=== PATIENT | male | born 1955 | race Caucasian/White ===

== ENCOUNTER 2021-07-25 12:55 | Emergency (ER) | payer MEDICARE, OTHER ==
[2021-07-25 13:16] VITALS: TEMP 97.8
[2021-07-25] MEDS ORDERED: ONDANSETRON 4 MG/2 ML VIAL IVP STA (14:11)
[2021-07-25] MEDS ORDERED: MORPHINE SULFATE 4 MG/ML SYRINGE IV STA (14:11)
[2021-07-25] MEDS ORDERED: SODIUM CHLORIDE 0.9% 1,000 ML IV STA (14:11)
--- NOTE | 2021-07-25 14:15 | ED ---
General Adult HPI - General Source: patient, RN notes reviewed Mode of arrival: ambulatory Limitations: no limitations <Kailash Strickland - Last Filed: 07/25/21 15:21> <Jose Luis Corona - Last Filed: 07/25/21 17:03> - General Chief complaint: Abdominal Pain Stated complaint: Abdominal pain Time Seen by Provider: 07/25/21 14:04 - History of Present Illness Initial comments: Patient's a 65-year-old male presented to the emergency room today with a chief complaint of epigastric discomfort. Patient does admit that he's been having symptoms for months. States been increasing. He does admit that it's worse when he wakes up in the morning. He does take [place] for chronic back pain which does seem to help with some of the pain. He does not that he's had some dry heaves. He states he's had some diarrhea. He states he tried to follow with his GI specialist was directed here to the emergency room today for a CAT scan. Patient denies any recent fever, chills, shortness of breath, chest pain, headaches or visual changes, or any other complaints. (Kailash Strickland) Patient does relate that he has had symptoms for approximately 7 weeks with their worse currently. He has the abdominal pain in the midepigastric and left upper abdomen. He does drink regularly. He's been taking his [place] for pain but has been on this for approximately 7 years. He takes 10 mg 3 times a day. He is also taking Ativan. The computed tomography scan of the abdomen and pelvis did show a degree of enteritis but otherwise no acute process. Laboratory is unremarkable. He has an appointment for a colonoscopy and EGD in 3 days. He is on Prilosec 40 mg daily currently. Overall, he may have a degree of enteritis. He also may have a degree of gastritis or peptic ulcer disease due to his alcohol abuse. He is counseled in this regard in detail. He is feeling improved on recheck. In addition he is counseled in regard to alcohol abuse, narcotic use, and benzodiazepine use and it is felt as though she should develop a plan with primary care to get off of these substances/medications and potentially even obtain rehabilitation. is very concerned and understands. Patient is discharge. (Jose Luis Corona) - Related Data Home Medications Medication Instructions Recorded Confirmed Hydrocodone/Acetaminophen [Vicodin 1 each PO Q6HR PRN 09/08/14 09/08/14 5-300 mg Tablet] Previous Rx's Medication Instructions Recorded Dicyclomine [Bentyl] 20 mg PO QID PRN #20 tablet 07/25/21 Ondansetron Odt [Zofran ODT] 8 mg PO Q8HR PRN #10 tab 07/25/21 Allergies Allergy/AdvReac Type Severity Reaction Status Date / Time ceftriaxone Allergy Unknown Verified 07/25/21 13:16 Review of Systems ROS Other: All systems not noted in ROS Statement are negative. <Kailash Strickland - Last Filed: 07/25/21 15:21> ROS Other: All systems not noted in ROS Statement are negative. <Jose Luis Corona - Last Filed: 07/25/21 17:03> ROS Statement: Those systems with pertinent positive or pertinent negative responses have been documented in the HPI. Past Medical History Past Medical History: No Reported History Additional Past Medical History / Comment(s): Carpal tunnel syndrome, chronic neck pain related to a work-related injury, History of Any Multi-Drug Resistant Organisms: None Reported Additional Past Surgical History / Comment(s): carpal tunnel BL hands Past Anesthesia/Blood Transfusion Reactions: No Reported Reaction Past Psychological History: No Psychological Hx Reported Smoking Status: Never smoker Past Alcohol Use History: Daily Past Drug Use History: Marijuana - Past Family History Father Family Medical History: Unable to Obtain Mother Family Medical History: Unable to Obtain <Kailash Strickland - Last Filed: 07/25/21 15:21> General Exam Limitations: no limitations <Kailash Strickland - Last Filed: 07/25/21 15:21> - General Exam Comments Initial Comments: General: The patient is awake and alert, in no distress, and does not appear acutely ill. Eye: extra-ocular movements are intact. There is normal conjunctiva bilaterally. No signs of icterus. Ears, nose, mouth and throat: There are moist mucous membranes and no oral lesions. Neck: The neck is supple Cardiovascular: There is a regular rate and rhythm.rub or gallop is appreciated. Respiratory: Lungs are clear to auscultation, respirations are non-labored, breath sounds are equal. No wheezes, stridor, rales, or rhonchi. Gastrointestinal: Patient does have tenderness epigastric and left upper quadrants. No rebound, guarding. Musculoskeletal: Normal ROM, no tenderness. Strength 5/5. Sensation intact. Neurological: A&O x 3. CN II-XII intact, There are no obvious motor or sensory deficits. Coordination appears grossly intact. Speech is normal. Skin: Skin is warm and dry and no rashes or lesions are noted. Psychiatric: Cooperative, appropriate mood & affect, normal judgment. (Kailash Strickland) Course Vital Signs 07/25/21 07/25/21 13:12 16:03 Temperature 97.8 F Pulse Rate 75 76 Respiratory 20 18 Rate Blood Pressure 110/69 165/91 O2 Sat by Pulse 95 96 Oximetry EKG Findings - EKG Comments: EKG Findings:: EKG performed: 1423. Normal sinus rhythm at 76 bpm. GA interval 152. QRS 74. QT/QTc 344/387. No acute ST changes. <Kailash Strickland - Last Filed: 07/25/21 15:21> Medical Decision Making - Lab Data Result diagrams: 07/25/21 14:19 07/25/21 14:19 <Kailash Strickland - Last Filed: 07/25/21 15:21> - Lab Data Result diagrams: 07/25/21 14:19 07/25/21 14:19 <Jose Luis Corona - Last Filed: 07/25/21 17:03> - Medical Decision Making 1520: Case discussed in detail with attending physician Dr. Corona and signed out at this time. (Kailash Strickland) - Lab Data Lab Results 07/25/21 07/25/21 07/25/21 Range/Units 14:19 14:19 14:19 WBC 7.1 (3.8-10.6) k/uL RBC 4.54 (4.30-5.90) m/uL Hgb 14.1 (13.0-17.5) gm/dL Hct 43.9 (39.0-53.0) % MCV 96.6 (80.0-100.0) fL MCH 31.0 (25.0-35.0) pg MCHC 32.0 (31.0-37.0) g/dL RDW 14.2 (11.5-15.5) % Plt Count 274 (150-450) k/uL MPV 7.6 Neutrophils % 65 % Lymphocytes % 22 % Monocytes % 8 % Eosinophils % 2 % Basophils % 0 % Neutrophils # 4.6 (1.3-7.7) k/uL Lymphocytes # 1.6 (1.0-4.8) k/uL Monocytes # 0.6 (0-1.0) k/uL Eosinophils # 0.1 (0-0.7) k/uL Basophils # 0.0 (0-0.2) k/uL Sodium 131 L (137-145) mmol/L Potassium 5.2 H (3.5-5.1) mmol/L Chloride 99 (98-107) mmol/L Carbon Dioxide 25 (22-30) mmol/L Anion Gap 7 mmol/L BUN 22 H (9-20) mg/dL Creatinine 1.10 (0.66-1.25) mg/dL Est GFR (CKD-EPI)AfAm 81 (>60 ml/min/1.73 sqM) Est GFR (CKD-EPI)NonAf 70 (>60 ml/min/1.73 sqM) Glucose 125 H (74-99) mg/dL Calcium 9.9 (8.4-10.2) mg/dL Total Bilirubin 0.9 (0.2-1.3) mg/dL AST 42 (17-59) U/L ALT 32 (4-49) U/L Alkaline Phosphatase 118 (38-126) U/L Troponin I (0.000-0.034) ng/mL Total Protein 6.9 (6.3-8.2) g/dL Albumin 4.1 (3.5-5.0) g/dL Amylase 65 (30-110) U/L Lipase 184 (23-300) U/L Urine Color Yellow Urine Appearance Clear (Clear) Urine pH 6.0 (5.0-8.0) Ur Specific Clare 1.022 (1.001-1.035) Urine Protein Trace H (Negative) Urine Glucose (UA) Negative (Negative) Urine Ketones Negative (Negative) Urine Blood Negative (Negative) Urine Nitrite Negative (Negative) Urine Bilirubin Negative (Negative) Urine Urobilinogen 2.0 (<2.0) mg/dL Ur Leukocyte Esterase Negative (Negative) 07/25/21 Range/Units 14:19 WBC (3.8-10.6) k/uL RBC (4.30-5.90) m/uL Hgb (13.0-17.5) gm/dL Hct (39.0-53.0) % MCV (80.0-100.0) fL MCH (25.0-35.0) pg MCHC (31.0-37.0) g/dL RDW (11.5-15.5) % Plt Count (150-450) k/uL MPV Neutrophils % % Lymphocytes % % Monocytes % % Eosinophils % % Basophils % % Neutrophils # (1.3-7.7) k/uL Lymphocytes # (1.0-4.8) k/uL Monocytes # (0-1.0) k/uL Eosinophils # (0-0.7) k/uL Basophils # (0-0.2) k/uL Sodium (137-145) mmol/L Potassium (3.5-5.1) mmol/L Chloride (98-107) mmol/L Carbon Dioxide (22-30) mmol/L Anion Gap mmol/L BUN (9-20) mg/dL Creatinine (0.66-1.25) mg/dL Est GFR (CKD-EPI)AfAm (>60 ml/min/1.73 sqM) Est GFR (CKD-EPI)NonAf (>60 ml/min/1.73 sqM) Glucose (74-99) mg/dL Calcium (8.4-10.2) mg/dL Total Bilirubin (0.2-1.3) mg/dL AST (17-59) U/L ALT (4-49) U/L Alkaline Phosphatase (38-126) U/L Troponin I <0.012 (0.000-0.034) ng/mL Total Protein (6.3-8.2) g/dL Albumin (3.5-5.0) g/dL Amylase (30-110) U/L Lipase (23-300) U/L Urine Color Urine Appearance (Clear) Urine pH (5.0-8.0) Ur Specific Clare (1.001-1.035) Urine Protein (Negative) Urine Glucose (UA) (Negative) Urine Ketones (Negative) Urine Blood (Negative) Urine Nitrite (Negative) Urine Bilirubin (Negative) Urine Urobilinogen (<2.0) mg/dL Ur Leukocyte Esterase (Negative) Disposition <Kailash Strickland - Last Filed: 10/12/21 15:21> Is patient prescribed a controlled substance at d/c from ED?: No Time of Disposition: 17:03 <Jose Luis Corona - Last Filed: 07/25/21 17:03> Clinical Impression: Abdominal pain, Nausea and vomiting, Diarrhea, Enteritis, Hypertension, Alcohol abuse, Gastritis Disposition: HOME SELF-CARE Condition: Good Instructions (If sedation given, give patient instructions): Abdominal Pain (ED), Gastroenteritis (ED), Abuse of Alcohol (ED) Prescriptions: Dicyclomine [Bentyl] 20 mg PO QID PRN #20 tablet PRN Reason: Pain Ondansetron Odt [Zofran ODT] 8 mg PO Q8HR PRN #10 tab PRN Reason: Nausea And Vomiting Referrals: Abby Barroso MD [Primary Care Provider] - 1-2 days
[2021-07-25 14:28] LABS: Basophils % (A) 0 %; Eosinophils # (A) 0.1 k/uL (0-0.7); Eosinophils % (A) 2 %; HCT 43.9 % (39.0-53.0); HGB 14.1 gm/dL (13.0-17.5); Lymphocytes # (A) 1.6 k/uL (1.0-4.8); Lymphocytes % (A) 22 %; MCV 96.6 fL (80.0-100.0); Mean Platelet Volume 7.6; Monocytes # (A) 0.6 k/uL (0-1.0); Monocytes % (A) 8 %; Neutrophils # (A) 4.6 k/uL (1.3-7.7); Neutrophils % (A) 65 %; Platelet Count 274 k/uL (150-450); RBC 4.54 m/uL (4.30-5.90); RDW 14.2 % (11.5-15.5); WBC 7.1 k/uL (3.8-10.6)
[2021-07-25 14:51] LABS: Appearance,Urine Clear (Clear); Bilirubin,Urine Negative (Negative); Blood,Urine Negative (Negative); Color,Urine Yellow; Glucose,Urine (UA) Negative (Negative); Ketones,Urine Negative (Negative); Leukocyte Esterase,Urine Negative (Negative); Nitrite,Urine Negative (Negative); Protein,Urine Trace (Negative); Specific Gravity,Urine 1.022 (1.001-1.035)
[2021-07-25 15:11] LABS: Albumin 4.1 g/dL (3.5-5.0); Calcium 9.9 mg/dL (8.4-10.2); Potassium 5.2 mmol/L (3.5-5.1); Total Bilirubin 0.9 mg/dL (0.2-1.3); Total Protein 6.9 g/dL (6.3-8.2)
--- NOTE | 2021-07-25 15:58 | CT ---
EXAMINATION TYPE: CT abdomen pelvis w con DATE OF EXAM: 07/25/2021 COMPARISON: CT 09/08/2014 HISTORY: Upper Abdominal pain. CT DLP: 671 mGycm Automated exposure control for dose reduction was used. TECHNIQUE: Helical acquisition of images from the lung bases through the pelvis have been completed. CONTRAST: Performed without Oral Contrast and with IV Contrast, patient injected with 100 mL of Isovue 300. FINDINGS: There is right inguinal hernia containing fat LUNG BASES: Calcified pleural surface present at the left lung base, some local scarring which is imp roved somewhat in the interval, no acute pleural or pericardial effusion. AORTA: No significant abnormality is appreciated. LIVER/GB: The liver shows low attenuation, there are subcentimeter probable cystic foci inferiorly ax ial image #28, and the liver shows low attenuation possibly due to hepatic steatosis, gallbladder is unremarkable PANCREAS: No significant abnormality is seen. SPLEEN: No significant interval change is seen, spleen is small. ADRENALS: No significant abnormality is seen. KIDNEYS: No significant abnormality is seen. REPRODUCTIVE ORGANS: Enlarged with associated calcification BOWEL: Fluid attenuation present within the cecum as well as some bowel loops, there is some questio nable small bowel wall folds with a thickened appearance, there is no obstruction, the appendix is no t seen. FREE AIR: No Free Air visible. ASCITES: None visible. PELVIC ADENOPATHY: None visualized. RETROPERITONEAL ADENOPATHY: No Retroperitoneal Adenopathy visible. URINARY BLADDER: No significant abnormality is seen. OSSEOUS STRUCTURES: Bilateral spondylolysis present at L5, anterolisthesis grade 1 L5-S1. Is multile marquita spondylosis, spinal curvature, facet arthropathy change. IMPRESSION: CORRELATE FOR POSSIBLE ENTERITIS. THERE IS A RIGHT INGUINAL HERNIA CONTAINING FAT WHICH IS DEVELOPED IN THE INTERVAL. ADDITIONAL FINDINGS ABOVE.
[2021-07-25 17:12] VITALS: BP 170/86; PULSE 73; RESP 16
== END 2021-07-25 17:10 | disposition home or self-care (01) ==
LOC: EC 12:55
DX: K29.70 Gastritis, unspecified, without bleeding (principal); K52.9 Noninfective gastroenteritis and colitis, unspecified; F10.10 Alcohol abuse, uncomplicated; I10 Essential (primary) hypertension; R19.7 Diarrhea, unspecified; R11.2 Nausea with vomiting, unspecified; F12.90 Cannabis use, unspecified, uncomplicated
CPT/HCPCS: 36415; 93005; 80053; 82150; 83690; 84484; 85025; 81003; 74177; 99284; 96374; 96375; 96361; J2270; J2405; Q9967

== ENCOUNTER 2021-07-28 07:51 | Day surgery (SDC) | payer MEDICARE, OTHER ==
[2021-07-26 10:49] VITALS: BMI 22.6
[~2021-07-28 07:51] MED LIST: LACTATED RINGERS 1,000 ML IV SCH
[2021-07-28 08:08] VITALS: TEMP 97.8
[2021-07-28] MEDS ORDERED: LACTATED RINGERS 1,000 ML IV ONE (08:08)
[2021-07-28] MEDS ORDERED: PROPOFOL 10 MG/ML 20 ML VIAL IV ONE (09:08)
[2021-07-28] MEDS ORDERED: LIDOCAINE 1% INJ 10MG/ML (20 ML MDV) ONE (09:08)
--- NOTE | 2021-07-28 09:36 | P.PCN ---
Date of Procedure: 07/28/21 Procedure(s) Performed: Brief history: Patient is a pleasant 65-year-old white male scheduled for an elective upper endoscopy as well as colonoscopy as a part of evaluation of epigastric pain for the last few weeks duration and screening for colon cancer Procedure performed: Esophagogastroduodenoscopy with biopsy. Colonoscopy Preoperative diagnosis: Chronic epigastric pain Screening for colon cancer Anesthesia: MAC Procedure: After informed consent was obtained from the patient was brought into the endoscopy unit and IV sedation was administered by anesthesia under continuous monitoring. Initially upper endoscopy was done. The Olympus GF 160 video endoscope was inserted inserted into the mouth and esophagus intubated without any difficulty and was gradually advanced into the stomach and duodenum and carefully examined. The bulb and second part of the duodenum appeared normal. The scope was then withdrawn into the stomach adequately insufflated with air and upon careful examination the antrum had mild gastritis and biopsies were done from this area. The body, cardia and fundus appeared normal. The scope was then withdrawn into the esophagus. The GE junction was located at 40 cm to the incisors. small sliding type hiatal hernia noted It appeared regular with no erythema erosions or ulcerations. Rest of the esophagus appeared normal. biopsies were done from the distal esophagus. Patient tolerated the procedure well. At this time the patient continued to remain sedation. Initial digital rectal examination was normal. Olympus CF 160 video colonoscope was then inserted into the rectum and gradually advanced to the cecum without any difficulty. Careful examination was performed as the scope was gradually being withdrawn. The prep was excellent. The cecum, ascending colon, transverse colon, descending colon, sigmoid colon and rectum appeared normal. Retroflexion was performed in the rectum and small internal hemorrhoidse noted. Patient tolerated the procedure well. Impression: 1. Upper endoscopy revealed mild antral gastritis and small hiatal hernia 2. Colonoscopy revealed small internal hemorrhoids but no evidence of colorectal neoplasia Recommendations: Findings of this examination were discussed with the patient as well as his family. He was advised to follow with the biopsy results. he will continue his current medications and he was advised to have a repeat screening colonoscopy in 10 years I
[2021-07-28 09:43] VITALS: PULSE 52; RESP 16
[2021-07-28 09:57] VITALS: BP 141/79
== END 2021-07-28 10:33 | disposition home or self-care (01) ==
LOC: ORWHC2ENDO 07:51
PROVIDERS: ATTEND Internal Medicine Gastroenterology
DX: Z12.11 Encounter for screening for malignant neoplasm of colon (principal); G89.29 Other chronic pain; K29.50 Unspecified chronic gastritis without bleeding; K44.9 Diaphragmatic hernia without obstruction or gangrene; K64.8 Other hemorrhoids
CPT/HCPCS: 43239; 88305; J2001; J2704; G0121

== ENCOUNTER 2022-07-05 09:50 | Day surgery (SDC) | payer MEDICARE, OTHER ==
[~2022-07-05 09:50] MED LIST changes: +HEPARIN SODIUM,PORCINE/PF 5,000 UNIT/0.5 ML SYRINGE SQ PRN; -LACTATED RINGERS 1,000 ML IV SCH
[2022-07-05] MEDS ORDERED: GABAPENTIN 300 MG CAP PO PRN (09:55)
[2022-07-05] MEDS ORDERED: ACETAMINOPHEN TAB 500 MG TAB PO PRN (09:55)
[2022-07-05] MEDS ORDERED: TAMSULOSIN 0.4 MG CAP.ER.24H PO PRN (09:55)
[2022-07-05] MEDS ORDERED: MELOXICAM 7.5 MG TAB PO PRN (09:55)
--- NOTE | 2022-07-05 10:00 | P.GSHP ---
History of Present Illness H&P Date: 07/05/22 CHIEF COMPLAINT: Inguinal hernia, right. HISTORY OF PRESENT ILLNESS: The patient is a 66-year-old male who presents with a history of swelling and pain along the right groin. He has noted increased swelling including pain of the area. Now he presents for repair of his inguinal hernia. Additionally, he has history of hyponatremia. PAST MEDICAL HISTORY: Please see list. PAST SURGICAL HISTORY: Please see list. MEDICATIONS: Please see list. ALLERGIES: Please see list. SOCIAL HISTORY: No illicit drug use FAMILY HISTORY: No reports of Crohn disease or ulcerative colitis. REVIEW OF ORGAN SYSTEMS: CONSTITUTIONAL: No reports of fevers or chills. No reports of weight loss despite prior attempts. GI: Denies any blood in stools or constipation. PHYSICAL EXAM: VITAL SIGNS: Stable GENERAL: Well-developed pleasant in no acute distress. HEENT: No scleral icterus. Extraocular movements grossly intact. Moist buccal mucosa. NECK: Supple without lymphadenopathy. CHEST: Unlabored respirations. Equal bilateral excursions. CARDIOVASCULAR: Regular rate and rhythm. Distal 2+ pulses. ABDOMEN: Soft, nondistended. No peritoneal signs. Moderate tenderness right lower quadrant MUSCULOSKELETAL: No clubbing, cyanosis, or edema. ASSESSMENT: 1. Inguinal hernia, right initial and symptomatic. 2. History of hyponatremia with COPD PLAN: 1. Recommend proceeding robotic inguinal repair with mesh with possible bilateral approach. 2. Benefits and risks of surgical intervention was discussed including possibility of open technique. 3. DVT prophylaxis. 4. Antibiotic prophylaxis. 5. Cardiac risk assessment recently obtained a month ago. 6. Patient elevated risk due to hyponatremia, COPD 7. Repeat CBC and CMP Past Medical History Past Medical History: No Reported History Additional Past Medical History / Comment(s): Carpal tunnel syndrome, chronic neck pain related to a work-related injury, History of Any Multi-Drug Resistant Organisms: None Reported Additional Past Surgical History / Comment(s): carpal tunnel BL hands Past Anesthesia/Blood Transfusion Reactions: No Reported Reaction Smoking Status: Current every day smoker - Past Family History Father Family Medical History: No Reported History Mother Family Medical History: No Reported History Brother(s) Family Medical History: Cancer Medications and Allergies Home Medications Medication Instructions Recorded Confirmed Type lisinopriL [Zestril] 10 mg PO DAILY 07/28/21 05/28/22 History Albuterol Sulfate [Ventolin HFA] 1 puff INHALATION RT-QID PRN 05/28/22 05/28/22 History Atorvastatin [Lipitor] 40 mg PO DAILY 05/28/22 05/28/22 History Multivitamins, Thera [Multivitamin 1 tab PO DAILY 05/28/22 05/28/22 History (formulary)] [place]-3/Dha/Epa/Fish Oil [Fish Oil 1 cap PO DAILY 05/28/22 05/28/22 History 1,000 mg Softgel] Omeprazole 40 mg PO DAILY 05/28/22 05/28/22 History Albuterol Inhaler [Ventolin Hfa 1 - 2 puff INHALATION RT-Q6H PRN 05/31/22 Rx Inhaler] 30 Days #1 dispenser Fluticasone Propion/Salmeterol 1 inhalation PO BID 30 Days #1 each 05/31/22 Rx [Wixela 500-50 Inhub] Ipratropium-Albuterol Nebulize 3 ml INHALATION QID 30 Days #400 ml 05/31/22 Rx [Duoneb 0.5 mg-3 mg/3 ml Soln] Folic Acid 1 mg PO DAILY #30 tab 06/01/22 Rx HYDROcodone/APAP 10-325MG [Inglis 1 tab PO TID #21 tab 06/01/22 Rx 10-325] LORazepam [Ativan] 1 mg PO TID #45 tab 06/01/22 Rx Thiamine [Vitamin B-1] 100 mg PO BID-W/MEALS #30 tab 06/01/22 Rx methylPREDNISolone Dose Pack 4 mg PO DIRECTED #21 tab 06/01/22 Rx [Medrol Dose Pack] Allergies Allergy/AdvReac Type Severity Reaction Status Date / Time ceftriaxone Allergy STATES Verified 05/28/22 21:52 "MADE ME VERY SICK"
[2022-07-05] MEDS ORDERED: DEXAMETHASONE SOD PHOSPHATE 4 MG/ML 1 ML VIAL IV ONE (10:12)
[2022-07-05] MEDS ORDERED: ONDANSETRON 4 MG/2 ML VIAL IVP ONE (10:12)
[2022-07-05] MEDS ORDERED: LACTATED RINGERS 1,000 ML IV SCH (10:12)
[2022-07-05] MEDS ORDERED: HYDROmorphone 0.5 MG/0.5 ML SYRINGE IVP PRN (10:12)
[2022-07-05] MEDS ORDERED: LIDOCAINE 1% (10MG/ML) FOR IV START INTRADERMA ONE (10:51)
[2022-07-05 10:58] LABS: Basophils # (A) 0.1 k/uL (0-0.2); Basophils % (A) 1 %; Eosinophils # (A) 0.2 k/uL (0-0.7); Eosinophils % (A) 3 %; HGB 13.2 gm/dL (13.0-17.5); Lymphocytes # (A) 1.8 k/uL (1.0-4.8); Lymphocytes % (A) 33 %; MCH 31.3 pg (25.0-35.0); MCHC 32.2 g/dL (31.0-37.0); MCV 97.1 fL (80.0-100.0); Mean Platelet Volume 7.3; Monocytes # (A) 0.5 k/uL (0-1.0); Monocytes % (A) 9 %; Neutrophils # (A) 2.7 k/uL (1.3-7.7); Neutrophils % (A) 51 %; Platelet Count 347 k/uL (150-450); RBC 4.22 m/uL (4.30-5.90); RDW 13.9 % (11.5-15.5); WBC 5.3 k/uL (3.8-10.6)
[2022-07-05] MEDS ORDERED: MIDAZOLAM 2 MG/2 ML VIAL IV ONE (11:08)
[2022-07-05] MEDS ORDERED: fentaNYL (PF) 50 MCG/ML 2 ML AMP IV ONE (11:08)
[2022-07-05 11:14] LABS: Calcium 9.2 mg/dL (8.4-10.2); Potassium 4.6 mmol/L (3.5-5.1); Total Bilirubin 0.7 mg/dL (0.2-1.3); Total Protein 6.1 g/dL (6.3-8.2)
[2022-07-05] MEDS ORDERED: GLYCOPYRROLATE 0.2 MG/ML 2 ML VIAL ONE (11:50)
[2022-07-05] MEDS ORDERED: PROPOFOL 10 MG/ML 20 ML VIAL IV ONE (11:50)
[2022-07-05] MEDS ORDERED: MIDAZOLAM 2 MG/2 ML VIAL ONE (11:50)
[2022-07-05] MEDS ORDERED: SODIUM CHLORIDE 0.9% (PF) 10 ML VIAL ONE (11:50)
[2022-07-05] MEDS ORDERED: ROCURONIUM 10 MG/ML (5 ML VIAL) IV ONE (11:50)
[2022-07-05] MEDS ORDERED: fentaNYL (PF) 50 MCG/ML 2 ML AMP ONE (11:50)
[2022-07-05] MEDS ORDERED: LIDOCAINE 2% INJ 20 MG/ML (2 ML VIAL) ONE (11:50)
[2022-07-05] MEDS ORDERED: SUCCINYLCHOLINE CHLORIDE 200 MG/10 ML VIAL IV ONE (11:50)
[2022-07-05] MEDS ORDERED: ROPIVACAINE 5 MG/ML 30 ML VIAL ONE (11:50)
[2022-07-05] MEDS ORDERED: ePHEDrine 50 MG/ML 1 ML VIAL ONE (11:50)
[2022-07-05] MEDS ORDERED: NEOSTIGMINE 1 MG/ML 10 ML VIAL ONE (11:50)
[2022-07-05] MEDS ORDERED: BUPIVACAIN-EPI 0.25%-1:200,000 30 ML VIAL SQ ONE ×2 (12:00→12:25)
--- NOTE | 2022-07-05 12:32 | P.ANPRN ---
Procedure Note - Anesthesia - Nerve Block Performed Bilateral Transversus Abdominis Single Time Out Performed: Yes (1108) Date of Procedure: 07/05/22 Procedure Start Time: : Procedure Stop Time: :18 Location of Patient: PreOp Indication: Acute Post-Operative Pain, Requested by Surgeon Specifically requested for management of pain by : Alissa Cano Sedation Type: Sedate with meaningful contact maintained Preparation: Sterile Prep Position: Supine Catheter: None Needle Types: Pajunk Needle Gauge: 21 Ultrasound used to visualize needle placement: Yes Ultrasound used to observe medication spread: Yes Injectate: 0.5% Ropivacaine (see comment for volume) (15cc + 10cc nacl pf each side) Blood Aspirated: No Pain Paresthesia on Injection Noted: No Resistance on Injection: Normal Image Stored and Saved: Yes Events: Uneventful and Well Tolerated
[2022-07-05] MEDS ORDERED: KETOROLAC 15 MG/ML 1 ML VIAL IVP ONE (13:36)
[2022-07-05 13:40] VITALS: TEMP 97.3
[2022-07-05] MEDS ORDERED: LACTATED RINGERS 1,000 ML IV ONE (14:42)
[2022-07-05] MEDS ORDERED: HYDROcodone/APAP 10-325MG 1 EACH TAB ONE (15:00)
[2022-07-05] MEDS ORDERED: HYDROcodone/APAP 10-325MG 1 EACH TAB PO ONE (15:04)
[2022-07-05] MEDS ORDERED: TAMSULOSIN 0.4 MG CAP.ER.24H PO STA (15:20)
--- NOTE | 2022-07-05 16:08 | P.OP ---
Date of Procedure: 07/05/22 Description of Procedure: SURGEON: ALISSA CANO MD PREOPERATIVE DIAGNOSES: 1. Initial right inguinal hernia. 2. Chronic obstructive pulmonary disease 3. History of hyponatremia 4. Hypertensive heart disease 5. Gastroesophageal reflux disease 6. Hyperlipidemia 7. Tobacco abuse disorder 8. Tobacco cessation and counseling POSTOPERATIVE DIAGNOSES: 1. Initial right inguinal hernia, direct 2. Chronic obstructive pulmonary disease 3. History of hyponatremia 4. Hypertensive heart disease 5. Gastroesophageal reflux disease 6. Hyperlipidemia 7. Tobacco abuse disorder 8. Tobacco cessation and counseling OPERATION: 1. Robotic-assisted da Eladio Xi laparoscopic right inguinal hernia repair with mesh, 11.[address] 2. Excision of subfascial right inguinal lipoma, 2 cm ANESTHESIA: General with local anesthetic ESTIMATED BLOOD LOSS: 5 mL. SPECIMENS REMOVED: Right inguinal hernia lipoma COMPLICATIONS: None. FINDINGS: 1. Nyhus type II direct inguinal hernia, reducible, initial, 3 cm 2. Non-absorbable 2-0 VLOC used 3. Subfascial right inguinal lipoma, 2 cm INDICATIONS: The patient is a 66-year-old gentleman who presents with history of right groin pain. Tobacco cessation counseling was performed due to tobacco abuse disorder. Now presents for definitive surgical intervention. Laparoscopic versus open and robotic approaches were discussed. Benefits and risks including bleeding, infection, injury to the vas deferens as well as sterility and chronic groin pain were reviewed. Placement of mesh was also described. Informed consent was obtained. DESCRIPTION: In the preoperative area, the patient was marked with indelible marker along the inguinal hernia. The patient was brought to the operating room and initially laid in supine position. The abdomen had been prepped and draped in standard sterile fashion. Ioban draping was also placed. Prior to incision, a timeout protocol was confirmed with surgical team regarding patient's name including procedures to be performed and location along the right groin. Initial positioning for the robotic assisted ports were selected whereby 20 cm superior to the target anatomy, 0 degree 5 mm laparoscopic trocar entry was performed at the left upper quadrant. The abdomen was insufflated to 15 mmHg which he had tolerated well. Diagnostic laparoscopy demonstrated a indirect inguinal hernia along the right groin. Next, along the epigastrium, 8 mm robot trocar was placed. An 8-mm robotic trocar was placed under direct visualization at the right upper quadrant. An 8 mm port was placed at the left upper quadrant. All trocars were positioned between 8 to 10-cm apart from each other. An accessory trocar was placed on the right lateral abdominal wall 12 mm. The Fanzter XI robot was primed, draped, prepared for docking along the right side of the patient. The patient was placed in Trendelenberg position 14-degrees. I then went to the Fanzter Xi console. The product safety technical assistant was at bedside for exchange of the robot arms and equipment. No hernia was identified along the left groin. The right inguinal hernia sac was evaginated whereby the peritoneum was scored using Endo scissors with cautery. Once completely reduced into the abdominal cavity, the peritoneal sac of the hernia was stripped along an direct inguinal hernia and a subfascial inguinal lipoma, 2-cm and sac was resected and then passed off for further pathological analysis. The size of the hernia defect was 3 cm with intraoperative films obtained. Using a 2-0 VLOC, the peritoneal defect of the right inguinal hernia site was closed using a pursestring suture. The defect was found to be completely closed with complete reduction of the right direct inguinal hernia was confirmed. As an onlay, an 11.[address] mesh by [employer] was initially cut in half and entered into the abdominal cavity via the 8 mm trocar. The mesh was tacked to the pelvis using 2-0 VLOC 9-inch length sutures. The robot was undocked from the patient's bedside. I then rescrubbed into the case. A 12 trocar in the right lateral abdominal wall was oversewn using 0 Vicryl and Mauricio Davidson. Insufflation was released from the abdominal cavity and all instruments were removed from the abdominal cavity. The rest of incisions were reapproximated using 4-0 Monocryl in a running subcuticular fashion. Incisions were cleansed using dilute hydrogen peroxide. Liquid glue was applied to the skin. At the end of the procedure, the needle, sponge and instrument counts had been verified correct by the surgical services manager. The patient had tolerated the procedure well and was taken to the postanesthesia care unit in stable condition. Plan - Discharge Summary New Discharge Prescriptions: New Cyclobenzaprine [Flexeril] 10 mg PO TID #30 tab Simethicone [Gas-X] 125 mg PO AC-TID PRN #20 capsule PRN Reason: Pain Acetaminophen Tab [Tylenol Tab] 1,000 mg PO Q6HR PRN #30 tablet PRN Reason: Pain Continue Omeprazole 40 mg PO DAILY Albuterol Sulfate [Ventolin HFA] 1 puff INHALATION RT-QID PRN PRN Reason: Shortness Of Breath Atorvastatin [Lipitor] 40 mg PO DAILY Albuterol Inhaler [Ventolin Hfa Inhaler] 1 - 2 puff INHALATION RT-Q6H PRN 30 Days #1 dispenser PRN Reason: Dyspnea Folic Acid 1 mg PO DAILY #30 tab Thiamine [Vitamin B-1] 100 mg PO BID-W/MEALS #30 tab LORazepam [Ativan] 1 mg PO TID #45 tab lisinopriL [Zestril] 10 mg PO DAILY Multivitamins, Thera [Multivitamin (formulary)] 1 tab PO DAILY Granite-3/Dha/Epa/Fish Oil [Fish Oil 1,000 mg Softgel] 1 cap PO DAILY Ipratropium-Albuterol Nebulize [Duoneb 0.5 mg-3 mg/3 ml Soln] 3 ml INHALATION QID 30 Days #400 ml Fluticasone Propion/Salmeterol [Wixela 500-50 Inhub] 1 inhalation PO BID 30 Days #1 each HYDROcodone/APAP 10-325MG [[place] 10-325] 1 tab PO TID #21 tab Discharge Medication List lisinopriL [Zestril] 10 mg PO DAILY 07/28/21 [History] Albuterol Sulfate [Ventolin HFA] 1 puff INHALATION RT-QID PRN 05/28/22 [History] Atorvastatin [Lipitor] 40 mg PO DAILY 05/28/22 [History] Multivitamins, Thera [Multivitamin (formulary)] 1 tab PO DAILY 05/28/22 [History] Granite-3/Dha/Epa/Fish Oil [Fish Oil 1,000 mg Softgel] 1 cap PO DAILY 05/28/22 [History] Omeprazole 40 mg PO DAILY 05/28/22 [History] Albuterol Inhaler [Ventolin Hfa Inhaler] 1 - 2 puff INHALATION RT-Q6H PRN 30 Days #1 dispenser 05/31/22 [Rx] Fluticasone Propion/Salmeterol [Wixela 500-50 Inhub] 1 inhalation PO BID 30 Days #1 each 05/31/22 [Rx] Ipratropium-Albuterol Nebulize [Duoneb 0.5 mg-3 mg/3 ml Soln] 3 ml INHALATION QI D 30 Days #400 ml 05/31/22 [Rx] Folic Acid 1 mg PO DAILY #30 tab 06/01/22 [Rx] HYDROcodone/APAP 10-325MG [[place] 10-325] 1 tab PO TID #21 tab 06/01/22 [Rx] LORazepam [Ativan] 1 mg PO TID #45 tab 06/01/22 [Rx] Thiamine [Vitamin B-1] 100 mg PO BID-W/MEALS #30 tab 06/01/22 [Rx] Acetaminophen Tab [Tylenol Tab] 1,000 mg PO Q6HR PRN #30 tablet 07/05/22 [Rx] Cyclobenzaprine [Flexeril] 10 mg PO TID #30 tab 07/05/22 [Rx] Simethicone [Gas-X] 125 mg PO AC-TID PRN #20 capsule 07/05/22 [Rx] Follow up Appointment(s)/Referral(s): Alissa Cano MD [STAFF PHYSICIAN] - 07/10/22 (TELEHEALTH) Patient Instructions/Handouts: *[facility] - Anesthesia Discharge Instructions, Inguinal Hernia Repair (DC), *[facility] - Managing Your Pain After Surgery Without Opioids Activity/Diet/Wound Care/Special Instructions: Using antibacterial soap. No lifting over 10 pounds 2 weeks, Jul 19February shower. No bathtub soaks for 2 weeks, Jul 19 Use ice along incisions for today to prevent swelling. Take tylenol, flexeril simethicone scheduled for 3 days for best pain relief Discharge Disposition: HOME SELF-CARE
[2022-07-05 18:22] VITALS: BP 132/73; PULSE 72; RESP 16
== END 2022-07-05 18:26 | disposition home or self-care (01) ==
LOC: OR 09:50
PROVIDERS: ATTEND Surgery Plastic and Reconstructive Surgery
DX: K40.90 Unilateral inguinal hernia, without obstruction or gangrene, not specified as recurrent (principal); G89.18 Other acute postprocedural pain; J44.9 Chronic obstructive pulmonary disease, unspecified; I11.0 Hypertensive heart disease with heart failure; I50.9 Heart failure, unspecified; K21.9 Gastro-esophageal reflux disease without esophagitis; E78.5 Hyperlipidemia, unspecified; F17.200 Nicotine dependence, unspecified, uncomplicated; G56.00 Carpal tunnel syndrome, unspecified upper limb; M54.2 Cervicalgia; G89.29 Other chronic pain; Z80.9 Family history of malignant neoplasm, unspecified; Z79.51 Long term (current) use of inhaled steroids; Z79.899 Other long term (current) drug therapy; Z88.1 Allergy status to other antibiotic agents; Z71.6 Tobacco abuse counseling
CPT/HCPCS: 49650; 11402; 64488; 80053; 85025; 88302; C1781; J2250; J0330; J1100; J2710; J0690; J2405; J3010; J2795; J1885; J2704; J1170; J1644; J2001

== ENCOUNTER 2024-06-24 12:05 | Inpatient (IN) | payer MEDICARE, OTHER ==
[2024-06-24] MEDS: methylPREDNISolone SOD SUCCI 125 MG/2 ML VIAL IV STA (12:39)
--- NOTE | 2024-06-24 12:47 | ED ---
General Adult HPI - General Chief complaint: Shortness of Breath Stated complaint: SOB Time Seen by Provider: 06/24/24 12:10 Source: patient, EMS, RN notes reviewed, old records reviewed Mode of arrival: EMS Limitations: no limitations - History of Present Illness Initial comments: This is a 68-year-old male who presents to the emergency department complaining of difficulty breathing. Patient states he has a history of COPD. Patient states he quit smoking 3 years ago. Patient states he has been coughing a lot more recently and coughing up sputum. Patient denies any fever. Patient denies being around anyone was sick. Patient denies any chest pain or palpitations. Patient has abdominal pain patient has nausea vomiting or diarrhea. - Related Data Home Medications Medication Instructions Recorded Confirmed lisinopriL [Zestril] 10 mg PO BID 07/28/21 06/24/24 Albuterol Inhaler [Ventolin Hfa 2 puff INHALATION RT-Q4H PRN 06/24/24 06/24/24 Inhaler] Cyclobenzaprine [Flexeril] 5 mg PO BID@0900,1400 06/24/24 06/24/24 Cyclobenzaprine [Flexeril] 10 mg PO HS 06/24/24 06/24/24 LORazepam [Ativan] 0.5 mg PO DAILY@1400 06/24/24 06/24/24 LORazepam [Ativan] 1 mg PO BID 06/24/24 06/24/24 Omeprazole 20 mg PO AC-BRKFST 06/24/24 06/24/24 Venlafaxine HCl [Effexor XR] 37.5 mg PO DAILY 06/24/24 06/24/24 traZODone HCL [Desyrel] 100 mg PO PC-SUPPER 06/24/24 06/24/24 Allergies Allergy/AdvReac Type Severity Reaction Status Date / Time ceftriaxone Allergy STATES Verified 06/24/24 14:11 "MADE ME VERY SICK" Review of Systems ROS Statement: Those systems with pertinent positive or pertinent negative responses have been documented in the HPI. ROS Other: All systems not noted in ROS Statement are negative. Past Medical History Past Medical History: No Reported History Additional Past Medical History / Comment(s): Carpal tunnel syndrome, chronic neck pain related to a work-related injury, History of Any Multi-Drug Resistant Organisms: None Reported Additional Past Surgical History / Comment(s): carpal tunnel BL hands Past Anesthesia/Blood Transfusion Reactions: No Reported Reaction Smoking Status: Current every day smoker - Past Family History Father Family Medical History: No Reported History Mother Family Medical History: No Reported History Brother(s) Family Medical History: Cancer General Exam - General Exam Comments Initial Comments: GENERAL: Patient is well-developed and well-nourished. Patient is nontoxic and well- hydrated and is in mild distress. ENT: Neck is soft and supple. No significant lymphadenopathy is noted. Oropharynx is clear. Moist mucous membranes. Neck has full range of motion without elic iting any pain. EYES: The sclera were anicteric and conjunctiva were pink and moist. Extraocular m ovements were intact and pupils were equal round and reactive to light. Eyelids were unremarkable. PULMONARY: Patient has expiratory wheezing CARDIOVASCULAR: There is a regular rate and rhythm without any murmurs gallops or rubs. ABDOMEN: Soft and nontender with normal bowel sounds. No palpable organomegaly was noted. There is no palpable pulsatile mass. SKIN: Skin is clear with no lesions or rashes and otherwise unremarkable. NEUROLOGIC: Patient is alert and oriented x3. Cranial nerves II through XII are grossly intact. Motor and sensory are also intact. Normal speech, volume and content. Symmetrical smile. MUSCULOSKELETAL: Normal extremities with adequate strength and full range of motion. No lower extremity swelling or edema. No calf tenderness. LYMPHATICS: No significant lymphadenopathy is noted PSYCHIATRIC: Normal psychiatric evaluation. Limitations: no limitations Course Vital Signs 06/24/24 06/24/24 06/24/24 12:07 12:21 12:30 Temperature 98.1 F 98.2 F Pulse Rate 100 107 H Respiratory 26 H 24 30 H Rate Blood Pressure 132/57 O2 Sat by Pulse 94 L 94 L Oximetry 06/24/24 06/24/24 06/24/24 13:00 13:17 13:38 Temperature Pulse Rate 103 H 103 H 104 H Respiratory 26 H Rate Blood Pressure 116/62 O2 Sat by Pulse 95 Oximetry Medical Decision Making - Medical Decision Making EKG is interpreted by myself. EKG shows a sinus tachycardia at 109 bpm ID was [id number] QRS of 73 QT interval is 290 QTc is 354. Patient has some ST segment elevation in V3 but is not a full box but it is not indicative of itself of an AR Was pt. sent in by a medical professional or institution ([facility], [facility], urgent care, hospital, or skilled nursing...) When possible be specific @ -No Did you speak to anyone other than the patient for history (EMS, parent, family, police, friend...)? What history was obtained from this source @ -No Did you review nursing and triage notes (agree or disagree)? Why? @ -I reviewed and agree with nursing and triage notes Were old charts reviewed (outside hosp., previous admission, EMS record, old EKG, old radiological studies, urgent care reports/EKG's, skilled nursing records)? Report findings @ -No old charts were reviewed Differential Diagnosis? @ -Differential Dyspnea: Coronary syndrome, arrhythmia, tamponade, asthma, COPD, pulmonary embolism, pneumonia, pneumothorax, pulmonary effusion, anaphylaxis, diabetic ketoacidosis, flailed chest, pulmonary contusion, diaphragmatic rupture, anemia, neuromuscular, this is not meant to be an all-inclusive list. EKG interpreted by me (3pts min.). @ -As above X-rays interpreted by me (1pt min.). @ -X-ray shows a opacification of left lower lung CT interpreted by me (1pt min.). @ -None done U/S interpreted by me (1pt. min.). @ -None done What testing was considered but not performed or refused? (CT, X-rays, U/S, labs)? Why? @ -None What meds were considered but not given or refused? Why? @ -None Did you discuss the management of the patient with other professionals (professionals i.e. [facility], [facility], lab, RT, psych nurse, social service coordinator, principal systems engineer, teacher, property portfolio officer, behavioral health case manager)? Give summary @ -I spoke with Dr. Peters he agreed to admit the patient admit the patient recommending orders Was smoking cessation discussed for >3mins.? @ -No Was critical care preformed (if so, how long)? @ -35 minutes Were there social determinants of health that impacted care today? How? (Homelessness, low income, unemployed, alcoholism, drug addiction, transportation, low edu. Level, literacy, decrease access to med. care, custodial, rehab)? @ -No Was there de-escalation of care discussed even if they declined (Discuss DNR or withdrawal of care, Hospice)? DNR status @ -No What co-morbidities impacted this encounter? (DM, HTN, Smoking, COPD, CAD, Cancer, CVA, ARF, Chemo, Hep., AIDS, mental health diagnosis, sleep apnea, morbid obesity)? @ -None Was patient admitted / discharged? Hospital course, mention meds given and route, prescriptions, significant lab abnormalities, going to OR and other pertinent info. @ -Patient received 2 breathing treatments and steroids in the emergency department. Patient also received antibiotics in the emergency department. Patient's x-ray showed a possible pneumonia. I spoke with Dr. Peters he agreed to admit the patient admit the patient wrote admitting orders Undiagnosed new problem with uncertain prognosis? @ -No Drug Therapy requiring intensive monitoring for toxicity (Heparin, Nitro, Insulin, Cardizem)? @ -No Were any procedures done? @ -No Diagnosis/symptom? @ -COPD exacerbation Acute, or Chronic, or Acute on Chronic? @ -Acute Uncomplicated (without systemic symptoms) or Complicated (systemic symptoms)? @ -Complicated Side effects of treatment? @ -No Exacerbation, Progression, or Severe Exacerbation? @ -No Poses a threat to life or bodily function? How? (Chest pain, USA, AR, pneumonia, PE, COPD, DKA, ARF, appy, cholecystitis, CVA, Diverticulitis, Homicidal, Suicidal, threat to staff... and all critical care pts) @ -Yes this could lead to hypoxia and endorgan dysfunction Diagnosis/symptom? @ -Pneumonia Acute, or Chronic, or Acute on Chronic? @ -Acute Uncomplicated (without systemic symptoms) or Complicated (systemic symptoms)? @ -Complicated Side effects of treatment? @ -None Exacerbation, Progression, or Severe Exacerbation] @ -No Poses a threat to life or bodily function? @ -Yes this could lead to sepsis and endorgan dysfunction - Lab Data Result diagrams: 06/24/24 12:34 06/24/24 15:32 Lab Results 06/24/24 06/24/24 06/24/24 Range/Units 12:34 12:34 12:34 WBC 12.4 H (3.8-10.6) k/uL RBC 4.53 (4.30-5.90) m/uL Hgb 14.2 (13.0-17.5) gm/dL Hct 43.4 (39.0-53.0) % MCV 95.8 (80.0-100.0) fL MCH 31.4 (25.0-35.0) pg MCHC 32.8 (31.0-37.0) g/dL RDW 14.5 (11.5-15.5) % Plt Count 429 (150-450) k/uL MPV 7.6 Neutrophils % 80 % Lymphocytes % 6 % Monocytes % 12 % Eosinophils % 0 % Basophils % 0 % Neutrophils # 10.0 H (1.3-7.7) k/uL Lymphocytes # 0.7 L (1.0-4.8) k/uL Monocytes # 1.5 H (0-1.0) k/uL Eosinophils # 0.1 (0-0.7) k/uL Basophils # 0.0 (0-0.2) k/uL Manual Slide Review Performed PT 11.5 (10.0-12.5) sec INR 1.1 (<1.2) APTT 25.2 (22.0-30.0) sec Sodium 130 L (137-145) mmol/L Potassium 6.1 H* (3.5-5.1) mmol/L Chloride 95 L (98-107) mmol/L Carbon Dioxide 23 (22-30) mmol/L Anion Gap 12 mmol/L BUN 34 H (9-20) mg/dL Creatinine 0.84 (0.66-1.25) mg/dL Est GFR (CKD-EPI)AfAm >90 (>60 ml/min/1.73 sqM) Est GFR (CKD-EPI)NonAf >90 (>60 ml/min/1.73 sqM) Glucose 126 H (74-99) mg/dL Plasma Lactic Acid Darren (0.7-2.0) mmol/L Calcium 9.3 (8.4-10.2) mg/dL Magnesium 1.9 (1.6-2.3) mg/dL Total Bilirubin 0.7 (0.2-1.3) mg/dL AST 39 (17-59) U/L ALT 18 (4-49) U/L Alkaline Phosphatase 104 (38-126) U/L Troponin I (0.000-0.034) ng/mL Total Protein 6.5 (6.3-8.2) g/dL Albumin 3.6 (3.5-5.0) g/dL Influenza Type A (PCR) (Not Detectd) Influenza Type B (PCR) (Not Detectd) RSV (PCR) (Not Detectd) SARS-CoV-2 (PCR) (Not Detectd) 06/24/24 06/24/24 06/24/24 Range/Units 12:34 12:34 12:34 WBC (3.8-10.6) k/uL RBC (4.30-5.90) m/uL Hgb (13.0-17.5) gm/dL Hct (39.0-53.0) % MCV (80.0-100.0) fL MCH (25.0-35.0) pg MCHC (31.0-37.0) g/dL RDW (11.5-15.5) % Plt Count (150-450) k/uL MPV Neutrophils % % Lymphocytes % % Monocytes % % Eosinophils % % Basophils % % Neutrophils # (1.3-7.7) k/uL Lymphocytes # (1.0-4.8) k/uL Monocytes # (0-1.0) k/uL Eosinophils # (0-0.7) k/uL Basophils # (0-0.2) k/uL Manual Slide Review PT (10.0-12.5) sec INR (<1.2) APTT (22.0-30.0) sec Sodium (137-145) mmol/L Potassium (3.5-5.1) mmol/L Chloride (98-107) mmol/L Carbon Dioxide (22-30) mmol/L Anion Gap mmol/L BUN (9-20) mg/dL Creatinine (0.66-1.25) mg/dL Est GFR (CKD-EPI)AfAm (>60 ml/min/1.73 sqM) Est GFR (CKD-EPI)NonAf (>60 ml/min/1.73 sqM) Glucose (74-99) mg/dL Plasma Lactic Acid Darren 1.7 (0.7-2.0) mmol/L Calcium (8.4-10.2) mg/dL Magnesium (1.6-2.3) mg/dL Total Bilirubin (0.2-1.3) mg/dL AST (17-59) U/L ALT (4-49) U/L Alkaline Phosphatase (38-126) U/L Troponin I 0.070 H* (0.000-0.034) ng/mL Total Protein (6.3-8.2) g/dL Albumin (3.5-5.0) g/dL Influenza Type A (PCR) Not Detected (Not Detectd) Influenza Type B (PCR) Not Detected (Not Detectd) RSV (PCR) Not Detected (Not Detectd) SARS-CoV-2 (PCR) Not Detected (Not Detectd) 06/24/24 Range/Units 15:32 WBC (3.8-10.6) k/uL RBC (4.30-5.90) m/uL Hgb (13.0-17.5) gm/dL Hct (39.0-53.0) % MCV (80.0-100.0) fL MCH (25.0-35.0) pg MCHC (31.0-37.0) g/dL RDW (11.5-15.5) % Plt Count (150-450) k/uL MPV Neutrophils % % Lymphocytes % % Monocytes % % Eosinophils % % Basophils % % Neutrophils # (1.3-7.7) k/uL Lymphocytes # (1.0-4.8) k/uL Monocytes # (0-1.0) k/uL Eosinophils # (0-0.7) k/uL Basophils # (0-0.2) k/uL Manual Slide Review PT (10.0-12.5) sec INR (<1.2) APTT (22.0-30.0) sec Sodium (137-145) mmol/L Potassium 5.5 H (3.5-5.1) mmol/L Chloride (98-107) mmol/L Carbon Dioxide (22-30) mmol/L Anion Gap mmol/L BUN (9-20) mg/dL Creatinine (0.66-1.25) mg/dL Est GFR (CKD-EPI)AfAm (>60 ml/min/1.73 sqM) Est GFR (CKD-EPI)NonAf (>60 ml/min/1.73 sqM) Glucose (74-99) mg/dL Plasma Lactic Acid Darren (0.7-2.0) mmol/L Calcium (8.4-10.2) mg/dL Magnesium (1.6-2.3) mg/dL Total Bilirubin (0.2-1.3) mg/dL AST (17-59) U/L ALT (4-49) U/L Alkaline Phosphatase (38-126) U/L Troponin I (0.000-0.034) ng/mL Total Protein (6.3-8.2) g/dL Albumin (3.5-5.0) g/dL Influenza Type A (PCR) (Not Detectd) Influenza Type B (PCR) (Not Detectd) RSV (PCR) (Not Detectd) SARS-CoV-2 (PCR) (Not Detectd) Disposition Clinical Impression: Acute exacerbation of chronic obstructive pulmonary disease, Pneumonia Disposition: ADMITTED IP TO THIS HOSP Referrals: Trish Palacios MD [Primary Care Provider] - 1-2 days Time of Disposition: 16:21
[2024-06-24 12:56] LABS: ALT 18 U/L (4-49); African American GFR (CKD) >90 (>60 ml/min/1.73 sqM); Anion Gap 12 mmol/L; Blood Urea Nitrogen 34 mg/dL (9-20); Calcium 9.3 mg/dL (8.4-10.2); Carbon Dioxide 23 mmol/L (22-30); Chloride 95 mmol/L (98-107); Glucose 126 mg/dL (74-99); Non-African American GFR(CKD) >90 (>60 ml/min/1.73 sqM); Sodium 130 mmol/L (137-145); Total Bilirubin 0.7 mg/dL (0.2-1.3)
[2024-06-24 13:00] LABS: Basophils % (A) 0 %; Eosinophils # (A) 0.1 k/uL (0-0.7); Eosinophils % (A) 0 %; HCT 43.4 % (39.0-53.0); HGB 14.2 gm/dL (13.0-17.5); Lymphocytes # (A) 0.7 k/uL (1.0-4.8); Lymphocytes % (A) 6 %; MCH 31.4 pg (25.0-35.0); MCHC 32.8 g/dL (31.0-37.0); MCV 95.8 fL (80.0-100.0); Mean Platelet Volume 7.6; Monocytes # (A) 1.5 k/uL (0-1.0); Monocytes % (A) 12 %; Neutrophils % (A) 80 %; Platelet Count 429 k/uL (150-450); RBC 4.53 m/uL (4.30-5.90); RDW 14.5 % (11.5-15.5); WBC 12.4 k/uL (3.8-10.6)
[2024-06-24] MEDS: AMPICILLIN-SULBACTAM 3 GM in SODIUM CHLORIDE 0.9% 100 ML IVPB STA (13:03)
[2024-06-24] MEDS: ALBUTEROL NEBULIZED 2.5 MG/3 ML INHALATION STA (13:17)
[2024-06-24] MEDS: IPRATROPIUM 0.5 MG/2.5 ML NEBU INHALATION STA (13:17)
[2024-06-24 13:19] LABS: INR 1.1 (<1.2); Partial Thromboplastin Time 25.2 sec (22.0-30.0); Prothrombin Time 11.5 sec (10.0-12.5)
[2024-06-24 13:24] LABS: Albumin 3.6 g/dL (3.5-5.0); Potassium 6.1 mmol/L (3.5-5.1); Total Protein 6.5 g/dL (6.3-8.2)
[2024-06-24 13:25] LABS: AST 39 U/L (17-59); Alkaline Phosphatase 104 U/L (38-126); Magnesium 1.9 mg/dL (1.6-2.3)
[2024-06-24] MEDS: SODIUM CHLORIDE 0.9% 1,000 ML IV ONE (13:58)
--- NOTE | 2024-06-24 14:00 | XR ---
EXAMINATION TYPE: XR chest 2V DATE OF EXAM: 06/24/2024 COMPARISON: 05/28/2022 HISTORY: 68 year-old male shortness of breath, difficulty breathing TECHNIQUE: Frontal and lateral views FINDINGS: Heart normal size. Patchy left mid and lower lung opacities on the frontal view increased from prior. No sizable pleural effusion. Hyperinflation. Suggestion of some pleural-based calcifications posteri elroy on the lateral view, unchanged. Possibly sequela of prior hemothorax or empyema. IMPRESSION: Chronic pleural parenchymal changes left mid to lower lung with chronic pleural calcification. Howeve r, patchy opacity at the left base has increased in the interval. Correlate to exclude a superimposed infiltrate.
[2024-06-24] MEDS ORDERED: PNEUMONIA PROTOCOL UTILIZED 1 EACH MISC PO PRN (16:21)
[2024-06-24] MEDS: AZITHROMYCIN 500 MG in SODIUM CHLORIDE 0.9% 250 ML IVPB STA (17:03)
[2024-06-24] MEDS ORDERED: ALBUTEROL NEBULIZED 2.5 MG/3 ML INHALATION PRN (18:39)
[2024-06-24] MEDS: IPRATROPIUM-ALBUTEROL 3 ML NEB INHALATION SCH (20:03)
[2024-06-24] MEDS: lisinopriL 10 MG TAB PO SCH (21:12)
[2024-06-24] MEDS: LORazepam 1 MG TAB PO SCH (21:12)
[2024-06-24] MEDS: CYCLOBENZAPRINE 10 MG TAB PO SCH (21:12)
[2024-06-24 22:46] LABS: Glucose,Whole Blood 143 mg/dL (70-110)
[2024-06-25] MEDS: PIPERACILLIN-TAZOBACTAM 3.375 GM in SODIUM CHLORIDE 0.9% 100 ML IVPB SCH (01:19)
[2024-06-25 02:02] LABS: Appearance,Urine Clear (Clear); Bilirubin,Urine Negative (Negative); Blood,Urine Negative (Negative); Color,Urine Yellow; Glucose,Urine (UA) Negative (Negative); Hyaline Casts,Urine 1 /lpf (0-2); Ketones,Urine Negative (Negative); Leukocyte Esterase,Urine Negative (Negative); Mucus,Urine Rare /hpf; Nitrite,Urine Negative (Negative); Protein,Urine 1+ (Negative); RBC,Urine 1 /hpf (0-5); Specific Gravity,Urine 1.022 (1.001-1.035); Urobilinogen,Urine <2.0 mg/dL (<2.0); WBC,Urine 1 /hpf (0-5)
--- NOTE | 2024-06-25 04:16 | P.CNPUL ---
History of Present Illness Consult date: 06/25/24 Requesting physician: Nicho Peters Reason for consult: COPD Chief complaint: Shortness of breath, productive cough History of present illness: Patient is a 68-year-old white male with past medical history significant for COPD, previous heavy tobacco use, previous pneumonia, chronic left lower lobe scarring, alcoholism, GERD, hypertension, hyperlipidemia. Patient was last seen inpatient back in 2021, he needed pulmonary clearance for an inguinal hernia repair. I do not believe he followed up in the pulmonary office postoperatively. He has severe COPD with an FEV1 35% of predicted. Unfamiliar with his home maintenance inhalers. He has home O2 available, but does not routinely use it. He quit smoking cigarettes approximately 6 to 8 months ago, but carries a heavy smoking history. 1 pack/day smoker since he was a teenager. Also drinks alcohol, consumes 3 to 4, 12 ounce beers per day. Denies history of alcohol withdrawal. Denies seizures. Denies esophageal varices. Patient pr esents to the emergency department yesterday afternoon with a chief complaint of difficulty in breathing. He has had an associated productive cough with green to yellow phlegm. Denies any fevers or chills. Denies any sick contacts. Denies chest pain, hemoptysis. Denies abdominal pain, nausea or vomiting, or diarrhea. Appetite has been poor. Denies weight loss. His primary care provider is Dr. Palacios, no recent treatment with antibiotics. Chest x-ray taken on arrival demonstrates chronic left basilar pleural and parenchymal changes with chronic pleural calcification, however, there is a patchy left basilar opacity that appears increased in density. Patient was covered on empiric antib iotics in the emergency department. Viral screen negative for influenza, RSV, COVID. CBC: WBC count 12.4, hemoglobin 14.2, hematocrit 43.4, platelets 429. CMP: Sodium 130, potassium 6.1, chloride 95, serum bicarb 23, BUN 34, creatinine 0.84, glucose 126. LFTs unremarkable. Lactic 1.7. Troponin is mildly elevated at 0.07, 0.067, and 0.6 respectively. EKG shows normal sinus rhythm without any obvious acute ischemic changes. No hyperacute T waves or QRS widening. Patient's lab draw was slightly hemolyzed, and repeat potassium is down to 5.5. States he has had some trouble voiding recently and suprapubic fullness. No documented history BPH. Denies any dysuria, hematuria, suprapubic pain, flank pain. Postvoid residual greater than 500. Patient is going to be straight cath per protocol. Patient is currently being evaluated in the emergency department, room 22. He is in no acute distress. Non-toxic appearance. He is on 4 l/min nasal cannula. SpO2 is 93%. He is mildly tachypneic breathing in the mid 20s. He is afebrile. Hemodynamics are stable. Review of Systems Constitutional: Reports fatigue, Reports poor appetite, Denies chills, Denies fever, Denies weight gain, Denies weight loss Ears, nose, mouth and throat: Denies headache, Denies nasal congestion, Denies nasal discharge, Denies sinus pain, Denies sinus pressure, Denies sore throat Cardiovascular: Denies chest pain, Denies leg edema, Denies orthopnea, Denies palpitations, Denies paroxysmal nocturnal dyspnea, Denies syncope Respiratory: Reports congestion, Reports cough with sputum, Reports dyspnea, Reports home oxygen, Denies hemoptysis, Denies pain on inspiration, Denies wheezing Gastrointestinal: Reports loss of appetite, Denies abdominal pain, Denies constipation, Denies diarrhea, Denies nausea, Denies vomiting Genitourinary: Reports urinary retention, Denies dysuria, Denies flank pain, Denies hematuria, Denies urinary frequency Musculoskeletal: Denies arm numbness/tingling, Denies leg numbness/tingling, Denies limitation of motion, Denies myalgias Integumentary: Denies rash Neurological: Denies headaches, Denies seizures, Denies syncope, Denies visual changes Psychiatric: Denies anxiety, Denies depression Past Medical History Past Medical History: No Reported History Additional Past Medical History / Comment(s): Carpal tunnel syndrome, chronic neck pain related to a work-related injury, History of Any Multi-Drug Resistant Organisms: None Reported Additional Past Surgical History / Comment(s): carpal tunnel BL hands Past Anesthesia/Blood Transfusion Reactions: No Reported Reaction Smoking Status: Current every day smoker - Past Family History Father Family Medical History: No Reported History Mother Family Medical History: No Reported History Brother(s) Family Medical History: Cancer Medications and Allergies Home Medications Medication Instructions Recorded Confirmed Type lisinopriL [Zestril] 10 mg PO BID 07/28/21 06/24/24 History Albuterol Inhaler [Ventolin Hfa 2 puff INHALATION RT-Q4H PRN 06/24/24 06/24/24 History Inhaler] Cyclobenzaprine [Flexeril] 5 mg PO BID@0900,1400 06/24/24 06/24/24 History Cyclobenzaprine [Flexeril] 10 mg PO HS 06/24/24 06/24/24 History LORazepam [Ativan] 0.5 mg PO DAILY@1400 06/24/24 06/24/24 History LORazepam [Ativan] 1 mg PO BID 06/24/24 06/24/24 History Omeprazole 20 mg PO AC-BRKFST 06/24/24 06/24/24 History Venlafaxine HCl [Effexor XR] 37.5 mg PO DAILY 06/24/24 06/24/24 History traZODone HCL [Desyrel] 100 mg PO PC-SUPPER 06/24/24 06/24/24 History Allergies Allergy/AdvReac Type Severity Reaction Status Date / Time ceftriaxone Allergy STATES Verified 06/24/24 14:11 "MADE ME VERY SICK" Physical Exam Vitals: Vital Signs Temp Pulse Resp BP Pulse Ox 06/24/24 21:00 88 20 130/85 98 06/24/24 19:31 102 H 24 134/85 93 L 06/24/24 17:09 94 20 133/76 96 06/24/24 16:32 98 26 H 130/74 96 06/24/24 13:38 104 H 06/24/24 13:17 103 H 06/24/24 13:00 103 H 26 H 116/62 95 06/24/24 12:30 98.2 F 107 H 30 H 132/57 94 L 06/24/24 12:21 24 06/24/24 12:07 98.1 F 100 26 H 94 L Intake and Output 06/24/24 06/24/24 06/25/24 14:59 22:59 06:59 Other: Weight 59.874 kg GENERAL EXAM: Alert, 68-year-old male, comfortable in no apparent distress. HEAD: Normocephalic and atraumatic EYES: Normal reaction of pupils, equal size. NOSE: Clear with pink turbinates. THROAT: No erythema or exudates. NECK: No masses, no JVD. CHEST: No chest wall deformity. LUNGS: Equal air entry with bibasilar inspiratory crackles/rales. No wheeze, rhonchi or dullness. On 4 L/min nasal cannula. No conversational dyspnea or accessory muscle use.. CVS: S1 and S2 normal with no audible murmur, regular rhythm. No extra heart sounds ABDOMEN: No hepatosplenomegaly, active bowel sounds, no guarding or rigidity. Suprapubic distention SPINE: No scoliosis or deformity SKIN: No rashes CENTRAL NERVOUS SYSTEM: No focal deficits, tone is normal in all 4 extremities. EXTREMITIES: There is no peripheral edema, clubbing, or cyanosis. Peripheral pulses are intact. Results - Laboratory Findings CBC and BMP: 06/24/24 12:34 06/24/24 15:32 PT/INR, D-dimer PT 11.5 sec (10.0-12.5) 06/24/24 12:34 INR 1.1 (<1.2) 06/24/24 12:34 Abnormal lab findings: Abnormal Labs 06/24/24 06/24/24 06/24/24 12:34 12:34 12:34 WBC 12.4 H Neutrophils # 10.0 H Lymphocytes # 0.7 L Monocytes # 1.5 H Sodium 130 L Potassium 6.1 H* Chloride 95 L BUN 34 H Glucose 126 H POC Glucose (mg/dL) Troponin I 0.070 H* 06/24/24 06/24/24 06/24/24 15:32 17:29 20:01 WBC Neutrophils # Lymphocytes # Monocytes # Sodium Potassium 5.5 H Chloride BUN Glucose POC Glucose (mg/dL) Troponin I 0.067 H* 0.060 H* 06/24/24 22:43 WBC Neutrophils # Lymphocytes # Monocytes # Sodium Potassium Chloride BUN Glucose POC Glucose (mg/dL) 143 H Troponin I - Diagnostic Findings Chest x-ray: image reviewed Assessment and Plan Assessment: Acute COPD exacerbation, chest x-ray taken on arrival demonstrates chronic left basilar pleural and parenchymal changes with chronic pleural calcification; however, there is a patchy left basilar opacity that appears increased in density. Possibility of left lower lobe community-acquired pneumonia Acute on chronic hypoxemic respiratory failure, currently maintained on 4 L/min nasal cannula, secondary to above Elevated troponins, trending down, not consistent with ACS Hyperkalemia, lab draw was slightly hemolyzed, and repeat potassium is down to 5.5. Urinary retention, postvoid residual greater than 500. Hyponatremia, likely secondary to beer potomania Severe chronic obstructive pulmonary disease Chronic hypoxemic respiratory failure, utilizes 2 L as needed basis Former tobacco dependence History of GERD without esophagitis Alcoholism, currently drinks 3-4, 12 ounce beers per day History of hypertension History of hyperlipidemia Plan: Patient's medications, labs, chest x-ray were reviewed Patient admitted with a diagnosis of acute COPD exacerbation and possible left lower lobe community-acquired pneumonia. Continue supplemental oxygen to maintain oxygen saturation of 92% or greater Start combination of DuoNebs [id number], Symbicort inhaler, and IV Solu- Medrol 40 mg 3 times daily. Continue empiric antibiotics Obtain sputum culture if possible. Blood cultures pending. Check procalcitonin level. Viral screen negative for influenza, RSV, COVID. Repeat electrolytes in the AM. Assess for signs of alcohol withdrawal Patient will be straight cathed per protocol. Check UA. Consult urology. GI prophylaxis: Protonix DVT prophylaxis: Lovenox Will continue to follow I have personally seen and examined the patient, performed the documentation and the assessment and plan as written. Number of minutes spent on the visit:20 Time with Patient: Greater than 30
--- NOTE | 2024-06-25 06:06 | P.HPIM ---
History of Present Illness H&P Date: 06/24/24 HISTORY OF PRESENT ILLNESS: 68-year-old [address] Palacios's patient with active medical history of advanced COPD chronic history of tobacco use, hypertension, hyperlipidemia, chronic lower back pain, severe GERD, chronic depression, chronic insomnia who was hospitalized last in 2021 for inguinal hernia repair require clearance at the time was in the hospital for few days was supposed to follow-up with pulmonary never did. He presented to the emergency department on 06/24/2024 with complaining of severe dyspnea and shortness of breath with cough excessive wheezing and quite hypoxia was seen and evaluated after couple rounds of updraft treatment with albuterol/ipratropium continue to have significant tight and wheezy with worsening hypoxia with pulse ox running in the 80s. His oxygen level was increased to 3 L at the time patient started on steroid, updraft treatment along with steroid nebulizer chest x-ray showed left lower lobe infiltrate which patient had scar tissue monitor the side but still looks with infection. Lactic acid was 1.7, the emergency room end up putting him on azithromycin and Zosyn besides Solu-Medrol updraft treatment and Admit patient to the hospital. His troponin was slightly elevated influenza AMB came back negative. 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 Furthermore an echocardiogram and cardiology consultation be done patient probably will have repeat CK troponin x 3. REVIEW OF SYSTEMS: CONSTITUTIONAL: Well-developed mild respiratory distress still having slightly tightness and wheezing. EYES: No icterus sclerae, no conjunctivitis. EARS, NOSE, MOUTH, THROAT, and FACE: No sore throat, lymphadenopathy, carotid bruits or deformity. RESPIRATORY: Positive shortness of breath cough or wheezes. CARDIOVASCULAR: Positive PND orthopnea palpitation or angina. GASTROINTESTINAL: No Abd pain, Nausea or vomiting, no Diarrhea or constipation, No GI Bleed, no distention or masses. GENITOURINARY: Negative for Hematuria or UTI, no kidney stones. INTEGUMENT/BREAST: Negative for any muscular injury with mild osteoarthritis.. HEMATOLOGIC/LYMPHATIC: Negative for bleed or purpura. MUSCULOSKELTAL: Generalized muscle and joint pain. NEURLOGICAL: No LOC, Sz or syncope, blurred vision dizziness or abnormality.. BEHAVIORAL/PSYCH: Negative. ENDOCRINE: Negative. PHYSICAL EXAMINATION: General Appearance: Alert, cooperative, still have mild respiratory distress. Neck HEENT: Supple, no lymphadenopathy, no thyroid enlargement, no carotid bruits. Lungs: Decreased breath sound bilaterally with fine rhonchi positive mild expiratory expiratory wheezes. Chest Wall: Decreased expansion with deep inspiration no tenderness and no deformity was found on exam, no costochondral pain or discomfort. Heart: Regular rate and rhythm, S1, S2 has mild tachycardia positive S3 systolic murmur. Back: Symmetric, no curvature, ROM normal, no CVA tenderness. Abdomen: Soft, non-tender, bowel sounds active all four quadrants, no masses, no organomegaly. Extremities: Extremities normal, atraumatic, no cyanosis or edema. Pulses: 2+ and symmetric. Skin: Skin color, texture, tugor normal, no rashes or lesions. Neurologic: Alert oriented x3 cranial nerves II through XII intact, no motor deficit, no abnormal balance or gait. ASSESSMENT AND PLAN: _Acute respiratory distress and failure: Most likely secondary to COPD exacerbation along with pneumonia continue and titrate O2 try to keep his pulse ox above 90 percentile, pulmonary consultation be done, continue steroid use for now if worsening symptoms can use BiPAP. _COPD exacerbation: And history of chronic COPD patient will be on albuterol/ipratropium nebulizer 4 times a day and every 4 hours as needed also is on Symbicort we will continue medication. Was started on Solu-Medrol 125 mg initially and continue at 60 mg every 6 hours. Pulmonary consultation was requested. _Left-sided pneumonia chest x-ray is impressive despite the scarring tissue, patient was started on Zosyn 3.375 g every 8 hours along with azithromycin will continue medication try to obtain sputum culture if possible. _Chronic history of tobacco dependency which patient had to quit close to 6 mo nths ago does not need any nicotine patch at this point. _Elevated troponin with no sign of chest pain or angina but there is a an old scar tissue patient does not remember having any previous history of heart attack or heart disease, echocardiogram will be requested will have cardiology seen patient in consultation troponin x 3 will be done. _Chronic history of alcohol dependency: Patient drink 4-6 beers on more regular basis watch for any withdrawal symptoms patient is on lorazepam 1 mg twice a day can titrate dose higher and try to use lorazepam on as-needed basis for any alcohol withdrawal watch for any delirium or tremor. [facility] protocol will be done. _Hypertension: Has been on lisinopril 10 mg twice a day continue medication. _Hyperglycemia with no history of type 2 diabetes with the steroid patient blood sugar will be higher. Continue Accu-Chek with sliding scales coverage. _Chronic depression: Has been on Effexor XR 37.5 mg along with trazodone 100 mg daily still on lorazepam as well. _Severe GERD/GI prophylaxis: Will continue on omeprazole 20 mg daily. _DVT prophylaxis: Patient will be on Lovenox 40 mg daily. CODE STATUS: Full code. Admit patient to the inpatient service for more than 2 night stay. Past Medical History Past Medical History: No Reported History Additional Past Medical History / Comment(s): Carpal tunnel syndrome, chronic neck pain related to a work-related injury, History of Any Multi-Drug Resistant Organisms: None Reported Additional Past Surgical History / Comment(s): carpal tunnel BL hands Past Anesthesia/Blood Transfusion Reactions: No Reported Reaction Smoking Status: Current every day smoker - Past Family History Father Family Medical History: No Reported History Mother Family Medical History: No Reported History Brother(s) Family Medical History: Cancer Medications and Allergies Home Medications Medication Instructions Recorded Confirmed Type lisinopriL [Zestril] 10 mg PO BID 07/28/21 06/24/24 History Albuterol Inhaler [Ventolin Hfa 2 puff INHALATION RT-Q4H PRN 06/24/24 06/24/24 History Inhaler] Cyclobenzaprine [Flexeril] 5 mg PO BID@0900,1400 06/24/24 06/24/24 History Cyclobenzaprine [Flexeril] 10 mg PO HS 06/24/24 06/24/24 History LORazepam [Ativan] 0.5 mg PO DAILY@1400 06/24/24 06/24/24 History LORazepam [Ativan] 1 mg PO BID 06/24/24 06/24/24 History Omeprazole 20 mg PO AC-BRKFST 06/24/24 06/24/24 History Venlafaxine HCl [Effexor XR] 37.5 mg PO DAILY 06/24/24 06/24/24 History traZODone HCL [Desyrel] 100 mg PO PC-SUPPER 06/24/24 06/24/24 History Allergies Allergy/AdvReac Type Severity Reaction Status Date / Time ceftriaxone Allergy STATES Verified 06/24/24 14:11 "MADE ME VERY SICK" Physical Exam Vitals: Vital Signs Temp Pulse Pulse Resp BP BP Pulse Ox 06/25/24 04:00 97.5 F L 90 24 124/77 94 L 06/25/24 00:00 36.7 F L 90 24 150/60 06/24/24 21:00 88 20 130/85 98 06/24/24 19:31 102 H 24 134/85 93 L 06/24/24 17:09 94 20 133/76 96 06/24/24 16:32 98 26 H 130/74 96 06/24/24 13:38 104 H 06/24/24 13:17 103 H 06/24/24 13:00 103 H 26 H 116/62 95 06/24/24 12:30 98.2 F 107 H 30 H 132/57 94 L 06/24/24 12:21 24 06/24/24 12:07 98.1 F 100 26 H 94 L Intake and Output 06/24/24 06/24/24 06/25/24 14:59 22:59 06:59 Output Total 600 Balance -600 Output: Urine 600 Other: Voiding Method Urinal Weight 59.874 kg Results CBC & Chem 7: 06/24/24 12:34 06/24/24 15:32 Labs: Abnormal Lab Results - Last 24 Hours (Table) 06/24/24 06/24/24 06/24/24 Range/Units 12:34 12:34 12:34 WBC 12.4 H (3.8-10.6) k/uL Neutrophils # 10.0 H (1.3-7.7) k/uL Lymphocytes # 0.7 L (1.0-4.8) k/uL Monocytes # 1.5 H (0-1.0) k/uL Sodium 130 L (137-145) mmol/L Potassium 6.1 H* (3.5-5.1) mmol/L Chloride 95 L (98-107) mmol/L BUN 34 H (9-20) mg/dL Glucose 126 H (74-99) mg/dL POC Glucose (mg/dL) (70-110) mg/dL Troponin I 0.070 H* (0.000-0.034) ng/mL Urine Protein (Negative) Urine Mucus (None) /hpf 06/24/24 06/24/24 06/24/24 Range/Units 15:32 17:29 20:01 WBC (3.8-10.6) k/uL Neutrophils # (1.3-7.7) k/uL Lymphocytes # (1.0-4.8) k/uL Monocytes # (0-1.0) k/uL Sodium (137-145) mmol/L Potassium 5.5 H (3.5-5.1) mmol/L Chloride (98-107) mmol/L BUN (9-20) mg/dL Glucose (74-99) mg/dL POC Glucose (mg/dL) (70-110) mg/dL Troponin I 0.067 H* 0.060 H* (0.000-0.034) ng/mL Urine Protein (Negative) Urine Mucus (None) /hpf 06/24/24 06/25/24 Range/Units 22:43 01:20 WBC (3.8-10.6) k/uL Neutrophils # (1.3-7.7) k/uL Lymphocytes # (1.0-4.8) k/uL Monocytes # (0-1.0) k/uL Sodium (137-145) mmol/L Potassium (3.5-5.1) mmol/L Chloride (98-107) mmol/L BUN (9-20) mg/dL Glucose (74-99) mg/dL POC Glucose (mg/dL) 143 H (70-110) mg/dL Troponin I (0.000-0.034) ng/mL Urine Protein 1+ H (Negative) Urine Mucus Rare H (None) /hpf
[2024-06-25] MEDS: PANTOPRAZOLE 40 MG TABLET PO SCH (06:39)
[2024-06-25 06:40] LABS: Glucose,Whole Blood 130 mg/dL (70-110)
[2024-06-25] MEDS: CYCLOBENZAPRINE 5 MG TAB PO SCH (07:46)
[2024-06-25] MEDS: methylPREDNISolone SOD SUCCI 40 MG/ML 1 ML VIAL IV SCH (07:46)
[2024-06-25] MEDS: ENOXAPARIN 40 MG/0.4 ML SYRINGE SQ SCH (07:46)
[2024-06-25] MEDS: VENLAFAXINE HCL ER 37.5 MG CAP PO SCH (08:07)
[2024-06-25] MEDS ORDERED: RX INFO: IV CONTRAST WAS GIVEN 1 EACH MISC MISCELLANE PRN (08:44)
[2024-06-25] MEDS: SYMBICORT 160-4.5 MCG INHALER INHALATION SCH (09:51)
[2024-06-25 09:55] LABS: Basophils % (A) 0 %; Eosinophils % (A) 0 %; HCT 39.8 % (39.0-53.0); HGB 12.6 gm/dL (13.0-17.5); Lymphocytes # (A) 0.8 k/uL (1.0-4.8); Lymphocytes % (A) 8 %; MCH 31.2 pg (25.0-35.0); MCHC 31.6 g/dL (31.0-37.0); MCV 98.8 fL (80.0-100.0); Mean Platelet Volume 7.4; Monocytes # (A) 0.6 k/uL (0-1.0); Monocytes % (A) 6 %; Neutrophils # (A) 8.2 k/uL (1.3-7.7); Neutrophils % (A) 84 %; Platelet Count 455 k/uL (150-450); RBC 4.03 m/uL (4.30-5.90); RDW 14.5 % (11.5-15.5); WBC 9.8 k/uL (3.8-10.6)
[2024-06-25 09:56] LABS: Partial Thromboplastin Time 29.5 sec (22.0-30.0); Prothrombin Time 11.4 sec (10.0-12.5)
[2024-06-25] MEDS: HEPARIN SODIUM 1,000 UN/ML (10ML VL) IV ONE (10:18)
[2024-06-25] MEDS: ASPIRIN 81 MG PO SCH (10:19)
[2024-06-25] MEDS: HEPARIN SOD,PORK IN 0.45% NACL 25,000 UNIT in 0.45% NACL 1 250ML.BAG IV SCH (10:19)
--- NOTE | 2024-06-25 11:41 | CT ---
EXAMINATION TYPE: CT chest w con DATE OF EXAM: 06/25/2024 COMPARISON: Chest x-ray 06/25/2024, CT scan 05/29/2022 HISTORY: chest pain CT DLP: 235.7 mGycm Automated exposure control for dose reduction was used. TECHNIQUE: CT scan of the chest is performed with IV Contrast, patient injected with 100 mL of Isovue 300. MIP Images are created on CT scanner and reviewed. 3D reconstructed images are created on an independent workstation and reviewed. FINDINGS: LUNGS: There is moderate centrilobular and paraseptal emphysematous changes with scattered areas of s carring or atelectasis. 2 mm peripheral nodule right lower lobe image 25 series 205. 1 mm left lower lobe micronodule image 25 series 205. 6 mm nodule left lower lobe image 29. Additional peribronchial nodules seen in the right lower lobe questionable tree-in-bud pattern. There is volume loss on the right with pleural-based calcification. There is a less than 5% residual pneumothorax improved relative exam 2021. Findings could represent fibrothorax. Inhalational\is best is related disease in the differential. There is peribronchial wall thickening involving the lower lobes likely in the basis of reactive airw ay disease, chronic bronchitis or bronchiolitis. MEDIASTINUM: There are no greater than 1 cm hilar or mediastinal lymph nodes. No pericardial effusi on is seen. Mild coronary artery calcification. Heart size normal. Trace of pericardial fluid. Thora cic ascending aorta measures 3.9 cm compatible with borderline aneurysm. OTHER: Multilevel hypertrophic and degenerative changes spine. Mild findings of hepatic steatosis. M otion artifact limits assessment of the upper abdomen. Thickening of the adrenal glands can be associ ated with benign hyperplasia or adenoma. IMPRESSION: 1. Pleural-based calcification. Differential diagnosis includes fibrothorax versus inhalational\asbes tos related disease. 2. Less than 5% loculated tiny left pneumothorax is improved from exam of 2021. 3. COPD with persistent area of consolidation involving the left lower lobe which is peripheral based adjacent to the area of suspected fibrothorax. Favor this represents chronic atelectasis over pneumo christian, correlate clinically. 4. Peribronchial wall thickening often associated with reactive airway disease, bronchitis or chronic bronchiolitis. 5. Scattered pulmonary nodules with the largest measuring 6 mm in the right lower lobe. Recommend 6 m onth follow-up CT scan according to Fleischner Society guidelines. Follow-up recommendations for incidental pulmonary nodules are per [employer]ion or [employer].
--- NOTE | 2024-06-25 12:18 | XR ---
EXAMINATION TYPE: XR chest 1V portable DATE OF EXAM: 06/25/2024 Comparison: 06/24/2024 Clinical History: 68-year-old male pneumonia Findings: Heart normal size. Mild emphysematous change. Mild interstitial densities are unchanged. Some patchy retrocardiac opacity and some pleural-based calcification periphery of the left base remain unchanged . However, the more patchy opacity at the left mid to lower lung has improved. Impression: COPD with mild emphysema and chronic interstitial densities. Chronic peripheral related disease at th e left lower lung. The previous patchy left midlung opacity has improved.
[2024-06-25] MEDS: AZITHROMYCIN 500 MG in SODIUM CHLORIDE 0.9% 250 ML IVPB SCH (17:00)
--- NOTE | 2024-06-25 17:33 | CA ---
Transthoracic Echo Report Name: Laurent Yepez Age: 68 Gender: M : 1955 Exam Date: 06/25/2024 13:57 Exam Location: [facility] Ht (in): 64 Wt (lb): 132 Ordering Physician: Nicho Peters MD Attending/Referring Phys: Geology Associate Scarlett Sharma RDCS Procedure CPT: Indications: lvfunction Cardiac Hx: COPD Technical Quality: Fair Contrast 1: Total Dose (mL): Contrast 2: Total Dose (mL): MEASUREMENTS (Male / Female) Normal Values 2D ECHO LV Diastolic Diameter PLAX 4.9 cm 4.2 - 5.9 / 3.9 - 5.3 cm IVS Diastolic Thickness 0.9 cm 0.6 - 1.0 / 0.6 - 0.9 cm LVPW Diastolic Thickness 0.9 cm 0.6 - 1.0 / 0.6 - 0.9 cm LV Relative Wall Thickness 0.4 RV Internal Dim ED PLAX 2.7 cm LV Diastolic Volume MOD BP 72.7 cm??? 67 - 155 / 56 - 104 cm??? LV Systolic Volume MOD BP 46.4 cm??? 22 - 58 / 19 - 49 cm??? LV Ejection Fraction MOD BP 36.2 % >= 55 % LV Cardiac Index MOD BP 1673.5 cm???/min???m??? LV Diastolic Volume MOD 4C 76.3 cm??? LV Systolic Volume MOD 4C 56.8 cm??? LV Ejection Fraction MOD 4C 25.6 % LV Cardiac Index MOD 4C 1242.5 cm???/min???m??? LV Diastolic Length 4C 7.1 cm LV Systolic Length 4C 5.9 cm LV Diastolic Volume MOD 2C 61.0 cm??? LV Systolic Volume MOD 2C 32.9 cm??? LV Ejection Fraction MOD 2C 46.1 % LV Cardiac Index MOD 2C 1791.9 cm???/min???m??? LV Diastolic Length 2C 8.1 cm LV Systolic Length 2C 6.3 cm LA Volume 57.0 cm??? 18 - 58 / 22 - 52 cm??? LA Volume Index 34.6 cm???/m??? 16 - 28 cm???/m??? M-MODE Aortic Root Diameter MM 3.2 cm LA Systolic Diameter MM 4.2 cm LA Ao Ratio MM 1.3 AV Cusp Separation MM 2.0 cm DOPPLER MV Area PHT 3.0 cm??? Mitral E Point Velocity 63.7 cm/s Mitral A Point Velocity 90.7 cm/s Mitral E to A Ratio 0.7 MV Deceleration Time 253.0 ms TR Peak Velocity 282.3 cm/s TR Peak Gradient 31.9 mmHg Right Atrial Pressure 8.0 mmHg Pulmonary Artery Systolic Pressu 39.9 mmHg Right Ventricular Systolic Press 39.9 mmHg FINDINGS Left Ventricle Left ventricular ejection fraction is estimated at 45-50 %. Left ventricular cavity size normal. Left ventricular wall thickness normal. Mildly reduced global left ventricular systolic function. Right Ventricle Moderate right ventricular dilatation. Generalized right ventricular hypokinesis. Mild pulmonary hypertension. Right Atrium Moderate right atrial dilatation. Left Atrium Moderately increased left atrial volume. Mitral Valve Structurally normal mitral valve. Trace mitral regurgitation. No mitral stenosis. Aortic Valve Trileaflet aortic valve. No aortic stenosis. No aortic regurgitation. Tricuspid Valve Structurally normal tricuspid valve. Trace to mild tricuspid regurgitation. No tricuspid stenosis. Pulmonic Valve Structurally normal pulmonic valve. No pulmonic stenosis. Trace pulmonic regurgitation. Pericardium No pericardial or pleural effusion. Aorta Normal size aortic root and proximal ascending aorta. CONCLUSIONS 45-50% EF, Moderate RV enlargement, Mild P. HTN Previewed by: Dr. Jason Barroso MD (Electronically Signed) Final Date: 25 June 2024 17:33
[2024-06-25] MEDS: HEPARIN SODIUM 1,000 UN/ML (10ML VL) IV PRN (18:03)
--- NOTE | 2024-06-25 18:31 | P.CRDCN ---
History of Present Illness Consult date: 06/25/24 Reason for Consult (text): Elevated troponins History of present illness: This is a 68-year-old male patient with past medical history of hypertension, gastroesophageal reflux disease. We have been asked to evaluate the patient for elevated troponins. Patient is seen today in the emergency center. Patient presented to the hospital with complaints of shortness of breath for the past 2 weeks along with cough and congestion. He is normally on home O2 at 2 L. He denies having any chest pain. No fever or chills. He denies any previous cardiac history and does not follow with a wet wash assembler. Blood pressure 116/79, heart rate 87, pulse ox 96% on 4 L nasal cannula. EKG: Sinus rhythm with T wave inversions which are more pronounced from previous Chest x-ray: Chronic parenchymal changes left mid to lower lung with chronic pleural calcification. Patchy opacity at the left base has increased. CT of the chest revealed pleural-based calcification. 5% loculated tiny left pneumothorax. 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 Reactive airway disease. Scattered pulmonary nodules with largest 6 mm in the right upper lobe. Laboratory studies: WBC 9.8, hemoglobin 12.6. Troponin 0.07, 0.067, 0.06, 0.063. Sodium 130, potassium 5.5, creatinine 0.84. proBNP 6990. Influenza A, influenza B, RSV, COVID-19 not detected. Legionella negative. Home cardiac medications: Lisinopril 10 mg twice daily Review Of Systems: At the time of my exam: CONSTITUTIONAL: Denies fever or chills. HEENT: Denies blurred vision, vision changes, or eye pain. Denies hemoptysis CARDIOVASCULAR: Denies chest pain. Denies orthopnea. Denies PND. Denies palpitations RESPIRATORY: Reports shortness of breath. Reports cough and congestion GASTROINTESTINAL: Denies abdominal pain. Denies nausea or vomiting. HEMATOLOGIC: Denies bleeding disorders. GENITOURINARY: Denies any blood in urine. SKIN: Denies puritis. Denies rash. Physical examination: Gen: This is a 68-year-old male appears to be in no acute respiratory distress VS: reviewed HEENT: Head is atraumatic, normocephalic. Pupils equal, round. Sclerae is anicteric. NECK: Supple. No JVD. LUNGS: Bilateral crackles. No intercostal retractions. HEART: Regular rate and rhythm. No murmur. ABDOMEN: Soft No tenderness. EXTREMITIES: No pedal edema. No calf tenderness. NEUROLOGICAL: Patient is awake, alert and oriented x3. Assessment: Elevated troponin, flat COPD exacerbation Acute on chronic hypoxic respiratory failure Hypertension Remote history of tobacco use and dependence Plan: Resume patient's home cardiac medications Start patient on heparin drip Start patient on aspirin 81 mg daily, Lipitor 40 mg daily Hold on beta-bret due to COPD Obtain 2-D echocardiogram and Doppler study to assess cardiac structure and function Further recommendations to follow based upon clinical course Thank you kindly for this consultation. Nurse practitioner note has been reviewed, I agree with documented findings and plan of care. Patient was seen and examined. Past Medical History Past Medical History: No Reported History Additional Past Medical History / Comment(s): Carpal tunnel syndrome, chronic neck pain related to a work-related injury, History of Any Multi-Drug Resistant Organisms: None Reported Additional Past Surgical History / Comment(s): carpal tunnel BL hands Past Anesthesia/Blood Transfusion Reactions: No Reported Reaction Smoking Status: Current every day smoker - Past Family History Father Family Medical History: No Reported History Mother Family Medical History: No Reported History Brother(s) Family Medical History: Cancer Medications and Allergies Home Medications Medication Instructions Recorded Confirmed Type lisinopriL [Zestril] 10 mg PO BID 07/28/21 06/24/24 History Albuterol Inhaler [Ventolin Hfa 2 puff INHALATION RT-Q4H PRN 06/24/24 06/24/24 History Inhaler] Cyclobenzaprine [Flexeril] 5 mg PO BID@0900,1400 06/24/24 06/24/24 History Cyclobenzaprine [Flexeril] 10 mg PO HS 06/24/24 06/24/24 History LORazepam [Ativan] 0.5 mg PO DAILY@1400 06/24/24 06/24/24 History LORazepam [Ativan] 1 mg PO BID 06/24/24 06/24/24 History Omeprazole 20 mg PO AC-BRKFST 06/24/24 06/24/24 History Venlafaxine HCl [Effexor XR] 37.5 mg PO DAILY 06/24/24 06/24/24 History traZODone HCL [Desyrel] 100 mg PO PC-SUPPER 06/24/24 06/24/24 History Allergies Allergy/AdvReac Type Severity Reaction Status Date / Time ceftriaxone Allergy STATES Verified 06/24/24 14:11 "MADE ME VERY SICK" Physical Exam Vitals: Vital Signs Temp Pulse Pulse Resp BP BP Pulse Ox 06/25/24 07:00 87 18 116/79 96 06/25/24 04:00 97.5 F L 90 24 124/77 94 L 06/25/24 00:00 36.7 F L 90 24 150/60 06/24/24 21:00 88 20 130/85 98 06/24/24 19:31 102 H 24 134/85 93 L 06/24/24 17:09 94 20 133/76 96 06/24/24 16:32 98 26 H 130/74 96 06/24/24 13:38 104 H 06/24/24 13:17 103 H 06/24/24 13:00 103 H 26 H 116/62 95 06/24/24 12:30 98.2 F 107 H 30 H 132/57 94 L 06/24/24 12:21 24 06/24/24 12:07 98.1 F 100 26 H 94 L Intake and Output 06/24/24 06/25/24 06/25/24 22:59 06:59 14:59 Output Total 600 Balance -600 Output: Urine 600 Other: Voiding Method Urinal Results 06/25/24 09:21 06/24/24 15:32 Cardiac Enzymes 06/24/24 06/24/24 06/24/24 Range/Units 12:34 12:34 17:29 AST 39 (17-59) U/L Troponin I 0.070 H* 0.067 H* (0.000-0.034) ng/mL 06/24/24 Range/Units 20:01 AST (17-59) U/L Troponin I 0.060 H* (0.000-0.034) ng/mL Coagulation 06/24/24 Range/Units 12:34 PT 11.5 (10.0-12.5) sec APTT 25.2 (22.0-30.0) sec CBC 06/24/24 Range/Units 12:34 WBC 12.4 H (3.8-10.6) k/uL RBC 4.53 (4.30-5.90) m/uL Hgb 14.2 (13.0-17.5) gm/dL Hct 43.4 (39.0-53.0) % Plt Count 429 (150-450) k/uL Comprehensive Metabolic Panel 06/24/24 06/24/24 Range/Units 12:34 15:32 Sodium 130 L (137-145) mmol/L Potassium 6.1 H* 5.5 H (3.5-5.1) mmol/L Chloride 95 L (98-107) mmol/L Carbon Dioxide 23 (22-30) mmol/L BUN 34 H (9-20) mg/dL Creatinine 0.84 (0.66-1.25) mg/dL Glucose 126 H (74-99) mg/dL Calcium 9.3 (8.4-10.2) mg/dL AST 39 (17-59) U/L ALT 18 (4-49) U/L Alkaline Phosphatase 104 (38-126) U/L Total Protein 6.5 (6.3-8.2) g/dL Albumin 3.6 (3.5-5.0) g/dL Current Medications Generic Name Dose Route Start Last Admin Trade Name Freq PRN Reason Stop Dose Admin Albuterol Sulfate 2.5 mg 06/24/24 18:39 Albuterol Nebulized 2.5 Mg/3 Ml INHALATION RT-Q4H PRN Shortness Of Breath Albuterol/Ipratropium 3 ml 06/24/24 20:00 06/24/24 20:03 Ipratropium-Albuterol 3 Ml Neb INHALATION Not Given RT-QID VINNIE Budesonide/Formoterol Fumarate 2 puff 06/25/24 08:00 Symbicort 160-4.5 Mcg Inhaler INHALATION RT-BID VINNIE Cyclobenzaprine HCl 5 mg 06/25/24 09:00 06/25/24 07:46 Cyclobenzaprine 5 Mg Tab PO 5 mg BID@0900,1400 VINNIE Administration Cyclobenzaprine HCl 10 mg 06/24/24 21:00 06/24/24 21:12 Cyclobenzaprine 10 Mg Tab PO 10 mg HS VINNIE Administration Enoxaparin Sodium 40 mg 06/25/24 09:00 06/25/24 07:46 Enoxaparin 40 Mg/0.4 Ml Syringe SQ 40 mg DAILY VINNIE Administration Piperacillin Sod/Tazobactam 100 mls @ 25 mls/hr 06/25/24 00:00 06/25/24 07:46 Sod 3.375 gm/ Sodium Chloride IVPB 06/30/24 00:00 25 mls/hr Q8HR VINNIE Administration Protocol Azithromycin 500 mg/ Sodium 250 mls @ 250 mls/hr 06/25/24 18:00 Chloride IVPB 06/26/24 18:59 Q24H VINNIE Protocol Lisinopril 10 mg 06/24/24 21:00 06/25/24 07:46 Lisinopril 10 Mg Tab PO 10 mg BID VINNIE Administration Lorazepam 1 mg 06/24/24 21:00 06/25/24 07:46 Lorazepam 1 Mg Tab PO 1 mg BID VINNIE Administration Methylprednisolone Sodium Succinate 40 mg 06/25/24 08:00 06/25/24 07:46 Methylprednisolone Sod Succi 40 Mg/Ml 1 Ml Vial IV 40 mg Q8HR VINNIE Administration Miscellaneous Information 1 each 06/24/24 16:21 Pneumonia Protocol Utilized 1 Each Misc PO ONCE PRN Per Protocol Pantoprazole Sodium 40 mg 06/25/24 07:30 06/25/24 06:39 Pantoprazole 40 Mg Tablet PO 40 mg AC-BRKFST VINNIE Administration Trazodone HCl 100 mg 06/25/24 18:30 Trazodone Hcl 100 Mg Tab PO PC-SUPPER VINNIE Venlafaxine HCl 37.5 mg 06/25/24 09:00 06/25/24 08:07 Venlafaxine Hcl Er 37.5 Mg Cap PO 37.5 mg DAILY VINNIE Administration Intake and Output 06/24/24 06/25/24 06/25/24 22:59 06:59 14:59 Output Total 600 Balance -600 Output: Urine 600 Other: Voiding Method Urinal 06/24/24 12:34 06/24/24 15:32
[2024-06-25] MEDS: ATORVASTATIN 40 MG TAB PO SCH (21:04)
[2024-06-25] MEDS: traZODone HCL 100 MG TAB PO SCH (21:05)
[2024-06-26 06:15] LABS: Basophils % (A) 0 %; Eosinophils % (A) 0 %; HCT 34.7 % (39.0-53.0); HGB 10.9 gm/dL (13.0-17.5); Hypochromasia Moderate; Lymphocytes # (A) 0.9 k/uL (1.0-4.8); Lymphocytes % (A) 10 %; MCHC 31.3 g/dL (31.0-37.0); MCV 99.1 fL (80.0-100.0); Mean Platelet Volume 6.9; Monocytes # (A) 0.4 k/uL (0-1.0); Monocytes % (A) 4 %; Neutrophils # (A) 7.5 k/uL (1.3-7.7); Neutrophils % (A) 83 %; Platelet Count 461 k/uL (150-450); RDW 14.4 % (11.5-15.5); WBC 9.1 k/uL (3.8-10.6)
[2024-06-26 06:26] LABS: ALT 18 U/L (4-49); AST 23 U/L (17-59); African American GFR (CKD) >90 (>60 ml/min/1.73 sqM); Albumin 2.5 g/dL (3.5-5.0); Alkaline Phosphatase 71 U/L (38-126); Anion Gap 2 mmol/L; Blood Urea Nitrogen 27 mg/dL (9-20); Calcium 8.9 mg/dL (8.4-10.2); Carbon Dioxide 31 mmol/L (22-30); Chloride 102 mmol/L (98-107); Glucose 145 mg/dL (74-99); Non-African American GFR(CKD) >90 (>60 ml/min/1.73 sqM); Potassium 5.1 mmol/L (3.5-5.1); Sodium 135 mmol/L (137-145); Total Bilirubin 0.2 mg/dL (0.2-1.3); Total Protein 4.9 g/dL (6.3-8.2)
[2024-06-26 06:29] LABS: INR 1.1 (<1.2); Prothrombin Time 11.7 sec (10.0-12.5)
[2024-06-26 08:36] LABS: Glucose,Whole Blood 151 mg/dL (70-110)
--- NOTE | 2024-06-26 10:15 | P.PN ---
Subjective Progress Note Date: 06/26/24 Reason for Consult (text): Elevated troponins History of present illness: This is a 68-year-old male patient with past medical history of hypertension, gastroesophageal reflux disease. We have been asked to evaluate the patient for elevated troponins. Patient is seen today in the emergency center. Patient presented to the hospital with complaints of shortness of breath for the past 2 weeks along with cough and congestion. He is normally on home O2 at 2 L. He denies having any chest pain. No fever or chills. He denies any previous cardiac history and does not follow with a sociocultural anthropology professor. Blood pressure 116/79, heart rate 87, pulse ox 96% on 4 L nasal cannula. EKG: Sinus rhythm with T wave inversions which are more pronounced from previous Chest x-ray: Chronic parenchymal changes left mid to lower lung with chronic pleural calcification. Patchy opacity at the left base has increased. CT of the chest revealed pleural-based calcification. 5% loculated tiny left pneumothorax. 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 Reactive airway disease. Scattered pulmonary nodules with largest 6 mm in the right upper lobe. Laboratory studies: WBC 9.8, hemoglobin 12.6. Troponin 0.07, 0.067, 0.06, 0.063. Sodium 130, potassium 5.5, creatinine 0.84. proBNP 6990. Influenza A, influenza B, RSV, COVID-19 not detected. Legionella negative. Home cardiac medications: Lisinopril 10 mg twice daily 06/26 Patient is seen today in follow-up. He remains in the ER waiting for bed on the cardiac stepdown unit. Yesterday, patient was started on heparin drip, aspirin and Lipitor. Beta-bret was held due to his COPD exacerbation. Echocardiogram revealed EF of 45 to 50%, moderate RV enlargement, mild pulmonary hypertension. Patient states that his breathing is better today from yesterday. He continues to have some wheezing. Blood pressure 135/80, heart rate 95, pulse ox 94% on 4 L nasal cannula. Patient states that his breathing is easier today from yesterday. He continues to have some wheezing but improved. Physical examination: Gen: This is a 68-year-old male appears to be in no acute respiratory distress VS: reviewed HEENT: Head is atraumatic, normocephalic. Pupils equal, round. Sclerae is anicteric. NECK: Supple. No JVD. LUNGS: Bilateral wheezing. No intercostal retractions. HEART: Regular rate and rhythm. No murmur. ABDOMEN: Soft No tenderness. EXTREMITIES: No pedal edema. No calf tenderness. NEUROLOGICAL: Patient is awake, alert and oriented x3. Assessment: Elevated troponin, flat COPD exacerbation Acute on chronic hypoxic respiratory failure Mild cardiomyopathy with EF of 45 to 50% Hypertension Remote history of tobacco use and dependence Plan: Continue patient's home cardiac medications Continue patient on heparin drip for 48 hours Continue patient on aspirin 81 mg daily, Lipitor 40 mg daily Hold on beta-bret due to COPD No aggressive cardiac workup during this hospitalization. Plan will be for ou tpatient stress testing after he follows up in the office. Further recommendations to follow based upon clinical course Nurse practitioner note has been reviewed, I agree with documented findings and plan of care. Patient was seen and examined. Objective - Vital Signs Vital signs: Vital Signs Temp 98.2 F 06/26/24 06:24 Pulse 95 06/26/24 06:24 Resp 16 06/26/24 06:24 BP 135/80 06/26/24 06:24 Pulse Ox 94 L 06/26/24 06:24 FiO2 Intake & Output 06/25/24 06/26/24 06/26/24 18:59 06:59 18:59 Intake Total 55.684 113.131 Balance 55.684 113.131 Intake: Intake, IV Titration 55.684 113.131 Amount Heparin Sod,Pork in 0.45% 55.684 113.131 NaCl 25,000 unit In 0.45 % NaCl 1 250ml.bag @ 12 UNITS/KG/HR 7.185 mls/hr IV .Q24H [facility] Rx#: [id number] Other: Voiding Method Toilet - Labs CBC & Chem 7: 06/26/24 05:48 06/26/24 05:48 Labs: Abnormal Lab Results - Last 24 Hours (Table) 06/25/24 06/25/24 06/25/24 Range/Units 00:28 07:44 09:21 RBC 4.03 L (4.30-5.90) m/uL Hgb 12.6 L (13.0-17.5) gm/dL Hct (39.0-53.0) % Plt Count 455 H (150-450) k/uL Neutrophils # 8.2 H (1.3-7.7) k/uL Lymphocytes # 0.8 L (1.0-4.8) k/uL APTT (22.0-30.0) sec Sodium (137-145) mmol/L Carbon Dioxide (22-30) mmol/L BUN (9-20) mg/dL Glucose (74-99) mg/dL Troponin I 0.063 H* (0.000-0.034) ng/mL Total Protein (6.3-8.2) g/dL Albumin (3.5-5.0) g/dL Procalcitonin 0.66 H (0.02-0.50) ng/mL 06/25/24 06/26/24 06/26/24 Range/Units 17:09 05:48 05:48 RBC 3.50 L (4.30-5.90) m/uL Hgb 10.9 L (13.0-17.5) gm/dL Hct 34.7 L (39.0-53.0) % Plt Count 461 H (150-450) k/uL Neutrophils # (1.3-7.7) k/uL Lymphocytes # 0.9 L (1.0-4.8) k/uL APTT 34.5 H (22.0-30.0) sec Sodium 135 L (137-145) mmol/L Carbon Dioxide 31 H (22-30) mmol/L BUN 27 H (9-20) mg/dL Glucose 145 H (74-99) mg/dL Troponin I (0.000-0.034) ng/mL Total Protein 4.9 L (6.3-8.2) g/dL Albumin 2.5 L (3.5-5.0) g/dL Procalcitonin (0.02-0.50) ng/mL 06/26/24 Range/Units 05:48 RBC (4.30-5.90) m/uL Hgb (13.0-17.5) gm/dL Hct (39.0-53.0) % Plt Count (150-450) k/uL Neutrophils # (1.3-7.7) k/uL Lymphocytes # (1.0-4.8) k/uL APTT 74.0 H (22.0-30.0) sec Sodium (137-145) mmol/L Carbon Dioxide (22-30) mmol/L BUN (9-20) mg/dL Glucose (74-99) mg/dL Troponin I (0.000-0.034) ng/mL Total Protein (6.3-8.2) g/dL Albumin (3.5-5.0) g/dL Procalcitonin (0.02-0.50) ng/mL Microbiology - Last 24 Hours (Table) 06/24/24 13:00 Blood Culture - Preliminary Blood
--- NOTE | 2024-06-26 12:00 | P.PN ---
Subjective Progress Note Date: 06/26/24 Patient is a 68-year-old white male with past medical history significant for COPD, previous heavy tobacco use, previous pneumonia, chronic left lower lobe scarring, alcoholism, GERD, hypertension, hyperlipidemia. Patient was last seen inpatient back in 2021, he needed pulmonary clearance for an inguinal hernia repair. I do not believe he followed up in the pulmonary office postoperatively. He has severe COPD with an FEV1 35% of predicted. Unfamiliar with his home maintenance inhalers. He has home O2 available, but does not routinely use it. He quit smoking cigarettes approximately 6 to 8 months ago, but carries a heavy smoking history. 1 pack/day smoker since he was a teenager. Also drinks alcohol, consumes 3 to 4, 12 ounce beers per day. Denies history of alcohol withdrawal. Denies seizures. Denies esophageal varices. Patient presents to the emergency department yesterday afternoon with a chief complaint of difficulty in breathing. He has had an associated productive cough with green to yellow phlegm. Denies any fevers or chills. Denies any sick contacts. Denies chest pain, hemoptysis. Denies abdominal pain, nausea or vomiting, or diarrhea. Appetite has been poor. Denies weight loss. His primary care provider is Dr. Palacios, no recent treatment with antibiotics. Chest x-ray taken on arrival demonstrates chronic left basilar pleural and parenchymal changes with chronic pleural calcification, however, there is a patchy left basilar opacity that appears increased in density. Patient was covered on empiric antibiotics in the emergency department. Viral screen negative for influenza, RSV, COVID. CBC: WBC count 12.4, hemoglobin 14.2, hematocrit 43.4, platelets 429. CMP: Sodium 130, potassium 6.1, chloride 95, serum bicarb 23, BUN 34, creatinine 0.84, glucose 126. LFTs unremarkable. Lactic 1.7. Troponin is mildly elevated at 0.07, 0.067, and 0.6 respectively. EKG shows normal sinus rhythm without any obvious acute ischemic changes. No hyperacute T waves or QRS widening. Patient's lab draw was slightly hemolyzed, and repeat potassium is down to 5.5. States he has had some trouble voiding recently and suprapubic fullness. No documented history BPH. Denies any dysuria, hematuria, suprapubic pain, flank pain. Postvoid residual greater than 500. Patient is going to be straight cath per protocol. Patient is currently being evaluated in the [facility] department, room 22. He is in no acute distress. Non-toxic appearance. He is on 4 l/min nasal cannula. SpO2 is 93%. He is mildly tachypneic breathing in the mid 20s. He is afebrile. Hemodynamics are stable. The patient is seen today June 26, 2024 in follow-up in the emergency department. He is currently resting comfortably on the stretcher. Awake and alert in no acute distress. Feeling a bit better today compared to yesterday. He is maintaining O2 saturations in the 90s on 4 L/min per nasal cannula. Blood cultures revealing no growth thus far. Sputum culture pending. White count 9.1. Hemoglobin 10.9. Platelets 461. Sodium 135. Potassium 5.1. Bicarb 31. BUN 27. Creatinine 0.82. Glucose 145. Calcitonin 0.66. He is continued on Symbicort, DuoNeb and elations, IV Solu-Medrol. Antibiotics in the form of Zosyn and azithromycin. He remains on a heparin drip. Echocardiogram reveals impaired left ventricular systolic function with ejection fraction 45 to 50%. Moderate RV enlargement. Mild pulmonary hypertension. CT scan of the chest revealed pleural-based calcification. Differential diagnosis includes fibrothorax versus inhalation asbestos related disease. Less than 5% loculated tiny left pneumothorax, improved since 2021. COPD with persistent area of consolidation involving the left lower lobe which is peripheral based adjacent to the area of suspected fibrothorax. Findings favor chronic atelectasis over pneumonia. Chronic bronchiolitis. Scattered pulmonary nodules with largest measuring 6 mm in the right lower lobe. Objective - Vital Signs Vital signs: Vital Signs Temp 98.2 F 06/26/24 06:24 Pulse 97 06/26/24 11:45 Resp 20 06/26/24 11:08 BP 129/88 06/26/24 11:08 Pulse Ox 94 L 06/26/24 11:08 FiO2 Intake & Output 06/25/24 06/26/24 06/26/24 18:59 06:59 18:59 Intake Total 55.684 113.131 Balance 55.684 113.131 Intake: Intake, IV Titration 55.684 113.131 Amount Heparin Sod,Pork in 0.45% 55.684 113.131 NaCl 25,000 unit In 0.45 % NaCl 1 250ml.bag @ 12 UNITS/KG/HR 7.185 mls/hr IV .Q24H PENDING SALE TO [facility] Rx#: [id number] Other: Voiding Method Toilet - Exam GENERAL EXAM: Alert, 68-year-old male, on 4 L nasal cannula, comfortable in no apparent distress. HEAD: Normocephalic and atraumatic EYES: Normal reaction of pupils, equal size. NOSE: Clear with pink turbinates. THROAT: No erythema or exudates. NECK: No masses, no JVD. CHEST: No chest wall deformity. LUNGS: Equal air entry with bibasilar inspiratory crackles/rales. No wheeze, rhonchi or dullness. CVS: S1 and S2 normal with no audible murmur, regular rhythm. No extra heart sounds ABDOMEN: No hepatosplenomegaly, active bowel sounds, no guarding or rigidity. Suprapubic distention SPINE: No scoliosis or deformity SKIN: No rashes CENTRAL NERVOUS SYSTEM: No focal deficits, tone is normal in all 4 extremities. EXTREMITIES: There is no peripheral edema, clubbing, or cyanosis. Peripheral pulses are intact. - Labs CBC & Chem 7: 06/26/24 05:48 06/26/24 05:48 Labs: Abnormal Lab Results - Last 24 Hours (Table) 06/25/24 06/25/24 06/26/24 Range/Units 09:21 17:09 05:48 RBC 3.50 L (4.30-5.90) m/uL Hgb 10.9 L (13.0-17.5) gm/dL Hct 34.7 L (39.0-53.0) % Plt Count 461 H (150-450) k/uL Neutrophils # 8.2 H (1.3-7.7) k/uL Lymphocytes # 0.8 L 0.9 L (1.0-4.8) k/uL APTT 34.5 H (22.0-30.0) sec Sodium (137-145) mmol/L Carbon Dioxide (22-30) mmol/L BUN (9-20) mg/dL Glucose (74-99) mg/dL POC Glucose (mg/dL) (70-110) mg/dL Total Protein (6.3-8.2) g/dL Albumin (3.5-5.0) g/dL 06/26/24 06/26/24 06/26/24 Range/Units 05:48 05:48 08:24 RBC (4.30-5.90) m/uL Hgb (13.0-17.5) gm/dL Hct (39.0-53.0) % Plt Count (150-450) k/uL Neutrophils # (1.3-7.7) k/uL Lymphocytes # (1.0-4.8) k/uL APTT 74.0 H (22.0-30.0) sec Sodium 135 L (137-145) mmol/L Carbon Dioxide 31 H (22-30) mmol/L BUN 27 H (9-20) mg/dL Glucose 145 H (74-99) mg/dL POC Glucose (mg/dL) 151 H (70-110) mg/dL Total Protein 4.9 L (6.3-8.2) g/dL Albumin 2.5 L (3.5-5.0) g/dL Microbiology - Last 24 Hours (Table) 06/24/24 18:26 Gram Stain - Preliminary Sputum 06/24/24 13:00 Blood Culture - Preliminary Blood Assessment and Plan Assessment: Acute COPD exacerbation, chest x-ray taken on arrival demonstrates chronic left basilar pleural and parenchymal changes with chronic pleural calcification; however, there is a patchy left basilar opacity that appears increased in density. Possibility of left lower lobe community-acquired pneumonia. Procalcitonin 0.66. CT scan of the chest revealed pleural-based calcification. Differential diagnosis includes fibrothorax versus inhalation asbestos related disease. Less than 5% loculated tiny left pneumothorax, improved since 2021. COPD with persistent area of consolidation involving the left lower lobe which is peripheral based adjacent to the area of suspected fibrothorax. Findings favor chronic atelectasis over pneumonia. Chronic bronchiolitis. Scattered pulmonary nodules with largest measuring 6 mm in the right lower lobe. Acute on chronic hypoxemic respiratory failure, currently maintained on 4 L/min nasal cannula, secondary to above Elevated troponins, trending down, not consistent with ACS Hyperkalemia, lab draw was slightly hemolyzed, and repeat potassium is down to 5.1 Urinary retention, postvoid residual greater than 500 Hyponatremia, likely secondary to beer potomania Severe chronic obstructive pulmonary disease Chronic hypoxemic respiratory failure, utilizes 2 L as needed basis Former tobacco dependence History of GERD without esophagitis Alcoholism, currently drinks 3-4, 12 ounce beers per day History of hypertension History of hyperlipidemia Plan: The patient was seen and evaluated CT scan of the chest, echocardiogram, labs and medications reviewed Continue the current treatment plan including antibiotics, bronchodilators, steroids Remains on a heparin drip per cardiology Plan is for outpatient stress testing once recovered from this hospitalization We will continue to follow I have personally seen and examined the patient, performed the documentation and the assessment and plan as written. Number of minutes spent on the visit: 10.
[2024-06-26 12:11] LABS: Glucose,Whole Blood 154 mg/dL (70-110)
--- NOTE | 2024-06-26 13:21 | P.PN ---
Subjective Progress Note Date: 06/25/24 HISTORY OF PRESENT ILLNESS: 68-year-old [address] Palacios's patient with active medical history of advanced COPD chronic history of tobacco use, hypertension, hyperlipidemia, chronic lower back pain, severe GERD, chronic depression, chronic insomnia who was hospitalized last in 2021 for inguinal hernia repair require clearance at the time was in the hospital for few days was supposed to follow-up with pulmonary never did. He presented to the emergency department on 06/24/2024 with complaining of severe dyspnea and shortness of breath with cough excessive wheezing and quite hypoxia was seen and evaluated after couple rounds of updraft treatment with albuterol/ipratropium continue to have significant tight and wheezy with worsening hypoxia with pulse ox running in the 80s. His oxygen level was increased to 3 L at the time patient started on steroid, updraft treatment along with steroid nebulizer chest x-ray showed left lower lobe infiltrate which patient had scar tissue monitor the side but still looks with infection. Lactic acid was 1.7, the emergency room end up putting him on azithromycin and Zosyn besides Solu-Medrol updraft treatment and Admit patient to the hospital. His troponin was slightly elevated influenza AMB came back negative. 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 Furthermore an echocardiogram and cardiology consultation be done patient probably will have repeat CK troponin x 3. 06/25/2024: He was seen and evaluated by cardiology and pulmonary agree with aggressive management for left-sided pneumonia along with COPD exacerbation with steroids, O2, nebulizer management. Patient is doing slightly better with the current treatment will continue advanced management for now. CT of the chest s hould be ordered to see element of the scar tissue versus infiltrate or infection versus malignancy was performed which showed pleural-based calcification with different diagnosis differential diagnosis included fibrothorax versus inhalation of asbestos related disease. Also there is consolidation left lower lobe which is peripheral based adjacent to an area of suspected fibrothorax favor this representing chronic atelectasis over pneumonia correlate clinically. Marbin bronchial wall thickening often associated with reactive airway bronchitis or chronic bronchiolitis. Also finding of scattered pulmonary nodular the largest is 6 mm should be follow-up with CAT scan in 6 months. Cardiology had recommended running an echocardiogram sadly came with ejection fraction of 45-50 percentile with left ventricular wall thickening mildly reduced global left ventricular systolic function with right moderate ventricular dilatation generalized right ventricular hypokinesia with mild pulmonary hypertension. With elevated troponin and the current finding with a slight low ejection fraction cardiology recommended to resume home cardiac medication and start patient on heparin drip titrate statin up to 40 mg atorvastatin with aspirin hold beta-bret due to COPD and might recommend further management including heart cath when patient is more stable. REVIEW OF SYSTEMS: CONSTITUTIONAL: Well-developed mild respiratory distress still having slightly tightness and wheezing. EYES: No icterus sclerae, no conjunctivitis. EARS, NOSE, MOUTH, THROAT, and FACE: No sore throat, lymphadenopathy, carotid bruits or deformity. RESPIRATORY: Positive shortness of breath cough or wheezes. CARDIOVASCULAR: Positive PND orthopnea palpitation or angina. GASTROINTESTINAL: No Abd pain, Nausea or vomiting, no Diarrhea or constipation, No GI Bleed, no distention or masses. GENITOURINARY: Negative for Hematuria or UTI, no kidney stones. INTEGUMENT/BREAST: Negative for any muscular injury with mild osteoarthritis.. HEMATOLOGIC/LYMPHATIC: Negative for bleed or purpura. MUSCULOSKELTAL: Generalized muscle and joint pain. NEURLOGICAL: No LOC, Sz or syncope, blurred vision dizziness or abnormality.. BEHAVIORAL/PSYCH: Negative. ENDOCRINE: Negative. PHYSICAL EXAMINATION: General Appearance: Alert, cooperative, still have mild respiratory distress. Neck HEENT: Supple, no lymphadenopathy, no thyroid enlargement, no carotid bruits. Lungs: Decreased breath sound bilaterally with fine rhonchi positive mild expiratory expiratory wheezes. Chest Wall: Decreased expansion with deep inspiration no tenderness and no deformity was found on exam, no costochondral pain or discomfort. Heart: Regular rate and rhythm, S1, S2 has mild tachycardia positive S3 systolic murmur. Back: Symmetric, no curvature, ROM normal, no CVA tenderness. Abdomen: Soft, non-tender, bowel sounds active all four quadrants, no masses, no organomegaly. Extremities: Extremities normal, atraumatic, no cyanosis or edema. Pulses: 2+ and symmetric. Skin: Skin color, texture, tugor normal, no rashes or lesions. Neurologic: Alert oriented x3 cranial nerves II through XII intact, no motor deficit, no abnormal balance or gait. ASSESSMENT AND PLAN: _Acute respiratory distress and failure: Most likely secondary to COPD exacerbation along with pneumonia continue and titrate O2 try to keep his pulse ox above 90 percentile, pulmonary consultation be done, continue steroid use for now if worsening symptoms can use BiPAP. _COPD exacerbation: And history of chronic COPD patient will be on albuterol/ipratropium nebulizer 4 times a day and every 4 hours as needed also is on Symbicort we will continue medication. Was started on Solu-Medrol 125 mg initially and continue at 60 mg every 6 hours. Pulmonary consultation was requested. _Left-sided pneumonia chest x-ray is impressive despite the scarring tissue, patient was started on Zosyn 3.375 g every 8 hours along with azithromycin will continue medication try to obtain sputum culture if possible. _Pulmonary nodular: Multiple require another CAT scan in 6 months. 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 _Chronic history of tobacco dependency which patient had to quit close to 6 months ago does not need any nicotine patch at this point. _Elevated troponin: Seen cardiology with positive result on echocardiogram with significant decrease in ejection fraction along with pulmonary hypertension and hypokinesia of the ventricle wall. Patient was started on heparin drip along with aspirin and higher dose of Lipitor to require further workup including heart catheter as an outpatient. _Cardiomyopathy with significant reduction in ejection fraction, continue current management with medication including BETZY or ARB, diuretics and holding off on beta-bret for now. _Pulmonary hypertension: Most likely due to his COPD mostly and that secondary pulmonary hypertension continue current management with more aggressive management for COPDMedication including diuretics such as furosemide and spironolactone can be an option along with beta-bret or calcium channel bret. _Chronic history of alcohol dependency: Patient drink 4-6 beers on more regular basis watch for any withdrawal symptoms patient is on lorazepam 1 mg twice a day can titrate dose higher and try to use lorazepam on as-needed basis for any alcohol withdrawal watch for any delirium or tremor. [facility] protocol will be done. _Hypertension: Has been on lisinopril 10 mg twice a day continue medication. _Hyperglycemia with no history of type 2 diabetes with the steroid patient blood sugar will be higher. Continue Accu-Chek with sliding scales coverage. _Chronic depression: Has been on Effexor XR 37.5 mg along with trazodone 100 mg daily still on lorazepam as well. _Severe GERD/GI prophylaxis: Will continue on omeprazole 20 mg daily. 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 Objective - Vital Signs Vital signs: Vital Signs Temp 97.5 F L 06/25/24 04:00 Pulse 90 06/25/24 04:00 Resp 24 06/25/24 04:00 BP 124/77 06/25/24 04:00 Pulse Ox 94 L 06/25/24 04:00 FiO2 Intake & Output 06/24/24 06/24/24 06/25/24 06:59 18:59 06:59 Output Total 600 Balance -600 Weight 59.874 kg Output: Urine 600 Other: Voiding Method Urinal - Labs CBC & Chem 7: 06/26/24 05:48 06/26/24 05:48 Labs: Abnormal Lab Results - Last 24 Hours (Table) 06/24/24 06/24/24 06/24/24 Range/Units 12:34 12:34 12:34 WBC 12.4 H (3.8-10.6) k/uL Neutrophils # 10.0 H (1.3-7.7) k/uL Lymphocytes # 0.7 L (1.0-4.8) k/uL Monocytes # 1.5 H (0-1.0) k/uL Sodium 130 L (137-145) mmol/L Potassium 6.1 H* (3.5-5.1) mmol/L Chloride 95 L (98-107) mmol/L BUN 34 H (9-20) mg/dL Glucose 126 H (74-99) mg/dL POC Glucose (mg/dL) (70-110) mg/dL Troponin I 0.070 H* (0.000-0.034) ng/mL Urine Protein (Negative) Urine Mucus (None) /hpf 06/24/24 06/24/24 06/24/24 Range/Units 15:32 17:29 20:01 WBC (3.8-10.6) k/uL Neutrophils # (1.3-7.7) k/uL Lymphocytes # (1.0-4.8) k/uL Monocytes # (0-1.0) k/uL Sodium (137-145) mmol/L Potassium 5.5 H (3.5-5.1) mmol/L Chloride (98-107) mmol/L BUN (9-20) mg/dL Glucose (74-99) mg/dL POC Glucose (mg/dL) (70-110) mg/dL Troponin I 0.067 H* 0.060 H* (0.000-0.034) ng/mL Urine Protein (Negative) Urine Mucus (None) /hpf 06/24/24 06/25/24 Range/Units 22:43 01:20 WBC (3.8-10.6) k/uL Neutrophils # (1.3-7.7) k/uL Lymphocytes # (1.0-4.8) k/uL Monocytes # (0-1.0) k/uL Sodium (137-145) mmol/L Potassium (3.5-5.1) mmol/L Chloride (98-107) mmol/L BUN (9-20) mg/dL Glucose (74-99) mg/dL POC Glucose (mg/dL) 143 H (70-110) mg/dL Troponin I (0.000-0.034) ng/mL Urine Protein 1+ H (Negative) Urine Mucus Rare H (None) /hpf
--- NOTE | 2024-06-26 13:23 | P.PN ---
Subjective Progress Note Date: 06/26/24 HISTORY OF PRESENT ILLNESS: 68-year-old [address] Palacios's patient with active medical history of advanced COPD chronic history of tobacco use, hypertension, hyperlipidemia, chronic lower back pain, severe GERD, chronic depression, chronic insomnia who was hospitalized last in 2021 for inguinal hernia repair require clearance at the time was in the hospital for few days was supposed to follow-up with pulmonary never did. He presented to the emergency department on 06/24/2024 with complaining of severe dyspnea and shortness of breath with cough excessive wheezing and quite hypoxia was seen and evaluated after couple rounds of updraft treatment with albuterol/ipratropium continue to have significant tight and wheezy with worsening hypoxia with pulse ox running in the 80s. His oxygen level was increased to 3 L at the time patient started on steroid, updraft treatment along with steroid nebulizer chest x-ray showed left lower lobe infiltrate which patient had scar tissue monitor the side but still looks with infection. Lactic acid was 1.7, the emergency room end up putting him on azithromycin and Zosyn besides Solu-Medrol updraft treatment and Admit patient to the hospital. His troponin was slightly elevated influenza AMB came back negative. 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 Furthermore an echocardiogram and cardiology consultation be done patient probably will have repeat CK troponin x 3. 06/25/2024: He was seen and evaluated by cardiology and pulmonary agree with aggressive management for left-sided pneumonia along with COPD exacerbation with steroids, O2, nebulizer management. Patient is doing slightly better with the current treatment will continue advanced management for now. CT of the chest s hould be ordered to see element of the scar tissue versus infiltrate or infection versus malignancy was performed which showed pleural-based calcification with different diagnosis differential diagnosis included fibrothorax versus inhalation of asbestos related disease. Also there is consolidation left lower lobe which is peripheral based adjacent to an area of suspected fibrothorax favor this representing chronic atelectasis over pneumonia correlate clinically. Marbin bronchial wall thickening often associated with reactive airway bronchitis or chronic bronchiolitis. Also finding of scattered pulmonary nodular the largest is 6 mm should be follow-up with CAT scan in 6 months. Cardiology had recommended running an echocardiogram sadly came with ejection fraction of 45-50 percentile with left ventricular wall thickening mildly reduced global left ventricular systolic function with right moderate ventricular dilatation generalized right ventricular hypokinesia with mild pulmonary hypertension. With elevated troponin and the current finding with a slight low ejection fraction cardiology recommended to resume home cardiac medication and start patient on heparin drip titrate statin up to 40 mg atorvastatin with aspirin hold beta-bret due to COPD and might recommend further management including heart cath when patient is more stable. 06/26/2024: Patient is not stable medically for any invasive cardiac testing, Troponin has plateau no further increase, was on heparin drip for the last 24 hours which will be probably stopped today. Patient require further workup cardiology diaz as an outpatient when his pulmonary status is more stable to include not limited to heart catheter. Also continue aggressive management pulmonary diaz for his COPD exacerbation and for bronchitis/pneumonia which patient seems to respond slightly better to it continue to be on acute on chronic respiratory failure but slight improvement compared to before. REVIEW OF SYSTEMS: CONSTITUTIONAL: Well-developed mild respiratory distress still having slightly tightness and wheezing. EYES: No icterus sclerae, no conjunctivitis. EARS, NOSE, MOUTH, THROAT, and FACE: No sore throat, lymphadenopathy, carotid bruits or deformity. RESPIRATORY: Positive shortness of breath cough or wheezes. CARDIOVASCULAR: Positive PND orthopnea palpitation or angina. GASTROINTESTINAL: No Abd pain, Nausea or vomiting, no Diarrhea or constipation, No GI Bleed, no distention or masses. GENITOURINARY: Negative for Hematuria or UTI, no kidney stones. INTEGUMENT/BREAST: Negative for any muscular injury with mild osteoarthritis.. HEMATOLOGIC/LYMPHATIC: Negative for bleed or purpura. MUSCULOSKELTAL: Generalized muscle and joint pain. NEURLOGICAL: No LOC, Sz or syncope, blurred vision dizziness or abnormality.. BEHAVIORAL/PSYCH: Negative. ENDOCRINE: Negative. PHYSICAL EXAMINATION: General Appearance: Alert, cooperative, still have mild respiratory distress. Neck HEENT: Supple, no lymphadenopathy, no thyroid enlargement, no carotid bruits. Lungs: Decreased breath sound bilaterally with fine rhonchi positive mild expiratory expiratory wheezes. Chest Wall: Decreased expansion with deep inspiration no tenderness and no deformity was found on exam, no costochondral pain or discomfort. Heart: Regular rate and rhythm, S1, S2 has mild tachycardia positive S3 systolic murmur. Back: Symmetric, no curvature, ROM normal, no CVA tenderness. Abdomen: Soft, non-tender, bowel sounds active all four quadrants, no masses, no organomegaly. Extremities: Extremities normal, atraumatic, no cyanosis or edema. Pulses: 2+ and symmetric. Skin: Skin color, texture, tugor normal, no rashes or lesions. Neurologic: Alert oriented x3 cranial nerves II through XII intact, no motor deficit, no abnormal balance or gait. ASSESSMENT AND PLAN: _Acute respiratory failure: Most likely secondary to COPD exacerbation along with pneumonia continue and titrate O2 try to keep his pulse ox above 90 percentile, pulmonary consultation be done, continue steroid use for now if worsening symptoms can use BiPAP. _COPD exacerbation: And history of chronic COPD patient will be on albuterol/ipratropium nebulizer 4 times a day and every 4 hours as needed also is on Symbicort we will continue medication. Was started on Solu-Medrol 125 mg initially and continue at 60 mg every 6 hours. Pulmonary consultation was requested. _Left-sided pneumonia chest x-ray is impressive despite the scarring tissue, patient was started on Zosyn 3.375 g every 8 hours along with azithromycin will continue medication try to obtain sputum culture if possible. _Pulmonary nodular: Multiple require another CAT scan in 6 months. 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 _Chronic history of tobacco dependency which patient had to quit close to 6 months ago does not need any nicotine patch at this point. _Elevated troponin: Seen cardiology with positive result on echocardiogram with significant decrease in ejection fraction along with pulmonary hypertension and hypokinesia of the ventricle wall. Patient was started on heparin drip along with aspirin and higher dose of Lipitor to require further workup including heart catheter as an outpatient. _Cardiomyopathy with significant reduction in ejection fraction, continue current management with medication including BETZY or ARB, diuretics and holding off on beta-bret for now. _Pulmonary hypertension: Most likely due to his COPD mostly and that secondary pulmonary hypertension continue current management with more aggressive manag ement for COPDMedication including diuretics such as furosemide and spironolactone can be an option along with beta-bret or calcium channel bret. _Chronic history of alcohol dependency: Patient drink 4-6 beers on more regular basis watch for any withdrawal symptoms patient is on lorazepam 1 mg twice a day can titrate dose higher and try to use lorazepam on as-needed basis for any alcohol withdrawal watch for any delirium or tremor. CIWA protocol will be done. _Hypertension: Has been on lisinopril 10 mg twice a day continue medication. _Hyperglycemia with no history of type 2 diabetes with the steroid patient blood sugar will be higher. Continue Accu-Chek with sliding scales coverage. _Chronic depression: Has been on Effexor XR 37.5 mg along with trazodone 100 mg daily still on lorazepam as well. _Severe GERD/GI prophylaxis: Will continue on omeprazole 20 mg daily. Discussion: The patient is still hospitalized for COPD exacerbation and respiratory failure at this point given incidental finding of elevated troponin with significant reduction in ejection fraction and cardiac history which patient will have to handle as an outpatient in the meanwhile still on a heavy dose of steroid which through the weekend will be reduced to smaller dose and expected probably to be in the hospital over the weekend till Saturday or Saturday. Objective - Vital Signs Vital signs: Vital Signs Temp 98.2 F 06/26/24 06:24 Pulse 89 06/26/24 08:43 Resp 20 06/26/24 08:37 BP 135/80 06/26/24 08:37 Pulse Ox 94 L 06/26/24 08:37 FiO2 Intake & Output 06/25/24 06/26/24 06/26/24 18:59 06:59 18:59 Intake Total 55.684 113.131 Balance 55.684 113.131 Intake: Intake, IV Titration 55.684 113.131 Amount Heparin Sod,Pork in 0.45% 55.684 113.131 NaCl 25,000 unit In 0.45 % NaCl 1 250ml.bag @ 12 UNITS/KG/HR 7.185 mls/hr IV .Q24H [facility] Rx#: [id number] Other: Voiding Method Toilet - Labs CBC & Chem 7: 06/26/24 05:48 06/26/24 05:48 Labs: Abnormal Lab Results - Last 24 Hours (Table) 06/25/24 06/25/24 06/26/24 Range/Units 09:21 17:09 05:48 RBC 3.50 L (4.30-5.90) m/uL Hgb 10.9 L (13.0-17.5) gm/dL Hct 34.7 L (39.0-53.0) % Plt Count 461 H (150-450) k/uL Neutrophils # 8.2 H (1.3-7.7) k/uL Lymphocytes # 0.8 L 0.9 L (1.0-4.8) k/uL APTT 34.5 H (22.0-30.0) sec Sodium (137-145) mmol/L Carbon Dioxide (22-30) mmol/L BUN (9-20) mg/dL Glucose (74-99) mg/dL POC Glucose (mg/dL) (70-110) mg/dL Total Protein (6.3-8.2) g/dL Albumin (3.5-5.0) g/dL 06/26/24 06/26/24 06/26/24 Range/Units 05:48 05:48 08:24 RBC (4.30-5.90) m/uL Hgb (13.0-17.5) gm/dL Hct (39.0-53.0) % Plt Count (150-450) k/uL Neutrophils # (1.3-7.7) k/uL Lymphocytes # (1.0-4.8) k/uL APTT 74.0 H (22.0-30.0) sec Sodium 135 L (137-145) mmol/L Carbon Dioxide 31 H (22-30) mmol/L BUN 27 H (9-20) mg/dL Glucose 145 H (74-99) mg/dL POC Glucose (mg/dL) 151 H (70-110) mg/dL Total Protein 4.9 L (6.3-8.2) g/dL Albumin 2.5 L (3.5-5.0) g/dL Microbiology - Last 24 Hours (Table) 06/24/24 13:00 Blood Culture - Preliminary Blood
[2024-06-27 06:09] LABS: Glucose,Whole Blood 153 mg/dL (70-110)
--- NOTE | 2024-06-27 10:07 | P.PN ---
Subjective Progress Note Date: 06/27/24 The patient was seen and evaluated this morning with he is feeling better with the shortness of breath has improved. No symptoms of chest pain or chest discomfort. On examination the wheezing has improved significantly with stable vital signs and regular rate and rhythm and no edema was noted in the lower extremities Assessment Acute hypoxic respiratory failure COPD exacerbation Pneumonia Mild cardiomyopathy Evidence of myocardial injury with no evidence of ischemia Plan Continue the current medical regimen Restart the patient back on small dose of beta-bret since the wheezing has improved Continue aspirin and statin Consider ruling out CAD probably as an outpatient Objective - Vital Signs Vital signs: Vital Signs Temp 98.1 F 06/27/24 09:00 Pulse 81 06/27/24 09:00 Resp 19 06/27/24 09:00 BP 142/82 06/27/24 09:00 Pulse Ox 92 L 06/27/24 09:00 FiO2 Intake & Output 06/26/24 06/27/24 06/27/24 18:59 06:59 18:59 Output Total 650 Balance -650 Weight 59.874 kg 61.5 kg Output: Urine 650 Other: Voiding Method Toilet Toilet Toilet # Voids 0 - Labs CBC & Chem 7: 06/26/24 05:48 06/26/24 05:48 Labs: Abnormal Lab Results - Last 24 Hours (Table) 06/26/24 06/27/24 Range/Units 12:09 06:08 POC Glucose (mg/dL) 154 H 153 H (70-110) mg/dL Microbiology - Last 24 Hours (Table) 06/24/24 13:00 Blood Culture - Preliminary Blood 06/24/24 18:26 Gram Stain - Preliminary Sputum Sputum Culture - Preliminary
[2024-06-27 11:10] VITALS: BMI 23.3
[2024-06-27] MEDS: METOPROLOL TARTRATE 12.5 MG TAB PO SCH (11:21)
[2024-06-27 11:38] LABS: Glucose,Whole Blood 137 mg/dL (70-110)
--- NOTE | 2024-06-27 12:02 | P.PN ---
Subjective Progress Note Date: 06/27/24 Patient is a 68-year-old white male with past medical history significant for COPD, previous heavy tobacco use, previous pneumonia, chronic left lower lobe scarring, alcoholism, GERD, hypertension, hyperlipidemia. Patient was last seen inpatient back in 2021, he needed pulmonary clearance for an inguinal hernia repair. I do not believe he followed up in the pulmonary office postoperatively. He has severe COPD with an FEV1 35% of predicted. Unfamiliar with his home maintenance inhalers. He has home O2 available, but does not routinely use it. He quit smoking cigarettes approximately 6 to 8 months ago, but carries a heavy smoking history. 1 pack/day smoker since he was a teenager. Also drinks alcohol, consumes 3 to 4, 12 ounce beers per day. Denies history of alcohol withdrawal. Denies seizures. Denies esophageal varices. Patient presents to the emergency department yesterday afternoon with a chief complaint of difficulty in breathing. He has had an associated productive cough with green to yellow phlegm. Denies any fevers or chills. Denies any sick contacts. Denies chest pain, hemoptysis. Denies abdominal pain, nausea or vomiting, or diarrhea. Appetite has been poor. Denies weight loss. His primary care provider is Dr. Palacios, no recent treatment with antibiotics. Chest x-ray taken on arrival demonstrates chronic left basilar pleural and parenchymal changes with chronic pleural calcification, however, there is a patchy left basilar opacity that appears increased in density. Patient was covered on empiric antibiotics in the emergency department. Viral screen negative for influenza, RSV, COVID. CBC: WBC count 12.4, hemoglobin 14.2, hematocrit 43.4, platelets 429. CMP: Sodium 130, potassium 6.1, chloride 95, serum bicarb 23, BUN 34, creatinine 0.84, glucose 126. LFTs unremarkable. Lactic 1.7. Troponin is mildly elevated at 0.07, 0.067, and 0.6 respectively. EKG shows normal sinus rhythm without any obvious acute ischemic changes. No hyperacute T waves or QRS widening. Patient's lab draw was slightly hemolyzed, and repeat potassium is down to 5.5. States he has had some trouble voiding recently and suprapubic fullness. No documented history BPH. Denies any dysuria, hematuria, suprapubic pain, flank pain. Postvoid residual greater than 500. Patient is going to be straight cath per protocol. Patient is currently [facility], room [facility]. He is in no acute distress. Non-toxic appearance. He is on 4 l/min nasal cannula. SpO2 is 93%. He is mildly tachypneic breathing in the mid 20s. He is afebrile. Hemodynamics are stable. The patient is seen today June 26, 2024 in follow-up in the emergency department. He is currently resting comfortably on the stretcher. Awake and alert in no acute distress. Feeling a bit better today compared to yesterday. He is maintaining O2 saturations in the 90s on 4 L/min per nasal cannula. Blood cultures revealing no growth thus far. Sputum culture pending. White count 9.1. Hemoglobin 10.9. Platelets 461. Sodium 135. Potassium 5.1. Bicarb 31. BUN 27. Creatinine 0.82. Glucose 145. Calcitonin 0.66. He is continued on Symbicort, DuoNeb and elations, IV Solu-Medrol. Antibiotics in the form of Zosyn and azithromycin. He remains on a heparin drip. Echocardiogram reveals impaired left ventricular systolic function with ejection fraction 45 to 50%. Moderate RV enlargement. Mild pulmonary hypertension. CT scan of the chest revealed pleural-based calcification. Differential diagnosis includes fibrothorax versus inhalation asbestos related disease. Less than 5% loculated tiny left pneumothorax, improved since 2021. COPD with persistent area of consolidation involving the left lower lobe which is peripheral based adjacent to the area of suspected fibrothorax. Findings favor chronic atelectasis over pneumonia. Chronic bronchiolitis. Scattered pulmonary nodules with largest measuring 6 mm in the right lower lobe. The patient is seen today June 27, 2024 in follow-up on the selective care unit. He is currently laying flat in bed. Awake and alert in no acute distress. Maintaining O2 saturations in the 90s on 4 L/min per nasal cannula. Denies any worsening shortness of breath, cough or congestion. Hemodynamically stable. Blood and sputum cultures revealed no growth. Glucose 137. He remains on DuoNeb inhalations, Symbicort, Solu-Medrol. Antibiotics in the form of Zosyn. Objective - Vital Signs Vital signs: Vital Signs Temp 98.1 F 06/27/24 09:00 Pulse 91 09/14/24 11:56 Resp 19 06/27/24 09:00 BP 142/82 06/27/24 09:00 Pulse Ox 92 L 06/27/24 09:00 FiO2 Intake & Output 06/26/24 06/27/24 06/27/24 18:59 06:59 18:59 Output Total 650 Balance -650 Weight 59.874 kg 61.5 kg 61.5 kg Output: Urine 650 Other: Voiding Method Toilet Toilet Toilet # Voids 0 - Exam GENERAL EXAM: Alert, 68-year-old male, resting comfortably in bed, on 4 L nasal cannula, comfortable in no apparent distress. HEAD: Normocephalic and atraumatic EYES: Normal reaction of pupils, equal size. NOSE: Clear with pink turbinates. THROAT: No erythema or exudates. NECK: No masses, no JVD. CHEST: No chest wall deformity. LUNGS: Equal air entry with bibasilar inspiratory crackles/rales. No wheeze, rhonchi or dullness. CVS: S1 and S2 normal with no audible murmur, regular rhythm. No extra heart sounds ABDOMEN: No hepatosplenomegaly, active bowel sounds, no guarding or rigidity. Suprapubic distention SPINE: No scoliosis or deformity SKIN: No rashes CENTRAL NERVOUS SYSTEM: No focal deficits, tone is normal in all 4 extremities. EXTREMITIES: There is no peripheral edema, clubbing, or cyanosis. Peripheral pulses are intact. - Labs CBC & Chem 7: 06/26/24 05:48 06/26/24 05:48 Labs: Abnormal Lab Results - Last 24 Hours (Table) 06/26/24 06/27/24 06/27/24 Range/Units 12:09 06:08 11:36 POC Glucose (mg/dL) 154 H 153 H 137 H (70-110) mg/dL Microbiology - Last 24 Hours (Table) 06/24/24 18:26 Gram Stain - Final Sputum Sputum Culture - Final 06/24/24 13:00 Blood Culture - Preliminary Blood Assessment and Plan Assessment: Acute COPD exacerbation, chest x-ray taken on arrival demonstrates chronic left basilar pleural and parenchymal changes with chronic pleural calcification; however, there is a patchy left basilar opacity that appears increased in density. Possibility of left lower lobe community-acquired pneumonia. Procalcitonin 0.66. CT scan of the chest revealed pleural-based calcification. Differential diagnosis includes fibrothorax versus inhalation asbestos related disease. Less than 5% loculated tiny left pneumothorax, improved since 2021. COPD with persistent area of consolidation involving the left lower lobe which is peripheral based adjacent to the area of suspected fibrothorax. Findings favor chronic atelectasis over pneumonia. Chronic bronchiolitis. Scattered pulmonary nodules with largest measuring 6 mm in the right lower lobe. Acute on chronic hypoxemic respiratory failure, currently maintained on 4 L/min nasal cannula, secondary to above Elevated troponins, trending down, not consistent with ACS Hyperkalemia, lab draw was slightly hemolyzed, and repeat potassium is down to 5.1 Urinary retention, postvoid residual greater than 500 Hyponatremia, likely secondary to beer potomania Severe chronic obstructive pulmonary disease Chronic hypoxemic respiratory failure, utilizes 2 L as needed basis Former tobacco dependence History of GERD without esophagitis Alcoholism, currently drinks 3-4, 12 ounce beers per day History of hypertension History of hyperlipidemia Plan: The patient was seen and evaluated Labs and medications reviewed Blood and sputum cultures revealed no growth Continue the current treatment plan Plan is for outpatient stress testing We will continue to follow I have personally seen and examined the patient, performed the documentation and the assessment and plan as written. Number of minutes spent on the visit: 10.
--- NOTE | 2024-06-27 15:45 | P.PN ---
Subjective Progress Note Date: 06/27/24 Interval History: 68-year-old [address] Palacios's patient with active medical history of advanced COPD chronic history of tobacco use, hypertension, hyperlipidemia, chronic lower back pain, severe GERD, chronic depression, chronic insomnia who was hospitalized last in 2021 for inguinal hernia repair require clearance at the time was in the hospital for few days was supposed to follow-up with pulmonary never did. He presented to the emergency department on 06/24/2024 with complaining of severe dyspnea and shortness of breath with cough excessive wheezing and quite hypoxia was seen and evaluated after couple rounds of updraft treatment with albuterol/ipratropium continue to have significant tight and wheezy with worsening hypoxia with pulse ox running in the 80s. His oxygen level was increased to 3 L at the time patient started on steroid, updraft treatment along with steroid nebulizer chest x-ray showed left lower lobe infiltrate which patient had scar tissue monitor the side but still looks with infection. Lactic acid was 1.7, the emergency room end up putting him on azithromycin and Zosyn be sides Solu-Medrol updraft treatment and Admit patient to the hospital. His troponin was slightly elevated influenza AMB came back negative. 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 Furthermore an echocardiogram and cardiology consultation be done patient probably will have repeat CK troponin x 3. 06/25/2024: He was seen and evaluated by cardiology and pulmonary agree with aggressive management for left-sided pneumonia along with COPD exacerbation with steroids, O2, nebulizer management. Patient is doing slightly better with the current treatment will continue advanced management for now. CT of the chest should be ordered to see element of the scar tissue versus infiltrate or infection versus malignancy was performed which showed pleural-based calcification with different diagnosis differential diagnosis included fibrothorax versus inhalation of asbestos related disease. Also there is consolidation left lower lobe which is peripheral based adjacent to an area of suspected fibrothorax favor this representing chronic atelectasis over pneumonia correlate clinically. Marbin bronchial wall thickening often associated with reactive airway bronchitis or chronic bronchiolitis. Also finding of scattered pulmonary nodular the largest is 6 mm should be follow-up with CAT scan in 6 months. Cardiology had recommended running an echocardiogram sadly came with ejection fraction of 45-50 percentile with left ventricular wall thickening mildly reduced global left ventricular systolic function with right moderate ventricular dilatation generalized right ventricular hypokinesia with mild pulmonary hypertension. With elevated troponin and the current finding with a slight low ejection fraction cardiology recommended to resume home cardiac medication and start patient on heparin drip titrate statin up to 40 mg atorvastatin with aspirin h old beta-bret due to COPD and might recommend further management including heart cath when patient is more stable. 06/26/2024: Patient is not stable medically for any invasive cardiac testing, Troponin has plateau no further increase, was on heparin drip for the last 24 hours which will be probably stopped today. Patient require further workup cardiology diaz as an outpatient when his pulmonary status is more stable to include not limited to heart catheter. Also continue aggressive management pulmonary diaz for his COPD exacerbation and for bronchitis/pneumonia which patient seems to respond slightly better to it continue to be on acute on chronic respiratory failure but slight improvement compared to before. 06/27/2024--patient was seen and examined today. Cardiology following, haresh mmending outpatient follow-up for ischemic workup. Pulmonary following, recommended to continue bronchodilator, steroids, currently on antibiotics Zosyn. Currently on 4 L oxygen. Vital stable, reported feeling better. Blood and sputum cultures no growth so far. No new labs today. Assessment and plan: _Acute respiratory failure: Most likely secondary to COPD exacerbation along w ith pneumonia continue and titrate O2 try to keep his pulse ox above 90 percentile, pulmonary consultation be done, continue steroid use for now if worsening symptoms can use BiPAP. _COPD exacerbation: And history of chronic COPD patient will be on albuterol/ipratropium nebulizer 4 times a day and every 4 hours as needed also is on Symbicort we will continue medication. Was started on Solu-Medrol 125 mg initially and continue at 60 mg every 6 hours. Pulmonary consultation was requested. _Left-sided pneumonia chest x-ray is impressive despite the scarring tissue, patient was started on Zosyn 3.375 g every 8 hours along with azithromycin will continue medication try to obtain sputum culture if possible. _Pulmonary nodular: Multiple require another CAT scan in 6 months. 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 _Chronic history of tobacco dependency which patient had to quit close to 6 months ago does not need any nicotine patch at this point. _Elevated troponin: Seen cardiology with positive result on echocardiogram with significant decrease in ejection fraction along with pulmonary hypertension and hypokinesia of the ventricle wall. Patient was started on heparin drip along with aspirin and higher dose of Lipitor to require further workup including heart catheter as an outpatient. _Cardiomyopathy with significant reduction in ejection fraction, continue current management with medication including BETZY or ARB, diuretics and holding off on beta-bret for now. _Pulmonary hypertension: Most likely due to his COPD mostly and that secondary pulmonary hypertension continue current management with more aggressive management for COPDMedication including diuretics such as furosemide and spirono lactone can be an option along with beta-bret or calcium channel bret. _Chronic history of alcohol dependency: Patient drink 4-6 beers on more regular basis watch for any withdrawal symptoms patient is on lorazepam 1 mg twice a day can titrate dose higher and try to use lorazepam on as-needed basis for any alcohol withdrawal watch for any delirium or tremor. CIWA protocol will be done. _Hypertension: Has been on lisinopril 10 mg twice a day continue medication. _Hyperglycemia with no history of type 2 diabetes with the steroid patient blood sugar will be higher. Continue Accu-Chek with sliding scales coverage. _Chronic depression: Has been on Effexor XR 37.5 mg along with trazodone 100 mg daily still on lorazepam as well. _Severe GERD/GI prophylaxis: Will continue on omeprazole 20 mg daily. Discussion: The patient is still hospitalized for COPD exacerbation and respiratory failure at this point given incidental finding of elevated troponin with significant reduction in ejection fraction and cardiac history which patient will have to handle as an outpatient in the meanwhile still on a heavy dose of steroid which through the weekend will be reduced to smaller dose and expected probably to be in the hospital over the weekend till Saturday or Saturday. PHYSICAL EXAMINATION: GENERAL: The patient is A&O x3, NAD HEENT: EOMI, Sclerae anicteric, Moist Mucous membranes Neck: Supple, Non tender, No JVD PULMONARY: Dec breath souds B/L, No wheezing, No crackles. CARDIOVASCULAR: S1, S2 present. No murmurs, rubs, or gallops. ABDOMEN: Soft, nontender, nondistended, normoactive bowel sounds. No guarding or rebound tenderness. MUSCULOSKELETAL: No edema, No cyanosis. No clubbing. Normal ROM. Intact peripheral pulses. EXTREMITIES: No cyanosis, clubbing, or pedal edema. NEUROLOGICAL: CN 2-12 grossly intact. No FND Skin: No Rash REVIEW OF SYSTEMS: CONSTITUTIONAL: No fever or chills. CARDIOVASCULAR: No chest pain, palpitations or syncope. PULMONARY: No shortness of breath, no cough, sore throat. GASTROINTESTINAL: No nausea, vomiting, diarrhea, abdominal pain. : No Dysuria, urgency, frequency. Extremities: No edema. NEUROLOGICAL: No headaches, no weakness, or numbness Dictation was produced using [employer] dictation software. please excuse any g rammatical, word or spelling errors. Objective - Vital Signs Vital signs: Vital Signs Temp 98.1 F 06/27/24 09:00 Pulse 79 06/27/24 14:00 Resp 17 06/27/24 14:00 BP 146/81 06/27/24 11:20 Pulse Ox 96 06/27/24 11:20 FiO2 Intake & Output 06/26/24 06/27/24 06/27/24 18:59 06:59 18:59 Output Total 650 Balance -650 Weight 59.874 kg 61.5 kg 61.5 kg Output: Urine 650 Other: Voiding Method Toilet Toilet Toilet # Voids 0 - Labs CBC & Chem 7: 06/26/24 05:48 06/26/24 05:48 Labs: Abnormal Lab Results - Last 24 Hours (Table) 06/27/24 06/27/24 Range/Units 06:08 11:36 POC Glucose (mg/dL) 153 H 137 H (70-110) mg/dL Microbiology - Last 24 Hours (Table) 06/24/24 18:26 Gram Stain - Final Sputum Sputum Culture - Final 06/24/24 13:00 Blood Culture - Preliminary Blood
[2024-06-27 20:03] LABS: Glucose,Whole Blood 136 mg/dL (70-110)
[2024-06-28 06:06] LABS: Glucose,Whole Blood 132 mg/dL (70-110)
--- NOTE | 2024-06-28 09:29 | P.PN ---
Subjective Progress Note Date: 06/28/24 June 27, 2024 The patient was seen and evaluated this morning with he is feeling better with the shortness of breath has improved. No symptoms of chest pain or chest discomfort. On examination the wheezing has improved significantly with stable vital signs and regular rate and rhythm and no edema was noted in the lower extremities June 28, 2024 The patient was seen and evaluated this morning. He continues to have shortness of breath and wheezing. No pain in the chest. The blood pressure is elevated and consistent with stage II hypertension which is likely secondary to using steroids. I am going to start the patient on amlodipine at 2.5 mg p.o. daily with lisinopril was stopped yesterday because of hyperkalemia. The physical examination is remarkable for regular rhythm with distant heart sounds and bilateral expiratory wheezing and no edema was noted in the lower extremities Assessment Acute hypoxic respiratory failure COPD exacerbation Pneumonia Mild cardiomyopathy Evidence of myocardial injury with no evidence of ischemia Plan Continue the current medical regimen Continue the current dose of aspirin and statin Start the patient on amlodipine Follow-up with the patient Objective - Vital Signs Vital signs: Vital Signs Temp 98.1 F 06/27/24 09:00 Pulse 80 06/28/24 08:37 Resp 20 06/28/24 04:00 BP 166/90 06/28/24 04:00 Pulse Ox 94 L 06/28/24 08:29 FiO2 Intake & Output 06/27/24 06/28/24 06/28/24 18:59 06:59 18:59 Output Total 800 475 Balance -800 -475 Weight 61.5 kg 61.5 kg Output: Urine 800 475 Other: Voiding Method Toilet Toilet # Voids 1 - Labs CBC & Chem 7: 06/26/24 05:48 06/26/24 05:48 Labs: Abnormal Lab Results - Last 24 Hours (Table) 06/27/24 06/27/24 06/28/24 Range/Units 11:36 20:01 06:05 POC Glucose (mg/dL) 137 H 136 H 132 H (70-110) mg/dL Microbiology - Last 24 Hours (Table) 06/24/24 13:00 Blood Culture - Preliminary Blood 06/24/24 18:26 Gram Stain - Final Sputum Sputum Culture - Final
[2024-06-28] MEDS: amLODIPine 2.5 MG TAB PO SCH (09:33)
[2024-06-28 11:41] LABS: Glucose,Whole Blood 139 mg/dL (70-110)
--- NOTE | 2024-06-28 12:56 | P.PN ---
Subjective Progress Note Date: 06/28/24 Principal diagnosis: Acute exacerbation of COPD with acute on chronic hypoxic respiratory failure Patient is a 68-year-old white male with past medical history significant for CO PD, previous heavy tobacco use, previous pneumonia, chronic left lower lobe scarring, alcoholism, GERD, hypertension, hyperlipidemia. Patient was last seen inpatient back in 2021, he needed pulmonary clearance for an inguinal hernia repair. I do not believe he followed up in the pulmonary office p ostoperatively. He has severe COPD with an FEV1 35% of predicted. Unfamiliar with his home maintenance inhalers. He has home O2 available, but does not routinely use it. He quit smoking cigarettes approximately 6 to 8 months ago, but carries a heavy smoking history. 1 pack/day smoker since he was a teenager. Also drinks alcohol, consumes 3 to 4, 12 ounce beers per day. Denies history of alcohol withdrawal. Denies seizures. Denies esophageal varices. Patient presents to the emergency department yesterday afternoon with a chief complaint of difficulty in breathing. He has had an associated productive cough with green to yellow phlegm. Denies any fevers or chills. Denies any sick contacts. Denies chest pain, hemoptysis. Denies abdominal pain, nausea or vomiting, or diarrhea. Appetite has been poor. Denies weight loss. His primary care provider is Dr. Palacios, no recent treatment with antibiotics. Chest x-ray taken on arrival demonstrates chronic left basilar pleural and parenchymal changes with chronic pleural calcification, however, there is a patchy left basilar opacity that appears increased in density. Patient was covered on empiric antibiotics in the emergency department. Viral screen negative for influenza, RSV, COVID. CBC: WBC count 12.4, hemoglobin 14.2, hematocrit 43.4, platelets 429. CMP: Sodium 130, potassium 6.1, chloride 95, serum bicarb 23, BUN 34, creatinine 0.84, glucose 126. LFTs unremarkable. Lactic 1.7. Troponin is mildly elevated at 0.07, 0.067, and 0.6 respectively. EKG shows normal sinus rhythm without any obvious acute ischemic changes. No hyperacute T waves or QRS widening. Patient's lab draw was slightly hemolyzed, and repeat potassium is down to 5.5. States he has had some trouble voiding recently and suprapubic fullness. No documented history BPH. Denies any dysuria, hematuria, suprapubic pain, flank pain. Postvoid residual greater than 500. Patient is going to be straight cath per protocol. Patient is currently being evaluated in the emergency department, room 22. He is in no acute distress. Non-toxic appearan ce. He is on 4 l/min nasal cannula. SpO2 is 93%. He is mildly tachypneic breathing in the mid 20s. He is afebrile. Hemodynamics are stable. The patient is seen today June 26, 2024 in follow-up in the emergency department. He is currently resting comfortably on the stretcher. Awake and alert in no acute distress. Feeling a bit better today compared to yesterday. He is maintaining O2 saturations in the 90s on 4 L/min per nasal cannula. Blood cultures revealing no growth thus far. Sputum culture pending. White count 9.1. Hemoglobin 10.9. Platelets 461. Sodium 135. Potassium 5.1. Bicarb 31. BUN 27. Creatinine 0.82. Glucose 145. Calcitonin 0.66. He is continued on Symbicort, DuoNeb and elations, IV Solu-Medrol. Antibiotics in the form of Zosyn and azithromycin. He remains on a heparin drip. Echocardiogram reveals impaired left ventricular systolic function with ejection fraction 45 to 50%. Moderate RV enlargement. Mild pulmonary hypertension. CT scan of the chest revealed pleural-based calcification. Differential diagnosis includes fibrothorax versus inhalation asbestos related disease. Less than 5% loculated tiny left pneumothorax, improved since 2021. COPD with persistent area of consolidation involving the left lower lobe which is peripheral based adjacent to the area of suspected fibrothorax. Findings favor chronic atelectasis over pneumonia. Chronic bronchiolitis. Scattered pulmonary nodules with largest measuring 6 mm in the right lower lobe. The patient is seen today June 27, 2024 in follow-up on the selective care unit. He is currently laying flat in bed. Awake and alert in no acute distress. Maintaining O2 saturations in the 90s on 4 L/min per nasal cannula. Denies any worsening shortness of breath, cough or congestion. Hemodynamically stable. Blood and sputum cultures revealed no growth. Glucose 137. He remains on DuoNeb inhalations, Symbicort, Solu-Medrol. Antibiotics in the form of Zosyn. Patient was seen today on June 28, remains on the stepdown unit, doing well, on 4 L nasal cannula, not in any distress, maintained on bronchodilators in the form of DuoNeb Symbicort and is also on Solu-Medrol as well as Zosyn. Gradually getting better, feeling much better today compared to the last few days, not in any distress. No labs done today except a blood sugar of 136. Objective - Vital Signs Vital signs: Vital Signs Temp 98.2 F 06/28/24 08:55 Pulse 73 06/28/24 12:00 Resp 17 06/28/24 12:00 BP 144/78 06/28/24 12:00 Pulse Ox 95 06/28/24 12:00 FiO2 Intake & Output 06/27/24 06/28/24 06/28/24 18:59 06:59 18:59 Output Total 800 475 350 Balance -800 -475 -350 Weight 61.5 kg 61.5 kg Output: Urine 800 475 350 Other: Voiding Method Toilet Toilet Toilet # Voids 1 - Exam GENERAL EXAM: Reveals 68-year-old in no distress on 3 L nasal cannula with O2 sats of 95% HEAD: Normocephalic and atraumatic EYES: Normal reaction of pupils, equal size. NOSE: Clear with pink turbinates. THROAT: No erythema or exudates. NECK: No masses, no JVD. CHEST: No chest wall deformity. LUNGS: Clear throughout no crackles rhonchi or wheezes CVS: S1 and S2 normal with no audible murmur, regular rhythm. No extra heart sounds ABDOMEN: No hepatosplenomegaly, active bowel sounds, no guarding or rigidity. Suprapubic distention SKIN: No rashes CENTRAL NERVOUS SYSTEM: Alert and oriented x 3 no gross focal deficit EXTREMITIES: No clubbing edema or cyanosis - Labs CBC & Chem 7: 06/26/24 05:48 06/26/24 05:48 Labs: Abnormal Lab Results - Last 24 Hours (Table) 06/27/24 06/28/24 06/28/24 Range/Units 20:01 06:05 11:40 POC Glucose (mg/dL) 136 H 132 H 139 H (70-110) mg/dL Microbiology - Last 24 Hours (Table) 06/24/24 13:00 Blood Culture - Preliminary Blood 06/24/24 18:26 Gram Stain - Final Sputum Sputum Culture - Final Assessment and Plan Assessment: Impression: Acute COPD exacerbation, chest x-ray taken on arrival demonstrates chronic left basilar pleural and parenchymal changes with chronic pleural calcifications Acute on chronic hypoxemic respiratory failure, currently maintained on 4 L/min nasal cannula, secondary to above Elevated troponins, trending down, not consistent with ACS Hyperkalemia, lab draw was slightly hemolyzed, and repeat potassium is down to 5.1 Urinary retention, postvoid residual greater than 500 Hyponatremia, likely secondary to beer potomania Severe chronic obstructive pulmonary disease Chronic hypoxemic respiratory failure, utilizes 2 L as needed basis Former tobacco dependence History of GERD without esophagitis Alcoholism, currently drinks 3-4, 12 ounce beers per day History of hypertension History of hyperlipidemia Recommendation: Continue bronchodilators Continue antibiotics empirically although the findings on that left lower lobe are most likely chronic parenchymal changes and fibrin calcifications Patient will need outpatient follow-up postdischarge in the pulmonary office Consider discharge planning in the next 24 hours Will continue to follow Time with Patient: Less than 30
--- NOTE | 2024-06-28 13:37 | P.PN ---
Subjective Progress Note Date: 06/28/24 Interval History: 68-year-old [address] Palacios's patient with active medical history of advanced COPD chronic history of tobacco use, hypertension, hyperlipidemia, chronic lower back pain, severe GERD, chronic depression, chronic insomnia who was hospitalized last in 2021 for inguinal hernia repair require clearance at the time was in the hospital for few days was supposed to follow-up with pulmonary never did. He presented to the emergency department on 06/24/2024 with complaining of severe dyspnea and shortness of breath with cough excessive wheezing and quite hypoxia was seen and evaluated after couple rounds of updraft treatment with albuterol/ipratropium continue to have significant tight and wheezy with worsening hypoxia with pulse ox running in the 80s. His oxygen level was increased to 3 L at the time patient started on steroid, updraft treatment along with steroid nebulizer chest x-ray showed left lower lobe infiltrate which patient had scar tissue monitor the side but still looks with infection. Lactic acid was 1.7, the emergency room end up putting him on azithromycin and Zosyn be sides Solu-Medrol updraft treatment and Admit patient to the hospital. His troponin was slightly elevated influenza AMB came back negative. 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 Furthermore an echocardiogram and cardiology consultation be done patient probably will have repeat CK troponin x 3. 06/25/2024: He was seen and evaluated by cardiology and pulmonary agree with aggressive management for left-sided pneumonia along with COPD exacerbation with steroids, O2, nebulizer management. Patient is doing slightly better with the current treatment will continue advanced management for now. CT of the chest should be ordered to see element of the scar tissue versus infiltrate or infection versus malignancy was performed which showed pleural-based calcification with different diagnosis differential diagnosis included fibrothorax versus inhalation of asbestos related disease. Also there is consolidation left lower lobe which is peripheral based adjacent to an area of suspected fibrothorax favor this representing chronic atelectasis over pneumonia correlate clinically. Marbin bronchial wall thickening often associated with reactive airway bronchitis or chronic bronchiolitis. Also finding of scattered pulmonary nodular the largest is 6 mm should be follow-up with CAT scan in 6 months. Cardiology had recommended running an echocardiogram sadly came with ejection fraction of 45-50 percentile with left ventricular wall thickening mildly reduced global left ventricular systolic function with right moderate ventricular dilatation generalized right ventricular hypokinesia with mild pulmonary hypertension. With elevated troponin and the current finding with a slight low ejection fraction cardiology recommended to resume home cardiac medication and start patient on heparin drip titrate statin up to 40 mg atorvastatin with aspirin h old beta-bret due to COPD and might recommend further management including heart cath when patient is more stable. 06/26/2024: Patient is not stable medically for any invasive cardiac testing, Troponin has plateau no further increase, was on heparin drip for the last 24 hours which will be probably stopped today. Patient require further workup cardiology diaz as an outpatient when his pulmonary status is more stable to include not limited to heart catheter. Also continue aggressive management pulmonary diaz for his COPD exacerbation and for bronchitis/pneumonia which patient seems to respond slightly better to it continue to be on acute on chronic respiratory failure but slight improvement compared to before. 06/27/2024--patient was seen and examined today. Cardiology following, haresh mmending outpatient follow-up for ischemic workup. Pulmonary following, recommended to continue bronchodilator, steroids, currently on antibiotics Zosyn. Currently on 4 L oxygen. Vital stable, reported feeling better. Blood and sputum cultures no growth so far. No new labs today. 06/28/2024atient currently on 4 L oxygen, feeling better. Not any distress. Remains on DuoNebs Symbicort, Solu-Medrol. On antibiotics Zosyn. Patient reported feeling better as compared to last few days. No labs done today. Pulmonary following. Blood pressure was elevated, started on amlodipine 2.5 mg daily. Lisinopril has been stopped due to hyperkalemia. Assessment and plan: _Acute respiratory failure: Most likely secondary to COPD exacerbation along with pneumonia continue and titrate O2 try to keep his pulse ox above 90 percentile, pulmonary consultation be done, continue steroid use for now if worsening symptoms can use BiPAP. _COPD exacerbation: And history of chronic COPD patient will be on albuterol/ipratropium nebulizer 4 times a day and every 4 hours as needed also is on Symbicort we will continue medication. Was started on Solu-Medrol 125 mg initially and continue at 60 mg every 6 hours. Pulmonary consultation was requested. _Left-sided pneumonia chest x-ray is impressive despite the scarring tissue, patient was started on Zosyn 3.375 g every 8 hours along with azithromycin will continue medication try to obtain sputum culture if possible. _Pulmonary nodular: Multiple require another CAT scan in 6 months. 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 _Chronic history of tobacco dependency which patient had to quit close to 6 months ago does not need any nicotine patch at this point. _Elevated troponin: Seen cardiology with positive result on echocardiogram with significant decrease in ejection fraction along with pulmonary hypertension and hypokinesia of the ventricle wall. Patient was started on heparin drip along with aspirin and higher dose of Lipitor to require further workup including heart catheter as an outpatient. Heparin drip has been stopped. _Cardiomyopathy with significant reduction in ejection fraction, continue current management with medication including BETZY or ARB, diuretics and holding off on beta-bret for now. _Pulmonary hypertension: Most likely due to his COPD mostly and that secondary pulmonary hypertension continue current management with more aggressive management for COPDMedication including diuretics such as furosemide and spirono lactone can be an option along with beta-bret or calcium channel bret. _Chronic history of alcohol dependency: Patient drink 4-6 beers on more regular basis watch for any withdrawal symptoms patient is on lorazepam 1 mg twice a day can titrate dose higher and try to use lorazepam on as-needed basis for any alcohol withdrawal watch for any delirium or tremor. [place] protocol will be done. _Hypertension: Has been on lisinopril 10 mg twice a day --- stopped due to hyperkalemia Hyperkalemia: Hold lisinopril, monitor potassium. _Hyperglycemia with no history of type 2 diabetes with the steroid patient blood sugar will be higher. Continue Accu-Chek with sliding scales coverage. _Chronic depression: Has been on Effexor XR 37.5 mg along with trazodone 100 mg daily still on lorazepam as well. _Severe GERD/GI prophylaxis: Will continue on omeprazole 20 mg daily. Discussion: The patient is still hospitalized for COPD exacerbation and respiratory failure at this point given incidental finding of elevated troponin with significant reduction in ejection fraction and cardiac history which patient will have to handle as an outpatient in the meanwhile still on a heavy dose of steroid which through the weekend will be reduced to smaller dose and expected probably to be in the hospital over the weekend till Saturday or Saturday. PHYSICAL EXAMINATION: GENERAL: The patient is A&O x3, NAD HEENT: EOMI, Sclerae anicteric, Moist Mucous membranes Neck: Supple, Non tender, No JVD PULMONARY: Dec breath souds B/L, No wheezing, No crackles. CARDIOVASCULAR: S1, S2 present. No murmurs, rubs, or gallops. ABDOMEN: Soft, nontender, nondistended, normoactive bowel sounds. No guarding or rebound tenderness. MUSCULOSKELETAL: No edema, No cyanosis. No clubbing. Normal ROM. Intact peripheral pulses. EXTREMITIES: No cyanosis, clubbing, or pedal edema. NEUROLOGICAL: CN 2-12 grossly intact. No FND Skin: No Rash REVIEW OF SYSTEMS: CONSTITUTIONAL: No fever or chills. CARDIOVASCULAR: No chest pain, palpitations or syncope. PULMONARY: Complains of shortness of breath, improving. GASTROINTESTINAL: No nausea, vomiting, diarrhea, abdominal pain. : No Dysuria, urgency, frequency. Extremities: No edema. NEUROLOGICAL: No headaches, no weakness, or numbness Dictation was produced using [employer] dictation software. please excuse any grammatical, word or spelling errors. Objective - Vital Signs Vital signs: Vital Signs Temp 98.2 F 06/28/24 08:55 Pulse 73 06/28/24 12:00 Resp 17 06/28/24 12:00 BP 144/78 06/28/24 12:00 Pulse Ox 95 06/28/24 12:00 FiO2 Intake & Output 06/27/24 06/28/24 06/28/24 18:59 06:59 18:59 Output Total 800 475 350 Balance -800 -475 -350 Weight 61.5 kg 61.5 kg Output: Urine 800 475 350 Other: Voiding Method Toilet Toilet Toilet # Voids 1 - Labs CBC & Chem 7: 06/26/24 05:48 06/26/24 05:48 Labs: Abnormal Lab Results - Last 24 Hours (Table) 06/27/24 06/28/24 06/28/24 Range/Units 20:01 06:05 11:40 POC Glucose (mg/dL) 136 H 132 H 139 H (70-110) mg/dL Microbiology - Last 24 Hours (Table) 06/24/24 13:00 Blood Culture - Preliminary Blood 06/24/24 18:26 Gram Stain - Final Sputum Sputum Culture - Final
[2024-06-28 16:38] LABS: Glucose,Whole Blood 146 mg/dL (70-110)
[2024-06-28 20:02] LABS: Glucose,Whole Blood 138 mg/dL (70-110)
[2024-06-28] MEDS: HEPARIN SODIUM,PORCINE 5,000 UNIT/ML 1 ML VIAL SQ SCH (20:48)
[2024-06-29 06:21] LABS: Glucose,Whole Blood 130 mg/dL (70-110)
[2024-06-29 06:57] LABS: Basophils % (A) 0 %; Eosinophils % (A) 0 %; HCT 38.4 % (39.0-53.0); HGB 12.1 gm/dL (13.0-17.5); Hypochromasia Slight; Lymphocytes # (A) 0.6 k/uL (1.0-4.8); Lymphocytes % (A) 7 %; MCH 30.5 pg (25.0-35.0); MCHC 31.7 g/dL (31.0-37.0); MCV 96.4 fL (80.0-100.0); Mean Platelet Volume 6.7; Monocytes # (A) 0.4 k/uL (0-1.0); Monocytes % (A) 5 %; Neutrophils # (A) 6.9 k/uL (1.3-7.7); Neutrophils % (A) 87 %; Platelet Count 492 k/uL (150-450); RBC 3.98 m/uL (4.30-5.90); RDW 14.3 % (11.5-15.5)
[2024-06-29 07:15] LABS: African American GFR (CKD) >90 (>60 ml/min/1.73 sqM); Anion Gap 0 mmol/L; Blood Urea Nitrogen 23 mg/dL (9-20); Calcium 8.6 mg/dL (8.4-10.2); Carbon Dioxide 36 mmol/L (22-30); Chloride 96 mmol/L (98-107); Glucose 124 mg/dL (74-99); Non-African American GFR(CKD) 89 (>60 ml/min/1.73 sqM); Potassium 5.1 mmol/L (3.5-5.1); Sodium 132 mmol/L (137-145)
[2024-06-29 09:34] VITALS: BP 159/92; RESP 20; TEMP 98.4
[2024-06-29 09:42] VITALS: PULSE 72
[2024-06-29] MEDS: LOSARTAN 25 MG TAB PO SCH (12:18)
--- NOTE | 2024-06-29 12:57 | P.PN ---
Subjective HISTORY OF PRESENT ILLNESS: June 27, 2024 The patient was seen and evaluated this morning with he is feeling better with the shortness of breath has improved. No symptoms of chest pain or chest discomfort. On examination the wheezing has improved significantly with stable vital signs and regular rate and rhythm and no edema was noted in the lower extremities June 28, 2024 The patient was seen and evaluated this morning. He continues to have shortness of breath and wheezing. No pain in the chest. The blood pressure is elevated and consistent with stage II hypertension which is likely secondary to using steroids. I am going to start the patient on amlodipine at 2.5 mg p.o. daily with lisinopril was stopped yesterday because of hyperkalemia. The physical examination is remarkable for regular rhythm with distant heart sounds and bilateral expiratory wheezing and no edema was noted in the lower extremities 06/29/2024 Patient examined this morning at the bedside. Patient currently denies any chest pain or pressure. He denies any shortness of breath. Blood pressures are mildly elevated this morning with a systolic in the [id number]. PHYSICAL EXAM: VITAL SIGNS: Reviewed. GENERAL: Well-developed in no acute distress. NECK: Supple. No JVD or thyromegaly LUNGS: Respirations even and unlabored. Lungs essentially clear to auscultation bilaterally. HEART: Regular rate and rhythm. S1 and S2 heard. EXTREMITIES: Normal range of motion. No clubbing or cyanosis. Peripheral pulses intact. No lower extremity edema ASSESSMENT: Shortness of breath Acute COPD exacerbation Acute hypoxic respiratory failure Elevated troponins, type II OH secondary to oxygen supply/demand mismatch Mild cardiomyopathy, ejection fraction 45 to 50%, ischemic versus nonischemic Mild pulmonary hypertension PLAN: Continue current cardiac medications Recommend adding losartan 25 mg daily. However patient is being discharged home today on his home dose of lisinopril per internal medicine Recommend outpatient stress test Patient to follow-up postdischarge in the office Stable for discharge home today from a cardiac standpoint Nurse practitioner note has been reviewed by physician. Signing provider agrees with the documented findings, assessment, and plan of care documented by HYDROLOGICAL TECHNICAL OFFICER as a scribe. Objective - Vital Signs Vital signs: Vital Signs Temp 98.4 F 06/29/24 09:20 Pulse 72 06/29/24 09:41 Resp 20 06/29/24 09:20 BP 159/92 06/29/24 09:20 Pulse Ox 95 06/29/24 09:20 FiO2 Intake & Output 06/28/24 06/29/24 06/29/24 18:59 06:59 18:59 Output Total 350 200 Balance -350 -200 Weight 61.5 kg Output: Urine 350 200 Other: Voiding Method Toilet Toilet # Voids 450 2 - Labs CBC & Chem 7: 06/29/24 06:24 06/29/24 06:24 Labs: Abnormal Lab Results - Last 24 Hours (Table) 06/28/24 06/28/24 06/29/24 Range/Units 16:34 20:01 06:18 RBC (4.30-5.90) m/uL Hgb (13.0-17.5) gm/dL Hct (39.0-53.0) % Plt Count (150-450) k/uL Lymphocytes # (1.0-4.8) k/uL Sodium (137-145) mmol/L Chloride (98-107) mmol/L Carbon Dioxide (22-30) mmol/L BUN (9-20) mg/dL Glucose (74-99) mg/dL POC Glucose (mg/dL) 146 H 138 H 130 H (70-110) mg/dL 06/29/24 06/29/24 Range/Units 06:24 06:24 RBC 3.98 L (4.30-5.90) m/uL Hgb 12.1 L (13.0-17.5) gm/dL Hct 38.4 L (39.0-53.0) % Plt Count 492 H (150-450) k/uL Lymphocytes # 0.6 L (1.0-4.8) k/uL Sodium 132 L (137-145) mmol/L Chloride 96 L (98-107) mmol/L Carbon Dioxide 36 H (22-30) mmol/L BUN 23 H (9-20) mg/dL Glucose 124 H (74-99) mg/dL POC Glucose (mg/dL) (70-110) mg/dL
--- NOTE | 2024-06-29 13:01 | P.PN ---
Subjective Progress Note Date: 06/29/24 Principal diagnosis: Shortness of breath. Patient is a 68-year-old white male with past medical history significant for COPD, previous heavy tobacco use, previous pneumonia, chronic left lower lobe scarring, alcoholism, GERD, hypertension, hyperlipidemia. Patient was last seen inpatient back in 2021, he needed pulmonary clearance for an inguinal hernia repair. I do not believe he followed up in the pulmonary office postoperatively. He has severe COPD with an FEV1 35% of predicted. Unfamiliar with his home maintenance inhalers. He has home O2 available, but does not ro utinely use it. He quit smoking cigarettes approximately 6 to 8 months ago, but carries a heavy smoking history. 1 pack/day smoker since he was a teenager. Also drinks alcohol, consumes 3 to 4, 12 ounce beers per day. Denies history of alcohol withdrawal. Denies seizures. Denies esophageal varices. Patient presents to the emergency department yesterday afternoon with a chief complaint of difficulty in breathing. He has had an associated productive cough with green to yellow phlegm. Denies any fevers or chills. Denies any sick contacts. Denies chest pain, hemoptysis. Denies abdominal pain, nausea or vomiting, or diarrhea. Appetite has been poor. Denies weight loss. His primary care provider is Dr. Palacios, no recent treatment with antibiotics. Chest x-ray taken on arrival demonstrates chronic left basilar pleural and parenchymal changes with chronic pleural calcification, however, there is a patchy left basilar opacity that appears increased in density. Patient was covered on empiric antibiotics in the emergency department. Viral screen negative for influenza, RSV, COVID. CBC: WBC count 12.4, hemoglobin 14.2, hematocrit 43.4, platelets 429. CMP: Sodium 130, potassium 6.1, chloride 95, serum bicarb 23, BUN 34, creatinine 0.84, glucose 126. LFTs unremarkable. Lactic 1.7. Troponin is mildly elevated at 0.07, 0.067, and 0.6 respectively. EKG shows normal sinus r hythm without any obvious acute ischemic changes. No hyperacute T waves or QRS widening. Patient's lab draw was slightly hemolyzed, and repeat potassium is down to 5.5. States he has had some trouble voiding recently and suprapubic fullness. No documented history BPH. Denies any dysuria, hematuria, suprapubic pain, flank pain. Postvoid residual greater than 500. Patient is going to be straight cath per protocol. Patient is currently being evaluated in the emergency department, room 22. He is in no acute distress. Non-toxic appearance. He is on 4 l/min nasal cannula. SpO2 is 93%. He is mildly tachypneic breathing in the mid 20s. He is afebrile. Hemodynamics are stable. The patient is seen today June 26, 2024 in follow-up in the emergency department. He is currently resting comfortably on the stretcher. Awake and alert in no acute distress. Feeling a bit better today compared to yesterday. He is maintaining O2 saturations in the 90s on 4 L/min per nasal cannula. Blood cultures revealing no growth thus far. Sputum culture pending. White count 9.1. Hemoglobin 10.9. Platelets 461. Sodium 135. Potassium 5.1. Bicarb 31. BUN 27. Creatinine 0.82. Glucose 145. Calcitonin 0.66. He is continued on Symbicort, DuoNeb and elations, IV Solu-Medrol. Antibiotics in the form of Zosyn and azithromycin. He remains on a heparin drip. Echocardiogram reveals impaired left ventricular systolic function with ejection fraction 45 to 50%. Moderate RV enlargement. Mild pulmonary hypertension. CT scan of the chest revealed pleural-based calcification. Differential diagnosis includes fibrothorax versus inhalation asbestos related disease. Less than 5% loculated tiny left pneumothorax, improved since 2021. COPD with persistent area of consolidation involving the left lower lobe which is peripheral based adjacent to the area of suspected fibrothorax. Findings favor chronic atelectasis over pneumonia. Chronic bronchiolitis. Scattered pulmonary nodules with largest measuring 6 mm in the right lower lobe. The patient is seen today June 27, 2024 in follow-up on the selective care unit. He is currently laying flat in bed. Awake and alert in no acute distress. Maintaining O2 saturations in the 90s on 4 L/min per nasal cannula. Denies any worsening shortness of breath, cough or congestion. Hemodynamically stable. Blood and sputum cultures revealed no growth. Glucose 137. He remains on DuoNeb inhalations, Symbicort, Solu-Medrol. Antibiotics in the form of Zosyn. Patient was seen today on June 28, remains on the stepdown unit, doing well, on 4 L nasal cannula, not in any distress, maintained on bronchodilators in the form of DuoNeb Symbicort and is also on Solu-Medrol as well as Zosyn. Gradually getting better, feeling much better today compared to the last few days, not in any distress. No labs done today except a blood sugar of 136. Progress note dated June 29, 2024. 68-year-old male seen today in room 382. He continues on oxygen, by nasal cannula at 3 L. He is not receiving any IV fluids. He continues on Zosyn. His Solu-Medrol will be converted to prednisone. The patient is feeling better. He is much less short of breath. Current laboratory data includes a white count of 8, hemoglobin 12.1, hematocrit 38.4, and platelet count of 492,000. Sodium 132, potassium 5.1, chlorides 96, CO2 36, BUN 23, and creatinine 0.87. Calcium is 8.6. Sputum sampling, and blood cultures are thus far negative or pending. Most recent chest x-ray shows COPD, and chronic interstitial densities. Objective - Vital Signs Vital signs: Vital Signs Temp 98.4 F 06/29/24 09:20 Pulse 72 06/29/24 09:41 Resp 20 06/29/24 09:20 BP 159/92 06/29/24 09:20 Pulse Ox 95 06/29/24 09:20 FiO2 Intake & Output 06/28/24 06/29/24 06/29/24 18:59 06:59 18:59 Output Total 350 200 Balance -350 -200 Weight 61.5 kg Output: Urine 350 200 Other: Voiding Method Toilet Toilet # Voids 450 2 - Exam No acute distress, oriented 3. No audible wheezing. Currently on 3 L. HEENT examination is grossly unremarkable. Mucous membranes are moist. No oral lesions. Neck supple. Full range of motion. No adenopathy thyromegaly or neck vein distention. Cardiovascular examination reveals regular rhythm rate. S1-S2 normal. No S3 or S4. No discernible murmur noted. Lungs reveal scattered mild rhonchi and wheezes. No crackles. Breath sounds equal. Abdomen soft bowel sounds are heard. No masses or tenderness. Extremities are intact. No cyanosis clubbing or edema. Skin is without rash or lesion. Neurologic examination is brief but nonfocal. - Labs CBC & Chem 7: 06/29/24 06:24 06/29/24 06:24 Labs: Abnormal Lab Results - Last 24 Hours (Table) 06/28/24 06/28/24 06/29/24 Range/Units 16:34 20:01 06:18 RBC (4.30-5.90) m/uL Hgb (13.0-17.5) gm/dL Hct (39.0-53.0) % Plt Count (150-450) k/uL Lymphocytes # (1.0-4.8) k/uL Sodium (137-145) mmol/L Chloride (98-107) mmol/L Carbon Dioxide (22-30) mmol/L BUN (9-20) mg/dL Glucose (74-99) mg/dL POC Glucose (mg/dL) 146 H 138 H 130 H (70-110) mg/dL 06/29/24 06/29/24 Range/Units 06:24 06:24 RBC 3.98 L (4.30-5.90) m/uL Hgb 12.1 L (13.0-17.5) gm/dL Hct 38.4 L (39.0-53.0) % Plt Count 492 H (150-450) k/uL Lymphocytes # 0.6 L (1.0-4.8) k/uL Sodium 132 L (137-145) mmol/L Chloride 96 L (98-107) mmol/L Carbon Dioxide 36 H (22-30) mmol/L BUN 23 H (9-20) mg/dL Glucose 124 H (74-99) mg/dL POC Glucose (mg/dL) (70-110) mg/dL Assessment and Plan Assessment: Acute COPD exacerbation, with chronic left basilar pleural and parenchymal changes. Acute on chronic hypoxemic respiratory failure, maintained on home O2. Urinary retention. Hyponatremia. History of severe COPD. Former tobacco dependence. History of gastroesophageal reflux disease without esophagitis. History of chronic alcohol abuse. History of beer potomania. History of hypertension. History of hyperlipidemia. Plan: Plan dated June 29, 2024. The patient continues on IV Zosyn. The patient is not receiving any IV fluids. He continues on oxygen, by nasal cannula at 3 L. Saturations are more than adequate. Solu-Medrol we changed to prednisone, 40 mg a day. It should be taken in the morning with food. Labs, x-rays, and medications are reviewed. Discharge planning underway. The patient is close to being at baseline. Time with Patient: Less than 30
[2024-06-30] MEDS ORDERED: predniSONE 20 MG TAB PO SCH (09:00)
== END 2024-06-29 13:08 | disposition home or self-care (01) | DRG 193 ==
LOC: EC 12:05 → 3SCARD 16:23
PROVIDERS: ADMIT Internal Medicine Geriatric Medicine; ATTEND Internal Medicine Geriatric Medicine
DX: J18.9 Pneumonia, unspecified organism (principal); I21.A1 Myocardial infarction type 2; J96.21 Acute and chronic respiratory failure with hypoxia; J94.8 Other specified pleural conditions; J44.1 Chronic obstructive pulmonary disease with (acute) exacerbation; E87.1 Hypo-osmolality and hyponatremia; I42.9 Cardiomyopathy, unspecified; J93.81 Chronic pneumothorax; J44.0 Chronic obstructive pulmonary disease with (acute) lower respiratory infection; F10.288 Alcohol dependence with other alcohol-induced disorder; I27.20 Pulmonary hypertension, unspecified; Z99.81 Dependence on supplemental oxygen; I11.9 Hypertensive heart disease without heart failure; F32.A Depression, unspecified; F17.210 Nicotine dependence, cigarettes, uncomplicated; E78.5 Hyperlipidemia, unspecified; G89.29 Other chronic pain; M54.50 Low back pain, unspecified; E87.5 Hyperkalemia; K21.9 Gastro-esophageal reflux disease without esophagitis; J94.1 Fibrothorax; F51.04 Psychophysiologic insomnia; R73.9 Hyperglycemia, unspecified; T38.0X5A Adverse effect of glucocorticoids and synthetic analogues, initial encounter; Z77.090 Contact with and (suspected) exposure to asbestos; R33.9 Retention of urine, unspecified; Z87.01 Personal history of pneumonia (recurrent); Z79.899 Other long term (current) drug therapy
CPT/HCPCS: 36415; 71045; 71046; 71260; 80048; 80053; 81001; 83605; 83735; 83880; 84132; 84145; 84484; 85025; 85610; 85730; 87040; 87070; 87205; 87449; 87636; 93005; 93306; 94640; 94760; 96361; 96365; 96367; 96372; 96374; 96376; 99291

== ENCOUNTER 2025-04-28 14:07 | Emergency (ER) | payer MEDICARE ==
[2025-04-28 14:12] VITALS: TEMP 98.1
[2025-04-28 14:51] LABS: Basophils # (A) 0.05 10*3/uL (0.00-0.10); Basophils % (A) 0.6 %; Eosinophils # (A) 0.28 10*3/uL (0.04-0.35); Eosinophils % (A) 3.1 %; HCT 35.8 % (39.6-50.0); HGB 12.5 g/dL (13.0-17.0); Lymphocytes # (A) 1.88 10*3/uL (0.90-5.00); Lymphocytes % (A) 20.8 %; MCH 30.2 pg (27.0-32.0); MCHC 34.9 g/dL (32.0-37.0); MCV 86.5 fL (80.0-97.0); Monocytes # (A) 1.26 10*3/uL (0.20-1.00); Monocytes % (A) 14.0 %; Neutrophils # (A) 5.53 10*3/uL (1.80-7.70); Neutrophils % (A) 61.3 %; Platelet Count 385 10*3/uL (140-440); RBC 4.14 10*6/uL (4.40-5.60); RDW 15.1 % (11.5-14.5); WBC 9.02 10*3/uL (4.50-10.00)
[2025-04-28 15:04] VITALS: RESP 18
[2025-04-28 15:07] LABS: INR 1.0 (<1.2); Partial Thromboplastin Time 26.9 sec (22.0-30.0); Prothrombin Time 11.1 sec (10.0-12.5)
[2025-04-28 15:07] LABS: ALT 15 U/L (4-49); AST 29 U/L (17-59); African American GFR (CKD) >90 (>60 ml/min/1.73 sqM); Albumin 3.8 g/dL (3.5-5.0); Alkaline Phosphatase 148 U/L (38-126); Anion Gap 9 mmol/L; Blood Urea Nitrogen 15 mg/dL (9-20); Calcium 9.4 mg/dL (8.4-10.2); Carbon Dioxide 29 mmol/L (22-30); Chloride 91 mmol/L (98-107); Glucose 114 mg/dL (74-99); Magnesium 1.5 mg/dL (1.6-2.3); Non-African American GFR(CKD) >90 (>60 ml/min/1.73 sqM); Potassium 4.5 mmol/L (3.5-5.1); Sodium 129 mmol/L (137-145); Total Protein 6.5 g/dL (6.3-8.2)
[2025-04-28 15:15] LABS: NT-Pro-B-Type Natriuretic Pept 103 pg/mL
--- NOTE | 2025-04-28 15:17 | XR ---
EXAMINATION TYPE: XR chest 2V DATE OF EXAM: 04/28/2025 2:52 PM COMPARISON: Chest radiographs from 06/25/2024 CLINICAL INDICATION: Male, 69 years old with history of difficulty breathing; [facility] TECHNIQUE: XR chest 2V Frontal and lateral views of the chest. FINDINGS: Lungs/Pleura: Left lower lobe airspace opacities Prominent interstitial lung markings are seen scatte red throughout the lungs with flattening of the diaphragm and increased lucency of the lung apices. N o evidence of focal consolidation, pneumothorax or pleural effusion. Pulmonary vascularity: Unremarkable. Heart/mediastinum: Cardiomediastinal silhouette is unremarkable. Musculoskeletal: No acute osseous pathology. IMPRESSION: Left lower lobe airspace opacities superimposed on COPD correlate for pneumonia. [facility], , 04/28/2025 3:15 PM
[2025-04-28] MEDS: MAGNESIUM SULFATE-D5W PMX 1 GM in DEXTROSE/WATER 1 100ML.BAG IVPB ONE (16:46)
[2025-04-28] MEDS: LEVOFLOXACIN 750 MG TAB PO STA (16:47)
[2025-04-28 16:49] VITALS: BP 161/97; PULSE 92
--- NOTE | 2025-04-28 17:19 | ED ---
SOB HPI - General Chief Complaint: Shortness of Breath Stated Complaint: SARAH BETH Time Seen by Provider: 04/28/25 14:15 Source: patient, EMS Mode of arrival: EMS - History of Present Illness Initial Comments: 69-year-old male with past medical history of COPD on 3 L home O2 who presents to the emergency department with shortness of breath. States has been short of breath for the past week. He does admit to a productive cough that he has been wearing his oxygen without improvement. He has been doing his nebulizer treatments and using his inhalers. He does have sick contacts and has had some chills. Patient was concerned that he may need some antibiotics. He denies any chest pain. No calf pain or swelling. No daily use of steroids. EMS did give him a breathing treatment on the way in. No other alleviating, precipitating roughing factors - Related Data Home Medications Medication Instructions Recorded Confirmed lisinopriL [Zestril] 10 mg PO DAILY 07/28/21 04/28/25 Cyclobenzaprine [Flexeril] 5 mg PO DAILY 06/24/24 04/28/25 Cyclobenzaprine [Flexeril] 10 mg PO HS 06/24/24 04/28/25 LORazepam [Ativan] 0.5 mg PO BID@0900,1400 06/24/24 04/28/25 LORazepam [Ativan] 1 mg PO HS 06/24/24 04/28/25 Omeprazole 20 mg PO DAILY 06/24/24 04/28/25 Atorvastatin [Lipitor] 40 mg PO DAILY 04/28/25 04/28/25 Furosemide [Lasix] 20 mg PO DAILY 04/28/25 04/28/25 Venlafaxine HCl [Effexor] 100 mg PO BID 04/28/25 04/28/25 Previous Rx's Medication Instructions Recorded Levofloxacin [Levaquin] 750 mg PO DAILY 5 Days #5 tab 04/28/25 predniSONE [Deltasone] 20 mg PO BID #10 tab 04/28/25 Allergies Allergy/AdvReac Type Severity Reaction Status Date / Time ceftriaxone Allergy STATES Verified 04/28/25 17:11 "MADE ME VERY SICK" Review of Systems ROS Statement: Those systems with pertinent positive or pertinent negative responses have been documented in the HPI. ROS Other: All systems not noted in ROS Statement are negative. Past Medical History Past Medical History: COPD, GERD/Reflux, Hyperlipidemia, Hypertension Additional Past Medical History / Comment(s): Carpal tunnel syndrome, chronic neck pain related to a work-related injury, History of Any Multi-Drug Resistant Organisms: None Reported Past Surgical History: Hernia Repair Additional Past Surgical History / Comment(s): carpal tunnel BL hands Past Anesthesia/Blood Transfusion Reactions: No Reported Reaction Past Psychological History: Depression Smoking Status: Former smoker - Past Family History Father Family Medical History: No Reported History Mother Family Medical History: No Reported History Brother(s) Family Medical History: Cancer General Exam General appearance: alert, in no apparent distress Head exam: Present: atraumatic, normocephalic, normal inspection Eye exam: Present: normal appearance, PERRL, EOMI. Absent: scleral icterus, conjunctival injection, periorbital swelling ENT exam: Present: normal exam, mucous membranes moist Neck exam: Present: normal inspection. Absent: tenderness, meningismus, lymphadenopathy Respiratory exam: Present: wheezes, other (Coarse breath sounds bilaterally). Absent: respiratory distress, rales, rhonchi, stridor Cardiovascular Exam: Present: regular rate, normal rhythm, normal heart sounds. Absent: systolic murmur, diastolic murmur, rubs, gallop, clicks GI/Abdominal exam: Present: soft, normal bowel sounds. Absent: distended, tenderness, guarding, rebound, rigid Extremities exam: Present: normal inspection, full ROM, normal capillary refill. Absent: tenderness, pedal edema, joint swelling, calf tenderness Back exam: Present: normal inspection Neurological exam: Present: alert, oriented X3, CN II-XII intact Psychiatric exam: Present: normal affect, normal mood Skin exam: Present: warm, dry, intact, normal color. Absent: rash Course Vital Signs 04/28/25 04/28/25 04/28/25 14:10 14:31 15:03 Temperature 98.1 F Pulse Rate 99 98 94 Respiratory 20 20 18 Rate Blood Pressure 184/121 189/131 137/110 O2 Sat by Pulse 95 95 98 Oximetry 04/28/25 04/28/25 15:33 16:48 Temperature Pulse Rate 98 92 Respiratory 18 18 Rate Blood Pressure 162/99 161/97 O2 Sat by Pulse 97 100 Oximetry Medical Decision Making - Medical Decision Making Was pt. sent in by a medical professional or institution (MARIA GUADALUPE Jeorme, [employer], urgent care, hospital, or usp...) When possible be specific @ -No Did you speak to anyone other than the patient for history (EMS, parent, family, police, friend...)? What history was obtained from this source @ -Spoke with EMS for history Did you review nursing and triage notes (agree or disagree)? Why? @ -I reviewed and agree with nursing and triage notes Were old charts reviewed (outside hosp., previous admission, EMS record, old EKG, old radiological studies, urgent care reports/EKG's, usp records)? Report findings @ -No old charts were reviewed Differential Diagnosis (chest pain, altered mental status, abdominal pain women, abdominal pain men, vaginal bleeding, weakness, fever, dyspnea, syncope, headache, dizziness, GI bleed, back pain, seizure, CVA, palpatations, mental health, musculoskeletal)? @ -Differential Dyspnea: Coronary syndrome, arrhythmia, tamponade, asthma, COPD, pulmonary embolism, pneumonia, pneumothorax, pulmonary effusion, anaphylaxis, diabetic ketoacidosis, flailed chest, pulmonary contusion, diaphragmatic rupture, anemia, neuromuscular, this is not meant to be an all-inclusive list. EKG interpreted by me (3pts min.). @ -Yes and demonstrates sinus tachycardia with a rate of 100. ME interval 148. QRS 85. QTc of 378. No acute ST segment elevations or depressions X-rays interpreted by me (1pt min.). @ -Yes which demonstrates pneumonia CT interpreted by me (1pt min.). @ -None done U/S interpreted by me (1pt. min.). @ -None done What testing was considered but not performed or refused? (CT, X-rays, U/S, labs)? Why? @ -None What meds were considered but not given or refused? Why? @ -None Did you discuss the management of the patient with other professionals (professionals i.e. MARIA GUADALUPE Jerome, [employer], lab, RT, psych nurse, social media executive, md senior research scientist, teacher, staff air defense officer, mental health case manager)? Give summary @ -No Was smoking cessation discussed for >3mins.? @ -No Was critical care preformed (if so, how long)? @ -No Were there social determinants of health that impacted care today? How? (Homelessness, low income, unemployed, alcoholism, drug addiction, transportation, low edu. Level, literacy, decrease access to med. care, nursing home, rehab)? @ -No Was there de-escalation of care discussed even if they declined (Discuss DNR or withdrawal of care, Hospice)? DNR status @ -No What co-morbidities impacted this encounter? (DM, HTN, Smoking, COPD, CAD, Cancer, CVA, ARF, Chemo, Hep., AIDS, mental health diagnosis, sleep apnea, morbid obesity)? @ -COPD Was patient admitted / discharged? Hospital course, mention meds given and route , prescriptions, significant lab abnormalities, going to OR and other pertinent info. @ -Upon arrival patient seen and evaluated in bed 15. Thorough history and physical exam was performed. Patient placed on continuous pulse ox and cardiac monitoring. Twelve-lead EKG is obtained. Laboratory studies are conducted. Chest x-ray was performed. I did attempt to replace the patient's magnesium ho wever he wanted to leave in order to get to the pharmacy on time. I did give him a dose of Levaquin in the emergency department as his chest x-ray does demonstrate pneumonia. Patient was also given 125 Solu-Medrol. He will be discharged home on prednisone and Levaquin. Instructed take the medications as directed. Continue all of his breathing treatments and inhalers. Follow-up with his doctor in 2 to 4 days and return for any new or worsening symptoms. Should have a chest x-ray in 6 weeks to ensure improvement in his pneumonia. Patient agreeable to plan was discharged in stable condition Undiagnosed new problem with uncertain prognosis? @ -No Drug Therapy requiring intensive monitoring for toxicity (Heparin, Nitro, Insulin, Cardizem)? @ -No Were any procedures done? @ -No Diagnosis/symptom? @ -Acute respiratory insufficiency, acute pneumonia, acute exacerbation of COPD, hypomagnesemia Acute, or Chronic, or Acute on Chronic? @ -Acute Uncomplicated (without systemic symptoms) or Complicated (systemic symptoms)? @ -Complicated Side effects of treatment? @ -No Exacerbation, Progression, or Severe Exacerbation? @ -No Poses a threat to life or bodily function? How? (Chest pain, [place], [place], pneumonia, PE, COPD, DKA, ARF, appy, cholecystitis, CVA, Diverticulitis, Homicidal, Suicidal, threat to staff... and all critical care pts) @ -No - Lab Data Result diagrams: 04/28/25 14:12 04/28/25 14:35 Lab Results 04/28/25 04/28/25 04/28/25 Range/Units 14:12 14:12 14:12 WBC 9.02 (4.50-10.00) 10*3/uL RBC 4.14 L (4.40-5.60) 10*6/uL Hgb 12.5 L (13.0-17.0) g/dL Hct 35.8 L (39.6-50.0) % MCV 86.5 (80.0-97.0) fL MCH 30.2 (27.0-32.0) pg MCHC 34.9 (32.0-37.0) g/dL Plt Count 385 (140-440) 10*3/uL MPV 8.7 L (9.5-12.2) fL Immature Gran % (Auto) 0.2 % Neutrophils % 61.3 % Lymphocytes % 20.8 % Monocytes % 14.0 % Eosinophils % 3.1 % Basophils % 0.6 % Immature Gran # 0.02 (0.00-0.04) 10*3/uL Neutrophils # 5.53 (1.80-7.70) 10*3/uL Lymphocytes # 1.88 (0.90-5.00) 10*3/uL Monocytes # 1.26 H (0.20-1.00) 10*3/uL Eosinophils # 0.28 (0.04-0.35) 10*3/uL Basophils # 0.05 (0.00-0.10) 10*3/uL PT 11.1 (10.0-12.5) sec INR 1.0 (<1.2) APTT 26.9 (22.0-30.0) sec Sodium (137-145) mmol/L Potassium (3.5-5.1) mmol/L Chloride (98-107) mmol/L Carbon Dioxide (22-30) mmol/L Anion Gap mmol/L BUN (9-20) mg/dL Creatinine (0.66-1.25) mg/dL Est GFR (CKD-EPI)AfAm (>60 ml/min/1.73 sqM) Est GFR (CKD-EPI)NonAf (>60 ml/min/1.73 sqM) Glucose (74-99) mg/dL Plasma Lactic Acid Darren 1.1 (0.7-2.0) mmol/L Calcium (8.4-10.2) mg/dL Magnesium (1.6-2.3) mg/dL Total Bilirubin (0.2-1.3) mg/dL AST (17-59) U/L ALT (4-49) U/L Alkaline Phosphatase (38-126) U/L Troponin I (0.000-0.034) ng/mL NT-Pro-B Natriuret Pep pg/mL Total Protein (6.3-8.2) g/dL Albumin (3.5-5.0) g/dL 04/28/25 04/28/25 Range/Units 14:12 14:35 WBC (4.50-10.00) 10*3/uL RBC (4.40-5.60) 10*6/uL Hgb (13.0-17.0) g/dL Hct (39.6-50.0) % MCV (80.0-97.0) fL MCH (27.0-32.0) pg MCHC (32.0-37.0) g/dL Plt Count (140-440) 10*3/uL MPV (9.5-12.2) fL Immature Gran % (Auto) % Neutrophils % % Lymphocytes % % Monocytes % % Eosinophils % % Basophils % % Immature Gran # (0.00-0.04) 10*3/uL Neutrophils # (1.80-7.70) 10*3/uL Lymphocytes # (0.90-5.00) 10*3/uL Monocytes # (0.20-1.00) 10*3/uL Eosinophils # (0.04-0.35) 10*3/uL Basophils # (0.00-0.10) 10*3/uL PT (10.0-12.5) sec INR (<1.2) APTT (22.0-30.0) sec Sodium 129 L (137-145) mmol/L Potassium 4.5 (3.5-5.1) mmol/L Chloride 91 L (98-107) mmol/L Carbon Dioxide 29 (22-30) mmol/L Anion Gap 9 mmol/L BUN 15 (9-20) mg/dL Creatinine 0.63 L (0.66-1.25) mg/dL Est GFR (CKD-EPI)AfAm >90 (>60 ml/min/1.73 sqM) Est GFR (CKD-EPI)NonAf >90 (>60 ml/min/1.73 sqM) Glucose 114 H (74-99) mg/dL Plasma Lactic Acid Darren (0.7-2.0) mmol/L Calcium 9.4 (8.4-10.2) mg/dL Magnesium 1.5 L (1.6-2.3) mg/dL Total Bilirubin 0.5 (0.2-1.3) mg/dL AST 29 (17-59) U/L ALT 15 (4-49) U/L Alkaline Phosphatase 148 H (38-126) U/L Troponin I <0.012 (0.000-0.034) ng/mL NT-Pro-B Natriuret Pep 103 pg/mL Total Protein 6.5 (6.3-8.2) g/dL Albumin 3.8 (3.5-5.0) g/dL Disposition Clinical Impression: Acute exacerbation of chronic obstructive pulmonary disease, Pneumonia Disposition: HOME SELF-CARE Condition: Stable Instructions (If sedation given, give patient instructions): Bacterial Pneumonia (ED) Additional Instructions: Please use your inhalers as they are instructed. Start the antibiotics and steroids tomorrow as you were given your loading doses in the ER. Follow-up with your doctor. Return for any new or worsening symptoms Prescriptions: predniSONE [Deltasone] 20 mg PO BID #10 tab Levofloxacin [Levaquin] 750 mg PO DAILY 5 Days #5 tab Is patient prescribed a controlled substance at d/c from ED?: No Referrals: Trish Palacios MD [Primary Care Provider] - 1-2 days Time of Disposition: 17:18
[2025-04-28] MEDS: methylPREDNISolone SOD SUCCI 125 MG/2 ML VIAL IV STA (17:22)
== END 2025-04-28 17:39 | disposition home or self-care (01) ==
LOC: EC 14:07
DX: J44.1 Chronic obstructive pulmonary disease with (acute) exacerbation (principal); J18.9 Pneumonia, unspecified organism; Z87.891 Personal history of nicotine dependence; Z88.1 Allergy status to other antibiotic agents
CPT/HCPCS: 36415; 93005; 83880; 80053; 83605; 83735; 84484; 85025; 85610; 85730; 71046; 99285; 96365; J3475

== ENCOUNTER 2025-05-04 12:31 | Inpatient (IN) | payer MEDICARE, OTHER ==
--- NOTE | 2025-05-04 13:00 | ED ---
General Adult HPI - General Chief complaint: Recheck/Abnormal Lab/Rx Stated complaint: Pneumonia Time Seen by Provider: 05/04/25 12:45 Source: patient, RN notes reviewed Mode of arrival: ambulatory Limitations: no limitations - History of Present Illness Initial comments: 69-year-old male with history of COPD presenting to the emergency department for complaints of worsening productive cough, generalized fatigue and weakness. Patient states that he was evaluated in the emergency room on the where he was diagnosed with pneumonia and completed antibiotics consisting of Levaquin and has 1 dose left of his steroids. He states that his symptoms have not been improving as he still experiencing a productive cough, shortness of breath and fatigue. He denies chest pain, fevers, chills, peripheral edema, nausea or vomiting. - Related Data Home Medications Medication Instructions Recorded Confirmed lisinopriL [Zestril] 10 mg PO DAILY 07/28/21 05/04/25 Cyclobenzaprine [Flexeril] 20 mg PO HS 06/24/24 05/04/25 LORazepam [Ativan] 2 mg PO HS 06/24/24 05/04/25 Omeprazole 20 mg PO DAILY 06/24/24 05/04/25 Furosemide [Lasix] 20 mg PO DAILY 04/28/25 05/04/25 Venlafaxine HCl [Effexor] 100 mg PO BID 04/28/25 05/04/25 Aspirin EC [Ecotrin Low Dose] 81 mg PO DAILY 05/04/25 05/04/25 Budesonide/Formoterol Fumarate 2 puff INHALATION RT-BID 05/04/25 05/04/25 [Symbicort 160-4.5 Mcg Inhaler] Allergies Allergy/AdvReac Type Severity Reaction Status Date / Time bee venom protein (honey bee) Allergy Anaphylaxis Verified 05/04/25 13:10 ceftriaxone Allergy STATES Verified 05/04/25 13:10 "MADE ME VERY SICK" Penicillins Allergy Unknown Verified 05/04/25 13:10 Childhood Review of Systems ROS Statement: Those systems with pertinent positive or pertinent negative responses have been documented in the HPI. ROS Other: All systems not noted in ROS Statement are negative. Past Medical History Past Medical History: COPD, GERD/Reflux, Hyperlipidemia, Hypertension Additional Past Medical History / Comment(s): Carpal tunnel syndrome, chronic neck pain related to a work-related injury, History of Any Multi-Drug Resistant Organisms: None Reported Past Surgical History: Hernia Repair Additional Past Surgical History / Comment(s): carpal tunnel BL hands Past Anesthesia/Blood Transfusion Reactions: No Reported Reaction Past Psychological History: Depression Smoking Status: Former smoker Past Alcohol Use History: Daily Past Drug Use History: None Reported - Past Family History Father Family Medical History: No Reported History Mother Family Medical History: No Reported History Brother(s) Family Medical History: Cancer General Exam Limitations: no limitations Neck exam: Present: normal inspection. Absent: tenderness, meningismus, lymphadenopathy Respiratory exam: Present: wheezes, rales, rhonchi, decreased breath sounds. Absent: normal lung sounds bilaterally, respiratory distress, stridor Cardiovascular Exam: Present: regular rate, normal rhythm, normal heart sounds. Absent: systolic murmur, diastolic murmur, rubs, gallop, clicks GI/Abdominal exam: Present: soft, normal bowel sounds. Absent: distended, tenderness, guarding, rebound, rigid Extremities exam: Present: normal inspection, full ROM, normal capillary refill. Absent: tenderness, pedal edema, joint swelling, calf tenderness Back exam: Present: normal inspection Skin exam: Present: warm, dry, intact, normal color. Absent: rash Course Vital Signs 05/04/25 05/04/25 05/04/25 12:38 13:53 14:03 Temperature 98.3 F Pulse Rate 102 H 88 78 Respiratory 20 Rate Blood Pressure 115/69 O2 Sat by Pulse 95 Oximetry 05/04/25 05/04/25 15:00 15:58 Temperature Pulse Rate 93 93 Respiratory 18 18 Rate Blood Pressure 128/99 150/91 O2 Sat by Pulse 95 95 Oximetry Medical Decision Making - Medical Decision Making Was pt. sent in by a medical professional or institution (, [place], [employer], urgent care, hospital, or [facility]...) When possible be specific @ -No Did you speak to anyone other than the patient for history (EMS, parent, family, police, friend...)? What history was obtained from this source @ -No Did you review nursing and triage notes (agree or disagree)? Why? @ -I reviewed and agree with nursing and triage notes Were old charts reviewed (outside hosp., previous admission, EMS record, old EKG, old radiological studies, urgent care reports/EKG's, [facility] records)? Report findings @ -No old charts were reviewed Differential Diagnosis (chest pain, altered mental status, abdominal pain women, abdominal pain men, vaginal bleeding, weakness, fever, dyspnea, syncope, headache, dizziness, GI bleed, back pain, seizure, CVA, palpatations, mental health, musculoskeletal)? @ -Differential Dyspnea: Coronary syndrome, arrhythmia, tamponade, asthma, COPD, pulmonary embolism, pneumonia, pneumothorax, pulmonary effusion, anaphylaxis, diabetic ketoacidosis, flailed chest, pulmonary contusion, diaphragmatic rupture, anemia, jacquelyn romuscular, this is not meant to be an all-inclusive list. EKG interpreted by me (3pts min.). @ -Completed at 1335 sinus rhythm with a ventricular rate of 85, OR interval 171, QRS 90, QT 340, QTc 382. X-rays interpreted by me (1pt min.). @ Chest x-ray reveals COPD with marked emphysema patchy mid and lower lung opacity on the left persists may be slightly increased. CT interpreted by me (1pt min.). @ -None done U/S interpreted by me (1pt. min.). @ -None done What testing was considered but not performed or refused? (CT, X-rays, U/S, labs)? Why? @ -None What meds were considered but not given or refused? Why? @ -None Did you discuss the management of the patient with other professionals (professionals i.e. , PA, C[employer]ET[employer] P[employer]ER, lab, RT, psych nurse, oncology social work, produce department supervisor, teacher, major gifts officer, case filler)? Give summary @ -No Was smoking cessation discussed for >3mins.? @ -No Was critical care preformed (if so, how long)? @ -No Were there social determinants of health that impacted care today? How? (Homelessness, low income, unemployed, alcoholism, drug addiction, t ransportation, low edu. Level, literacy, decrease access to med. care, chcf, rehab)? @ -No Was there de-escalation of care discussed even if they declined (Discuss DNR or withdrawal of care, Hospice)? DNR status @ -No What co-morbidities impacted this encounter? (DM, HTN, Smoking, COPD, CAD, Cancer, CVA, ARF, Chemo, Hep., AIDS, mental health diagnosis, sleep apnea, morbid obesity)? @ -COPD Was patient admitted / discharged? Hospital course, mention meds given and route, prescriptions, significant lab abnormalities, going to OR and other pertinent info. @ -Admitted. 69-year-old male presents emergency room with complaints of worsening productive cough and generalized weakness. Patient noted to have decreased lung signs bilaterally and adventitious sounds. Patient has a leukocytosis of 12. 123, hyponatremia with a sodium of 129 that appears chronic and at baseline. Troponin nonelevated. Chest x-ray concerning for persistent pneumonia. Patient will be admitted with consult placed to pulmonology. He is placed on antibiotics and continued breathing treatments and steroids. Case discussed with my attending Dr. Salinas. Undiagnosed new problem with uncertain prognosis? @ -No Drug Therapy requiring intensive monitoring for toxicity (Heparin, Nitro, Insulin, Cardizem)? @ -No Were any procedures done? @ -No Diagnosis/symptom? @ -Pneumonia Acute, or Chronic, or Acute on Chronic? @ -Acute Uncomplicated (without systemic symptoms) or Complicated (systemic symptoms)? @ -Complicated Side effects of treatment? @ -No Exacerbation, Progression, or Severe Exacerbation? @ -No Poses a threat to life or bodily function? How? (Chest pain, [place], [place], pneumonia, PE, COPD, DKA, ARF, appy, cholecystitis, CVA, Diverticulitis, Homicidal, Suicidal, threat to staff... and all critical care pts) @ -No - Lab Data Result diagrams: 05/04/25 12:17 05/04/25 12:17 Lab Results 05/04/25 05/04/25 05/04/25 Range/Units 12:17 12:17 12:17 WBC 12.13 H (4.50-10.00) 10*3/uL RBC 4.17 L (4.40-5.60) 10*6/uL Hgb 12.6 L (13.0-17.0) g/dL Hct 35.6 L (39.6-50.0) % MCV 85.4 (80.0-97.0) fL MCH 30.2 (27.0-32.0) pg MCHC 35.4 (32.0-37.0) g/dL Plt Count 568 H (140-440) 10*3/uL MPV 8.8 L (9.5-12.2) fL Immature Gran % (Auto) 0.2 % Neutrophils % 60.5 % Lymphocytes % 24.2 % Monocytes % 14.7 % Eosinophils % 0.2 % Basophils % 0.2 % Immature Gran # 0.03 (0.00-0.04) 10*3/uL Neutrophils # 7.33 (1.80-7.70) 10*3/uL Lymphocytes # 2.94 (0.90-5.00) 10*3/uL Monocytes # 1.78 H (0.20-1.00) 10*3/uL Eosinophils # 0.03 L (0.04-0.35) 10*3/uL Basophils # 0.02 (0.00-0.10) 10*3/uL PT 10.9 (10.0-12.5) sec INR 1.0 (<1.2) APTT 22.7 (22.0-30.0) sec Sodium 129 L (137-145) mmol/L Potassium 4.2 (3.5-5.1) mmol/L Chloride 94 L (98-107) mmol/L Carbon Dioxide 27 (22-30) mmol/L Anion Gap 8 mmol/L BUN 26 H (9-20) mg/dL Creatinine 0.79 (0.66-1.25) mg/dL Est GFR (CKD-EPI)AfAm >90 (>60 ml/min/1.73 sqM) Est GFR (CKD-EPI)NonAf >90 (>60 ml/min/1.73 sqM) Glucose 88 (74-99) mg/dL Plasma Lactic Acid Darren (0.7-2.0) mmol/L Calcium 9.6 (8.4-10.2) mg/dL Magnesium 1.4 L (1.6-2.3) mg/dL Total Bilirubin 0.7 (0.2-1.3) mg/dL AST 24 (17-59) U/L ALT 18 (4-49) U/L Alkaline Phosphatase 93 (38-126) U/L Troponin I (0.000-0.034) ng/mL NT-Pro-B Natriuret Pep 256 pg/mL Total Protein 6.3 (6.3-8.2) g/dL Albumin 3.6 (3.5-5.0) g/dL 07/22/25 07/22/25 Range/Units 12:17 12:17 WBC (4.50-10.00) 10*3/uL RBC (4.40-5.60) 10*6/uL Hgb (13.0-17.0) g/dL Hct (39.6-50.0) % MCV (80.0-97.0) fL MCH (27.0-32.0) pg MCHC (32.0-37.0) g/dL Plt Count (140-440) 10*3/uL MPV (9.5-12.2) fL Immature Gran % (Auto) % Neutrophils % % Lymphocytes % % Monocytes % % Eosinophils % % Basophils % % Immature Gran # (0.00-0.04) 10*3/uL Neutrophils # (1.80-7.70) 10*3/uL Lymphocytes # (0.90-5.00) 10*3/uL Monocytes # (0.20-1.00) 10*3/uL Eosinophils # (0.04-0.35) 10*3/uL Basophils # (0.00-0.10) 10*3/uL PT (10.0-12.5) sec INR (<1.2) APTT (22.0-30.0) sec Sodium (137-145) mmol/L Potassium (3.5-5.1) mmol/L Chloride (98-107) mmol/L Carbon Dioxide (22-30) mmol/L Anion Gap mmol/L BUN (9-20) mg/dL Creatinine (0.66-1.25) mg/dL Est GFR (CKD-EPI)AfAm (>60 ml/min/1.73 sqM) Est GFR (CKD-EPI)NonAf (>60 ml/min/1.73 sqM) Glucose (74-99) mg/dL Plasma Lactic Acid Darren 1.7 (0.7-2.0) mmol/L Calcium (8.4-10.2) mg/dL Magnesium (1.6-2.3) mg/dL Total Bilirubin (0.2-1.3) mg/dL AST (17-59) U/L ALT (4-49) U/L Alkaline Phosphatase (38-126) U/L Troponin I <0.012 (0.000-0.034) ng/mL NT-Pro-B Natriuret Pep pg/mL Total Protein (6.3-8.2) g/dL Albumin (3.5-5.0) g/dL Disposition Clinical Impression: Pneumonia, COPD exacerbation Disposition: ADMITTED IP TO THIS HOSP Condition: Stable Referrals: Trish Palacios MD [Primary Care Provider] - 1-2 days Decision to Admit Reason: Admit from EC Decision Date: 05/04/25 Decision Time: 16:15
[2025-05-04 13:33] LABS: Basophils # (A) 0.02 10*3/uL (0.00-0.10); Basophils % (A) 0.2 %; Eosinophils # (A) 0.03 10*3/uL (0.04-0.35); Eosinophils % (A) 0.2 %; HCT 35.6 % (39.6-50.0); HGB 12.6 g/dL (13.0-17.0); Lymphocytes # (A) 2.94 10*3/uL (0.90-5.00); Lymphocytes % (A) 24.2 %; MCH 30.2 pg (27.0-32.0); MCHC 35.4 g/dL (32.0-37.0); MCV 85.4 fL (80.0-97.0); Monocytes # (A) 1.78 10*3/uL (0.20-1.00); Monocytes % (A) 14.7 %; Neutrophils # (A) 7.33 10*3/uL (1.80-7.70); Neutrophils % (A) 60.5 %; Platelet Count 568 10*3/uL (140-440); RBC 4.17 10*6/uL (4.40-5.60); RDW 14.7 % (11.5-14.5); WBC 12.13 10*3/uL (4.50-10.00)
[2025-05-04] MEDS: methylPREDNISolone SOD SUCCI 125 MG/2 ML VIAL IV STA (13:34)
[2025-05-04 13:47] LABS: INR 1.0 (<1.2); Partial Thromboplastin Time 22.7 sec (22.0-30.0); Prothrombin Time 10.9 sec (10.0-12.5)
[2025-05-04 13:52] LABS: ALT 18 U/L (4-49); AST 24 U/L (17-59); African American GFR (CKD) >90 (>60 ml/min/1.73 sqM); Albumin 3.6 g/dL (3.5-5.0); Alkaline Phosphatase 93 U/L (38-126); Anion Gap 8 mmol/L; Blood Urea Nitrogen 26 mg/dL (9-20); Calcium 9.6 mg/dL (8.4-10.2); Carbon Dioxide 27 mmol/L (22-30); Chloride 94 mmol/L (98-107); Glucose 88 mg/dL (74-99); Magnesium 1.4 mg/dL (1.6-2.3); Non-African American GFR(CKD) >90 (>60 ml/min/1.73 sqM); Potassium 4.2 mmol/L (3.5-5.1); Sodium 129 mmol/L (137-145); Total Protein 6.3 g/dL (6.3-8.2)
[2025-05-04] MEDS: IPRATROPIUM-ALBUTEROL 3 ML NEB INHALATION STA (13:52)
[2025-05-04 14:00] LABS: NT-Pro-B-Type Natriuretic Pept 256 pg/mL
[2025-05-04] MEDS: MAGNESIUM OXIDE 400 MG TAB PO STA (14:13)
--- NOTE | 2025-05-04 14:44 | XR ---
EXAMINATION TYPE: XR chest 2V DATE OF EXAM: 05/04/2025 2:21 PM COMPARISON: 04/28/2025 CLINICAL INDICATION: Male, 69 years old with history of difficulty breathing, shortness of breath TECHNIQUE: PA and lateral views FINDINGS: Heart normal size. Aorta and pulmonary vasculature within normal limits. Hyperinflation. Patchy opaci ty along the periphery of the left mid and lower lung slightly increased. No pleural effusion. IMPRESSION: COPD with marked emphysema. Patchy mid and lower lung opacity on the left persists and may be slightl y increased. Underlying pneumonia not excluded. [facility], , 05/04/2025 2:42 PM
[2025-05-04] MEDS ORDERED: NALOXONE 0.4 MG/ML 1 ML VIAL IV PRN (16:20)
[2025-05-04] MEDS: LEVOFLOXACIN 750MG-D5W PMX 750 MG in DEXTROSE/WATER 1 150ML.BAG IVPB STA (16:38)
[2025-05-04] MEDS: AZITHROMYCIN 500 MG in SODIUM CHLORIDE 0.9% 250 ML IVPB SCH (18:17)
[2025-05-04] MEDS: SYMBICORT 160-4.5 MCG INHALER INHALATION SCH (20:45)
[2025-05-04] MEDS: CYCLOBENZAPRINE 10 MG TAB PO SCH (22:14)
[2025-05-04] MEDS: LORazepam 1 MG TAB PO SCH (22:14)
[2025-05-04] MEDS: VENLAFAXINE HCL 50 MG TAB PO SCH (22:15)
--- NOTE | 2025-05-04 23:25 | P.HPIM ---
History of Present Illness H&P Date: 05/04/25 Chief Complaint: Difficulty in breathing Patient is a 69-year-old man with a known history of COPD on home oxygen of 2 L via nasal cannula, chronic CHF with systolic dysfunction ejection fraction 45 to 50%, hypertension, hyperlipidemia, history of alcohol use disorder, depression, prior history of smoking patient presents to ER with complaints of worsening shortness of breath. Patient states that he was recently recently seen in the ER on 04/28/2025, prescribed antibiotic course which he completed yesterday but his symptoms are not resolving and has been worsening since yesterday again. He was on Levaquin and steroid tapering course. Does have cough with whitish to light yellow sputum production. Denied any fever or chills. No complaints of chest pain. Patient is also complaining of generalized weakness and fatigue. No nausea vomiting abdominal pain or diarrhea. Chest x-ray showed COPD with marked emphysema. Patchy mid and lower lung opacity on the left persists and may be slightly increased. Underlying pneumonia not excluded.. EKG showed sinus rhythm with possible old septal [place]. Most recent echocardiogram done on 06/25/2024 showed LVEF 45 to 50% with moderate RV enlargement. Mild pulmonary hypertension. Laboratory data showed WBC 12.1 hemoglobin 12.6 and platelets 568 Sodium 129 potassium 4.2 chloride 94 bicarb is 27 BUN 26 and creatinine 0.79 and blood sugar 88 and magnesium 1.4. Troponin 0.012 and proBNP 256. Review of Systems Constitutional: Patient denies any fever or chills . No generalized weakness or weight loss. Abdomen: Patient denied nausea vomiting and diarrhea and abdominal pain. Cardiovascular: Patient denies any chest pain. Positive for short of breath no palpitations. Respiratory: patient cough with sputum production and shortness of breath Neurologic: Patient denied any numbness or tingling. no headache. Musculoskeletal: Patient denies any complaints of joint swelling or deformity. Skin: Negative Psychiatric: Negative Endocrine: No heat or cold intolerance. No recent weight gain. Genitourinary: No dysuria or hematuria. All other 14 point ROS negative except the above Past Medical History Past Medical History: Heart Failure, COPD, GERD/Reflux, Hyperlipidemia, Hypertension Additional Past Medical History / Comment(s): Carpal tunnel syndrome, chronic neck pain related to a work-related injury, Pt reports [place] unknown date History of Any Multi-Drug Resistant Organisms: None Reported Past Surgical History: Hernia Repair Additional Past Surgical History / Comment(s): carpal tunnel BL hands Past Anesthesia/Blood Transfusion Reactions: No Reported Reaction Past Psychological History: Depression Additional Psychological History / Comment(s): chronic insomnia Smoking Status: Former smoker Past Alcohol Use History: Daily Additional Past Alcohol Use History / Comment(s): pt states he stopped smoking 8 months ago, states he drinks 4-5 beers a day. Patient states last drink was 04/20 Past Drug Use History: None Reported - Past Family History Father Family Medical History: No Reported History Mother Family Medical History: No Reported History Brother(s) Family Medical History: Cancer Medications and Allergies Home Medications Medication Instructions Recorded Confirmed Type lisinopriL [Zestril] 10 mg PO DAILY 07/28/21 05/04/25 History Cyclobenzaprine [Flexeril] 20 mg PO HS 06/24/24 05/04/25 History LORazepam [Ativan] 2 mg PO HS 06/24/24 05/04/25 History Omeprazole 20 mg PO DAILY 06/24/24 05/04/25 History Furosemide [Lasix] 20 mg PO DAILY 04/28/25 05/04/25 History Venlafaxine HCl [Effexor] 100 mg PO BID 04/28/25 05/04/25 History Aspirin EC [Ecotrin Low Dose] 81 mg PO DAILY 05/04/25 05/04/25 History Budesonide/Formoterol Fumarate 2 puff INHALATION RT-BID 05/04/25 05/04/25 History [Symbicort 160-4.5 Mcg Inhaler] Allergies Allergy/AdvReac Type Severity Reaction Status Date / Time bee venom protein (honey bee) Allergy Anaphylaxis Verified 05/04/25 13:10 ceftriaxone Allergy STATES Verified 05/04/25 13:10 "MADE ME VERY SICK" Penicillins Allergy Unknown Verified 05/04/25 13:10 Childhood Physical Exam Vitals: Vital Signs Temp Pulse Pulse Resp BP BP Pulse Ox 05/04/25 20:47 96 05/04/25 19:35 98.8 F 90 18 144/92 96 05/04/25 17:42 93 18 106/90 95 05/04/25 15:58 93 18 150/91 95 05/04/25 15:00 93 18 128/99 95 05/04/25 14:03 78 05/04/25 13:53 88 05/04/25 12:38 98.3 F 102 H 20 115/69 95 Intake and Output 05/04/25 05/04/25 05/05/25 14:59 22:59 06:59 Other: Weight 58.967 kg 60.1 kg PHYSICAL EXAMINATION: Patient is lying in the bed mild distress due to difficulty in breathing. awake alert and oriented.. HEENT: Normocephalic. Neck is supple. Pupils reactive. Nostrils clear. Oral cavity is moist. Neck reveals no JVD, carotid bruits, or thyromegaly. CHEST EXAMINATION: Trachea is central. Symmetrical expansion. Bilateral diffuse wheezing and rhonchi. Nonlabored breathing. CARDIAC: Normal S1, S2 with no gallops. No murmurs ABDOMEN: Soft. Bowel sounds present no organomegaly. No abdominal bruits. Extremities: reveal no edema. No clubbing or cyanosis Neurologically awake, alert, oriented x3 with well-coordinated movements. No focal deficits noted Skin: No rash or skin lesions. Psychiatric: Coperative. Nonsuicidal, anxious. Musculoskeletal: No joint swelling or deformity. Normal range of motion. Results CBC & Chem 7: 05/04/25 12:17 05/04/25 12:17 Labs: Abnormal Lab Results - Last 24 Hours (Table) 05/04/25 05/04/25 Range/Units 12:17 12:17 WBC 12.13 H (4.50-10.00) 10*3/uL RBC 4.17 L (4.40-5.60) 10*6/uL Hgb 12.6 L (13.0-17.0) g/dL Hct 35.6 L (39.6-50.0) % Plt Count 568 H (140-440) 10*3/uL MPV 8.8 L (9.5-12.2) fL Monocytes # 1.78 H (0.20-1.00) 10*3/uL Eosinophils # 0.03 L (0.04-0.35) 10*3/uL Sodium 129 L (137-145) mmol/L Chloride 94 L (98-107) mmol/L BUN 26 H (9-20) mg/dL Magnesium 1.4 L (1.6-2.3) mg/dL Thrombosis Risk Factor Assmnt - DVT/VTE Prophylaxis DVT/VTE Prophylaxis: Pharmacologic Prophylaxis ordered - Choose All That Apply Each Factor Represents 1 point: Abnormal pulmonary function (COPD) Other Risk Factors: Yes Each Risk Factor Represents 2 Points: Age 61-74 years Other congenital or acquired thrombophilia - If yes, enter type in comment: No Thrombosis Risk Factor Assessment Total Risk Factor Score: 3 Thrombosis Risk Factor Assessment Level: Moderate Risk Assessment and Plan Assessment: Worsening shortness of breath secondary to acute COPD exacerbation Possible left lower lung pneumonia Hyponatremia Advanced COPD Chronic hypoxic respiratory failure requiring 2 L oxygen via nasal cannula Chronic CHF with systolic dysfunction ejection fraction 45 to 50% Cardiomyopathy ischemic 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 Patient was given a dose of Levaquin and azithromycin in the ER. Continue with azithromycin and follow- up procalcitonin level. Sputum culture was ordered. Patient was also started on Solu-Medrol 60 mg Q6 hourly along with DuoNebs and Symbicort. Continue with aspirin, lisinopril and other home medications. Follow-up closely. Pulmonary was consulted for evaluation. Patient also needs cardiology evaluation as an outpatient. Prognosis is guarded. Time with Patient: Greater than 30
[2025-05-05] MEDS: methylPREDNISolone SOD SUCCI 125 MG/2 ML VIAL IV SCH (00:35)
[2025-05-05] MEDS: MAGNESIUM SULFATE-D5W PMX 1 GM in DEXTROSE/WATER 1 100ML.BAG IVPB ONE (00:35)
[2025-05-05] MEDS: HEPARIN SODIUM,PORCINE 5,000 UNIT/ML 1 ML VIAL SQ SCH (00:42)
--- NOTE | 2025-05-05 03:33 | P.CNPUL ---
History of Present Illness Consult date: 05/05/25 Requesting physician: Ani Saavedra Reason for consult: pneumonia Chief complaint: Difficulty in breathing History of present illness: Patient is a 69-year-old male with past medical history significant for hypertension, hyperlipidemia, alcoholism, GERD, COPD, previous heavy tobacco use, and previous asbestos exposure. He does follow in the pulmonary office with Dr. Gonzalez. Patient is known to have severe COPD with an FEV1 22% of predicted. He is unfamiliar with his home inhalers. He has home O2 available at home but does not use it. Of note, recent treated in the emergency [facility] on 04/28 for COPD exacerbation/pneumonia with a combination of Levaquin and prednisone. Chest x-ray done at that time showing a chronic left lower lobe airspace opacity. 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 Patient returns to the emergency department yesterday afternoon complaining of increased work of breathing, increased congested cough with sputum hemoptysis mixed with phlegm 1 to 2 weeks ago. Associated weakness and fatigue over the same timeframe. He states he did complete his antibiotics and steroids given previously in the ED. No improvement in his symptoms. Chest x-ray done in the emergency department showing chronic patchy mid and lower lung opacity on the left, otherwise no new focal infiltrates. CBC including a WBC count of 12.13, hemoglobin 12.6, p latelets 568. PT 10.9 INR 1. CMP: Sodium 129, potassium 4.2, chloride 94, serum bicarb 27, BUN 26, creatinine 0.79, glucose 88. Lactic 1.7. Magnesium 1.4. LFTs not elevated. Troponin less than 0.012. NT proBNP 256. Patient previously empirically placed on azithromycin and also received a dose of Levaquin in the ED. Patient currently being evaluated the general medical floor. He is on 2 L/min nasal cannula. In no apparent distress. Endorses above-mentioned symptoms. Increased work of breathing with associated congested cough and white to clear sputum production. Denies any further hemoptysis. Denies any known sick contacts or recent travel. Denies any fevers or chills. Denies any nausea, vomiting, diarrhea. Denies any chest pain, heart palpitations, syncope, lower extremity edema. Vital signs are stable. Review of Systems Constitutional: Reports fatigue, Reports poor appetite, Denies chills, Denies fever, Denies weight gain, Denies weight loss Ears, nose, mouth and throat: Denies headache, Denies nasal congestion, Denies nasal discharge, Denies sinus pain, Denies sinus pressure, Denies sore throat Cardiovascular: Denies chest pain, Denies leg edema, Denies orthopnea, Denies palpitations, Denies paroxysmal nocturnal dyspnea, Denies syncope Respiratory: Reports congestion, Reports cough with sputum, Reports dyspnea, Reports home oxygen, Reports hemoptysis mixed with sputum, Denies pleurisy. Gastrointestinal: Reports loss of appetite, Denies abdominal pain, Denies constipation, Denies diarrhea, Denies nausea, Denies vomiting Genitourinary: Reports urinary retention, Denies dysuria, Denies flank pain, Denies hematuria, Denies urinary frequency Musculoskeletal: Denies arm numbness/tingling, Denies leg numbness/tingling, Denies limitation of motion, Denies myalgias Integumentary: Denies rash Neurological: Denies headaches, Denies seizures, Denies syncope, Denies visual changes Psychiatric: Denies anxiety, Denies depression Past Medical History Past Medical History: Heart Failure, COPD, GERD/Reflux, Hyperlipidemia, Hypertension Additional Past Medical History / Comment(s): Carpal tunnel syndrome, chronic neck pain related to a work-related injury, Pt reports [place] unknown date History of Any Multi-Drug Resistant Organisms: None Reported Past Surgical History: Hernia Repair Additional Past Surgical History / Comment(s): carpal tunnel BL hands Past Anesthesia/Blood Transfusion Reactions: No Reported Reaction Past Psychological History: Depression Additional Psychological History / Comment(s): chronic insomnia Smoking Status: Former smoker Past Alcohol Use History: Daily Additional Past Alcohol Use History / Comment(s): pt states he stopped smoking 8 months ago, states he drinks 4-5 beers a day. Patient states last drink was 04/20 Past Drug Use History: None Reported - Past Family History Father Family Medical History: No Reported History Mother Family Medical History: No Reported History Brother(s) Family Medical History: Cancer Medications and Allergies Home Medications Medication Instructions Recorded Confirmed Type lisinopriL [Zestril] 10 mg PO DAILY 07/28/21 05/04/25 History Cyclobenzaprine [Flexeril] 20 mg PO HS 06/24/24 05/04/25 History LORazepam [Ativan] 2 mg PO HS 06/24/24 05/04/25 History Omeprazole 20 mg PO DAILY 06/24/24 05/04/25 History Furosemide [Lasix] 20 mg PO DAILY 04/28/25 05/04/25 History Venlafaxine HCl [Effexor] 100 mg PO BID 04/28/25 05/04/25 History Aspirin EC [Ecotrin Low Dose] 81 mg PO DAILY 05/04/25 05/04/25 History Budesonide/Formoterol Fumarate 2 puff INHALATION RT-BID 05/04/25 05/04/25 History [Symbicort 160-4.5 Mcg Inhaler] Allergies Allergy/AdvReac Type Severity Reaction Status Date / Time bee venom protein (honey bee) Allergy Anaphylaxis Verified 05/04/25 13:10 ceftriaxone Allergy STATES Verified 05/04/25 13:10 "MADE ME VERY SICK" Penicillins Allergy Unknown Verified 05/04/25 13:10 Childhood Physical Exam Vitals: Vital Signs Temp Pulse Pulse Resp BP BP Pulse Ox 05/05/25 02:00 98.2 F 86 17 134/79 95 05/04/25 20:47 96 05/04/25 19:35 98.8 F 90 18 144/92 96 05/04/25 17:42 93 18 106/90 95 05/04/25 15:58 93 18 150/91 95 05/04/25 15:00 93 18 128/99 95 05/04/25 14:03 78 05/04/25 13:53 88 05/04/25 12:38 98.3 F 102 H 20 115/69 95 Intake and Output 05/04/25 05/04/25 05/05/25 14:59 22:59 06:59 Other: Weight 58.967 kg 60.1 kg GENERAL EXAM: Alert, 69-year-old male, comfortable in no apparent distress. HEAD: Normocephalic and atraumatic EYES: Normal reaction of pupils, equal size. NOSE: Clear with pink turbinates. THROAT: No erythema or exudates. NECK: No masses, no JVD. CHEST: No chest wall deformity. LUNGS: Equal air entry with bibasilar inspiratory crackles. No wheeze, rhonchi or dullness. On 2 L/min nasal cannula. No conversational dyspnea or accessory muscle use.. CVS: S1 and S2 normal with no audible murmur, regular rhythm. No extra heart sounds ABDOMEN: No hepatosplenomegaly, active bowel sounds, no guarding or rigidity. SPINE: No scoliosis or deformity SKIN: No rashes CENTRAL NERVOUS SYSTEM: No focal deficits, tone is normal in all 4 extremities. EXTREMITIES: There is no peripheral edema, clubbing, or cyanosis. Peripheral pulses are intact. Results - Laboratory Findings CBC and BMP: 05/04/25 12:17 05/04/25 12:17 PT/INR, D-dimer PT 10.9 sec (10.0-12.5) 05/04/25 12:17 INR 1.0 (<1.2) 05/04/25 12:17 Abnormal lab findings: Abnormal Labs 05/04/25 05/04/25 12:17 12:17 WBC 12.13 H RBC 4.17 L Hgb 12.6 L Hct 35.6 L Plt Count 568 H MPV 8.8 L Monocytes # 1.78 H Eosinophils # 0.03 L Sodium 129 L Chloride 94 L BUN 26 H Magnesium 1.4 L - Diagnostic Findings Chest x-ray: image reviewed Assessment and Plan Assessment: Acute COPD exacerbation, chest x-ray taken on arrival demonstrates chronic left basilar pleural and parenchymal changes with chronic pleural calcification. Possibility of left lower lobe community-acquired pneumonia felt to be less like Acute on chronic hypoxemic respiratory failure, currently maintained on 2 L/min nasal cannula, secondary to above Acute leukocytosis Hyponatremia, likely secondary to beer potomania Hypomagnesemia, replaced Severe chronic obstructive pulmonary disease, with an FEV1 22% of predicted at baseline History of asbestosis Former tobacco dependence History of GERD without esophagitis Alcoholism, currently drinks 4-7, 12 ounce beers per day, last drink a couple weeks ago History of hypertension History of hyperlipidemia Plan: Patient's medications, labs, chest x-ray were reviewed Patient admitted with a diagnosis of acute COPD exacerbation and possible left lower lobe community-acquired pneumonia. Continue supplemental oxygen to maintain oxygen saturation of 92% or greater Start combination of DuoNebs [id number], Symbicort inhaler, and IV Solu- Medrol 60 mg Q6 Continue empiric antibiotics Obtain sputum culture if possible. Check procalcitonin level. Assess for signs of alcohol withdrawal GI prophylaxis: Protonix DVT prophylaxis: subcutaneous heparin Will continue to follow I have personally seen and examined the patient, performed the documentation and the assessment and plan as written. Number of minutes spent on the visit:20 Time with Patient: Greater than 30
[2025-05-05 07:55] LABS: Basophils # (A) 0 X 10*3/uL (0.00-0.10); Basophils % (A) 0 %; Eosinophils # (A) 0 X 10*3/uL (0.04-0.35); Eosinophils % (A) 0 %; HCT 30.6 % (39.6-50.0); HGB 10.5 g/dL (13.0-17.0); Immature Grans, Automated 0.30 %; Lymphocytes # (A) 0.83 X 10*3/uL (0.90-5.00); Lymphocytes % (A) 11.7 %; MCH 29.5 pg (27.0-32.0); MCHC 34.3 g/dL (32.0-37.0); MCV 86.0 FL (80.0-97.0); Monocytes # (A) 0.25 X 10*3/uL (0.20-1.00); Monocytes % (A) 3.5 %; NRBC Per 100 WBC 0 X 10*3/uL (0.00-0.01); Neutrophils # (A) 6.01 X 10*3/uL (1.80-7.70); Neutrophils % (A) 84.5 %; Platelet Count 529 X 10*3/uL (140-440); RBC 3.56 X 10*6/uL (4.40-5.60); RDW 14.9 % (11.5-14.5); WBC 7.11 X 10*3/uL (4.50-10.00)
[2025-05-05 08:21] LABS: ALT 16 U/L (10-49); AST 17 U/L (14-35); Albumin 3.1 g/dL (3.8-4.9); Albumin/Globulin Ratio 1.55 Ratio (1.60-3.17); Alkaline Phosphatase 80 U/L (41-126); Anion Gap 10.50 mmol/L (4.00-12.00); BUN/Creat Ratio 23.25 Ratio (12.00-20.00); Blood Urea Nitrogen 18.6 mg/dL (9.0-27.0); Calcium 8.8 mg/dL (8.7-10.3); Carbon Dioxide 26.5 mmol/L (21.6-31.8); Chloride 89 mmol/L (96-109); Globulin 2.0 g/dL (1.6-3.3); Glucose 139 mg/dL (70-110); Potassium 4.7 mmol/L (3.5-5.5); Sodium 126 mmol/L (135-145); Total Protein 5.1 g/dL (6.2-8.2)
[2025-05-05] MEDS: IPRATROPIUM-ALBUTEROL 3 ML NEB INHALATION SCH (09:01)
[2025-05-05] MEDS: FUROSEMIDE 20 MG TAB PO SCH (10:05)
[2025-05-05] MEDS: PANTOPRAZOLE 40 MG TABLET PO SCH (10:05)
[2025-05-05] MEDS: ASPIRIN 81 MG PO SCH (10:05)
[2025-05-05] MEDS: ACETAMINOPHEN TAB 325 MG TAB PO PRN (10:10)
[2025-05-05] MEDS: guaiFENesin SYRUP 100MG/5ML 200 MG/10 ML CUP PO PRN (18:33)
[2025-05-06 01:48] LABS: Protein/Creatinine Ratio,Urine 0.114
--- NOTE | 2025-05-06 05:27 | P.PN ---
Subjective Progress Note Date: 05/05/25 Patient is a 69-year-old man with a known history of COPD on home oxygen of 2 L via nasal cannula, chronic CHF with systolic dysfunction ejection fraction 45 to 50%, hypertension, hyperlipidemia, history of alcohol use disorder, depression, prior history of smoking patient presents to ER with complaints of worsening shortness of breath. Patient states that he was recently recently seen in the ER on 04/28/2025, prescribed antibiotic course which he completed yesterday but his symptoms are not resolving and has been worsening since yesterday again. He was on Levaquin and steroid tapering course. Does have cough with whitish to light yellow sputum production. Denied any fever or chills. No complaints of chest pain. Patient is also complaining of generalized weakness and fatigue. No nausea vomiting abdominal pain or diarrhea. Chest x-ray showed COPD with marked emphysema. Patchy mid and lower lung opacity on the left persists and may be slightly increased. Underlying pneumonia not excluded.. EKG showed sinus rhythm with possible old septal [place]. Most recent echocardiogram done on 06/25/2024 showed LVEF 45 to 50% with moderate RV enlargement. Mild pulmonary hypertension. Laboratory data showed WBC 12.1 hemoglobin 12.6 and platelets 568 Sodium 129 potassium 4.2 chloride 94 bicarb is 27 BUN 26 and creatinine 0.79 and blood sugar 88 and magnesium 1.4. Troponin 0.012 and proBNP 256. 05/05/2025 Patient is seen in follow-up today mildly tearful and depressed although denies any suicidal ideation or thoughts of harming himself. Patient reports he has significant lung damage with asbestos and is not getting better and was told by pulmonary he has less than 25% function of his lungs. Patient is currently maintained on 3 L via nasal cannula which he is now wearing outpatient and continued on breathing treatments with also concerns of pneumonia. Suspicion for pneumonia is low and procalcitonin is 0.07. Will continue empiric Zithromax for now. Patient is afebrile with no reports of chest pain or palpitations although continues to report significant shortness of breath and extreme dyspnea with minimal exertion. Patient reports attempting to eat and tolerating some diet although not much of an appetite. Awaiting PT/OT therapy evaluation. Review of systems: Constitutional: No reports of fatigue, fever, or chills Cardiovascular: No reports of chest pain or palpitations Respiratory: reports of continued shortness of breath and extreme dyspnea with exertion. Frequent coughing and bronchospasms GI: No reports of nausea, vomiting, or diarrhea, reports not much of an appetite : No reports of dysuria or retention Neurovascular: No reports of weakness or numbness All medications have been reviewed PHYSICAL EXAMINATION: Patient is a 69-year-old male who is currently sitting up in the bed, well- developed, elderly appearing, thin built, tearful, awake alert and oriented x 3.. HEENT: Normocephalic. Neck is supple. Pupils reactive. Nostrils clear. Oral cav ity is moist. Neck reveals no JVD, carotid bruits, or thyromegaly. CHEST EXAMINATION: Trachea is central. Symmetrical expansion. Bilateral diffuse wheezing and rhonchi. Nonlabored breathing. Nasal cannula noted CARDIAC: Normal S1, S2 with no gallops. No murmurs ABDOMEN: Soft. Thin, bowel sounds present no organomegaly. No abdominal bruits. Extremities: reveal no edema. No clubbing or cyanosis Neurologically awake, alert, oriented x3 with well-coordinated movements. No focal deficits noted Skin: No rash or skin lesions. Psychiatric: Cooperative. Non-suicidal, anxious. Tearful, appears depressed Musculoskeletal: No joint swelling or deformity. Normal range of motion. Assessment: Worsening shortness of breath secondary to acute COPD exacerbation Possible left lower lung pneumonia Hyponatremia Advanced COPD Chronic hypoxic respiratory failure requiring 2 L oxygen via nasal cannula Chronic CHF with systolic dysfunction ejection fraction 45 to 50% Cardiomyopathy ischemic 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 Patient reports he has been wearing this chronically at 3 L. Patient was given a dose of Levaquin and azithromycin in the ER. Continue with azithromycin empirically for now. Procalcitonin was not elevated at 0.07. Sputum culture was ordered and pending at this time. Patient is continued on Solu-Medrol 60 mg Q6 hourly along with DuoNebs and Symbicort. Pulmonary following Home medications reviewed and resumed as appropriate Encouraged increase activity as tolerated as patient is extremely dyspneic requiring multiple breaks and becomes extremely exerted Patient is not ready for discharge as of yet and will await pulmonary clearance to discuss discharge planning Overall prognosis is guarded. The impression and plan of care has been dictated by Emelyn Cole, Nurse Practitioner as directed. Dr. Hermilo MD I have performed a history and examination and MDM of this patient, discussed the same with the dictator, and agree with the dictator's assessment and plan as written ,documented as a scribe. Based on total visit time, I have performed more than 50% of the visit. Objective - Vital Signs Vital signs: Vital Signs Temp 97.6 F 05/06/25 01:08 Pulse 92 05/06/25 01:08 Resp 19 05/06/25 01:08 BP 138/75 05/06/25 01:08 Pulse Ox 95 05/06/25 01:08 FiO2 Intake & Output 05/05/25 05/05/25 05/06/25 06:59 18:59 06:59 Weight 60.1 kg Other: # Voids 2 2 - Labs CBC & Chem 7: 05/05/25 03:29 05/05/25 03:29 Labs: Abnormal Lab Results - Last 24 Hours (Table) 05/05/25 05/05/25 Range/Units 03:29 03:29 RBC 3.56 L (4.40-5.60) X 10*6/uL Hgb 10.5 L (13.0-17.0) g/dL Hct 30.6 L (39.6-50.0) % RDW 14.9 H (11.5-14.5) % Plt Count 529 H (140-440) X 10*3/uL Lymphocytes # 0.83 L (0.90-5.00) X 10*3/uL Eosinophils # 0 L (0.04-0.35) X 10*3/uL Sodium 126 L (135-145) mmol/L Chloride 89 L (96-109) mmol/L BUN/Creatinine Ratio 23.25 H (12.00-20.00) Ratio Glucose 139 H (70-110) mg/dL Total Protein 5.1 L (6.2-8.2) g/dL Albumin 3.1 L (3.8-4.9) g/dL Albumin/Globulin Ratio 1.55 L (1.60-3.17) Ratio Microbiology - Last 24 Hours (Table) 05/05/25 06:52 Gram Stain - Preliminary Sputum
[2025-05-06 07:56] LABS: Basophils # (A) 0.02 X 10*3/uL (0.00-0.10); Basophils % (A) 0.2 %; Eosinophils # (A) 0 X 10*3/uL (0.04-0.35); Eosinophils % (A) 0 %; HCT 29.3 % (39.6-50.0); HGB 10.2 g/dL (13.0-17.0); Immature Grans, Automated 0.40 %; Lymphocytes # (A) 0.90 X 10*3/uL (0.90-5.00); Lymphocytes % (A) 7.6 %; MCH 29.6 pg (27.0-32.0); MCHC 34.8 g/dL (32.0-37.0); MCV 84.9 FL (80.0-97.0); Monocytes # (A) 0.59 X 10*3/uL (0.20-1.00); Monocytes % (A) 5.0 %; NRBC Per 100 WBC 0 X 10*3/uL (0.00-0.01); Neutrophils # (A) 10.33 X 10*3/uL (1.80-7.70); Neutrophils % (A) 86.8 %; Platelet Count 547 X 10*3/uL (140-440); RBC 3.45 X 10*6/uL (4.40-5.60); RDW 14.9 % (11.5-14.5); WBC 11.89 X 10*3/uL (4.50-10.00)
[2025-05-06 08:46] LABS: ALT 17 U/L (10-49); AST 19 U/L (14-35); Albumin 3.2 g/dL (3.8-4.9); Albumin/Globulin Ratio 1.88 Ratio (1.60-3.17); Alkaline Phosphatase 74 U/L (41-126); Anion Gap 11.50 mmol/L (4.00-12.00); BUN/Creat Ratio 21.50 Ratio (12.00-20.00); Blood Urea Nitrogen 17.2 mg/dL (9.0-27.0); Calcium 8.8 mg/dL (8.7-10.3); Carbon Dioxide 25.5 mmol/L (21.6-31.8); Chloride 85 mmol/L (96-109); Globulin 1.7 g/dL (1.6-3.3); Glucose 134 mg/dL (70-110); Magnesium 1.7 mg/dL (1.5-2.4); Potassium 4.5 mmol/L (3.5-5.5); Sodium 122 mmol/L (135-145); Total Protein 4.9 g/dL (6.2-8.2)
--- NOTE | 2025-05-06 12:16 | P.PN ---
Subjective Progress Note Date: 05/06/25 Patient is a 69-year-old male with past medical history significant for hypertension, hyperlipidemia, alcoholism, GERD, COPD, previous heavy tobacco use, and previous asbestos exposure. He does follow in the pulmonary office with Dr. Gonzalez. Patient is known to have severe COPD with an FEV1 22% of predi cted. He is unfamiliar with his home inhalers. He has home O2 available at home but does not use it. Of note, recent treated in the emergency department on 04/28 for COPD exacerbation/pneumonia with a combination of Levaquin and prednisone. Chest x-ray done at that time showing a chronic left lower lobe airspace opacity. 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 Patient returns to the emergency department yesterday afternoon complaining of increased work of breathing, increased congested cough with sputum hemoptysis mixed with phlegm 1 to 2 weeks ago. Associated weakness and fatigue over the same timeframe. He states he did complete his antibiotics and steroids given previously in the ED. No improvement in his symptoms. Chest x-ray done in the emergency department showing chronic patchy mid and lower lung opacity on the left, otherwise no new focal infiltrates. CBC including a WBC count of 12.13, hemoglobin 12.6, platelets 568. PT 10.9 INR 1. CMP: Sodium 129, potassium 4.2, chloride 94, serum bicarb 27, BUN 26, creatinine 0.79, glucose 88. Lactic 1.7. Magnesium 1.4. LFTs not elevated. Troponin less than 0.012. NT proBNP 256. Patient previously empirically placed on azithromycin and also received a dose of Levaquin in the ED. Patient currently being evaluated the general medical floor. He is on 2 L/min nasal cannula. In no apparent distress. Endorses above-mentioned symptoms. Increased work of breathing with associated congested cough and white to clear sputum production. Denies any further hemoptysis. Denies any known sick contacts or recent travel. Denies any fevers or chills. Denies any nausea, vomiting, diarrhea. Denies any chest pain, heart palpitations, syncope, lower extremity edema. Vital signs are stable. The patient is seen today May 06, 2025 in follow-up on the regular medical floor. He is currently awake and alert in no acute distress. Sitting up in a chair at the bedside. Maintaining O2 saturations in the 90s on 2 L/min per nasal cannula. He is still somewhat dyspneic with conversation. Dyspneic with minimal exertion. He remains on DuoNeb inhalations, Symbicort, Solu-Medrol. Heparin for DVT prophylaxis. Effexor and Ativan as needed for anxiety. Remains on oral diuretics. Remains on Robitussin for cough. Sputum culture pending. White count 11.8. Hemoglobin 10.2. Platelets 547. Sodium 122. Potassium 4.5. Bicarb 26. BUN 17. Creatinine 0.8. Glucose 134. Procalcitonin was negative at 0.07. Objective - Vital Signs Vital signs: Vital Signs Temp 98.2 F 05/06/25 07:05 Pulse 94 05/06/25 08:38 Resp 18 05/06/25 07:05 BP 153/91 05/06/25 07:05 Pulse Ox 94 L 05/06/25 07:05 FiO2 Intake & Output 05/05/25 05/06/25 05/06/25 18:59 06:59 18:59 Intake Total 1620 Balance 1620 Weight 60.7 kg Intake: Oral 1620 Other: # Voids 2 5 - Exam GENERAL EXAM: Alert, 69-year-old male, sitting up in a chair, on 2 L nasal cannula, fairly comfortable in no apparent distress. HEAD: Normocephalic and atraumatic EYES: Normal reaction of pupils, equal size. NOSE: Clear with pink turbinates. THROAT: No erythema or exudates. NECK: No masses, no JVD. CHEST: No chest wall deformity. LUNGS: Equal air entry with bibasilar inspiratory crackles. No wheeze, rhonchi or dullness. Dyspnea on exertion. CVS: S1 and S2 normal with no audible murmur, regular rhythm. No extra heart sounds ABDOMEN: No hepatosplenomegaly, active bowel sounds, no guarding or rigidity. SPINE: No scoliosis or deformity SKIN: No rashes CENTRAL NERVOUS SYSTEM: No focal deficits, tone is normal in all 4 extremities. EXTREMITIES: There is no peripheral edema, clubbing, or cyanosis. Peripheral pulses are intact. - Labs CBC & Chem 7: 05/06/25 03:56 05/06/25 03:56 Labs: Abnormal Lab Results - Last 24 Hours (Table) 05/06/25 05/06/25 05/06/25 Range/Units 01:10 03:56 03:56 WBC 11.89 H (4.50-10.00) X 10*3/uL RBC 3.45 L (4.40-5.60) X 10*6/uL Hgb 10.2 L (13.0-17.0) g/dL Hct 29.3 L (39.6-50.0) % RDW 14.9 H (11.5-14.5) % Plt Count 547 H (140-440) X 10*3/uL Immature Gran # 0.05 H (0.00-0.04) X 10*3/uL Neutrophils # 10.33 H (1.80-7.70) X 10*3/uL Eosinophils # 0 L (0.04-0.35) X 10*3/uL Sodium 122 L (135-145) mmol/L Chloride 85 L (96-109) mmol/L BUN/Creatinine Ratio 21.50 H (12.00-20.00) Ratio Glucose 134 H (70-110) mg/dL Total Protein 4.9 L (6.2-8.2) g/dL Albumin 3.2 L (3.8-4.9) g/dL Ur Random Sodium <20 L (40-220) mmol/L Microbiology - Last 24 Hours (Table) 05/05/25 06:52 Gram Stain - Preliminary Sputum Sputum Culture - Preliminary Assessment and Plan Assessment: Acute COPD exacerbation, chest x-ray taken on arrival demonstrates chronic left basilar pleural and parenchymal changes with chronic pleural calcification. Possibility of left lower lobe community-acquired pneumonia felt to be less likely. Procalcitonin was negative at 0.07 Acute on chronic hypoxemic respiratory failure, currently maintained on 2 L/min nasal cannula, secondary to above Acute leukocytosis Hyponatremia, likely secondary to beer potomania Hypomagnesemia, replaced Severe chronic obstructive pulmonary disease, with an FEV1 22% of predicted at baseline History of asbestosis Former tobacco dependence History of GERD without esophagitis Alcoholism, currently drinks 4-7, 12 ounce beers per day, last drink a couple weeks ago History of hypertension History of hyperlipidemia Plan: The patient was seen and evaluated Labs and medications reviewed Remains stable on 2 L nasal cannula Continue DuoNeb inhalations Continue Symbicort Continue Solu-Medrol Heparin for DVT prophylaxis Robitussin as needed Titrate down the FiO2 as tolerated Increase his activity as tolerated We will continue to follow I have personally seen and examined the patient, performed the documentation and the assessment and plan as written. Number of minutes spent on the visit: 10 Dictation was produced using [employer] dictation software. Please excuse any grammatical, word or spelling errors.
[2025-05-06] MEDS ORDERED: LORazepam 1 MG/0.5 ML VIAL IV PRN (13:15)
[2025-05-06] MEDS: THIAMINE 100 MG TAB PO SCH (15:12)
[2025-05-06] MEDS: MULTIVITAMINS, THERA 1 EACH TAB PO SCH (15:12)
[2025-05-06] MEDS: FOLIC ACID 1 MG TAB PO SCH (15:12)
--- NOTE | 2025-05-06 22:32 | P.PN ---
Subjective Progress Note Date: 05/06/25 Patient is a 69-year-old man with a known history of COPD on home oxygen of 2 L via nasal cannula, chronic CHF with systolic dysfunction ejection fraction 45 to 50%, hypertension, hyperlipidemia, history of alcohol use disorder, depression, prior history of smoking patient presents to ER with complaints of worsening shortness of breath. Patient states that he was recently recently seen in the ER on 04/28/2025, prescribed antibiotic course which he completed yesterday but his symptoms are not resolving and has been worsening since yesterday again. He was on Levaquin and steroid tapering course. Does have cough with whitish to light yellow sputum production. Denied any fever or chills. No complaints of chest pain. Patient is also complaining of generalized weakness and fatigue. No nausea vomiting abdominal pain or diarrhea. Chest x-ray showed COPD with marked emphysema. Patchy mid and lower lung opacity on the left persists and may be slightly increased. Underlying pneumonia not excluded.. EKG showed sinus rhythm with possible old septal AK. Most recent echocardiogram done on 06/25/2024 showed LVEF 45 to 50% with moderate RV enlargement. Mild pulmonary hypertension. Laboratory data showed WBC 12.1 hemoglobin 12.6 and platelets 568 Sodium 129 potassium 4.2 chloride 94 bicarb is 27 BUN 26 and creatinine 0.79 and blood sugar 88 and magnesium 1.4. Troponin 0.012 and proBNP 256. 05/05/2025 Patient is seen in follow-up today mildly tearful and depressed although denies any suicidal ideation or thoughts of harming himself. Patient reports he has significant lung damage with asbestos and is not getting better and was told by pulmonary he has less than 25% function of his lungs. Patient is currently maintained on 3 L via nasal cannula which he is now wearing outpatient and continued on breathing treatments with also concerns of pneumonia. Suspicion for pneumonia is low and procalcitonin is 0.07. Will continue empiric Zithromax for now. Patient is afebrile with no reports of chest pain or palpitations although continues to report significant shortness of breath and extreme dyspnea with minimal exertion. Patient reports attempting to eat and tolerating some diet although not much of an appetite. Awaiting PT/OT therapy evaluation. 05/06/2025 Patient is seen in follow-up today continues to be bronchospastic and significantly short of breath doing more of getting up and walking to the bathroom maintained on 2 L currently at 97%. Patient is afebrile and procal citonin is negative. Will continue steroids, clinic breathing treatments with pulmonary following closely. Encouraged to increase activity as tolerated with sitting up in the chair more frequently. Patient does not feel ready for discharge home as he continues to be significantly short of breath with minimal exertion. Awaiting PT/OT therapy evaluation. Review of systems: Constitutional: No reports of fatigue, fever, or chills Cardiovascular: No reports of chest pain or palpitations Respiratory: reports of continued shortness of breath and extreme dyspnea with exertion. Frequent coughing and bronchospasms GI: No reports of nausea, vomiting, or diarrhea, reports not much of an appetite : No reports of dysuria or retention Neurovascular: reports of generalized weakness All medications have been reviewed PHYSICAL EXAMINATION: Patient is a 69-year-old male who is currently sitting at the side of the bed, well-developed, elderly appearing, thin built, tearful, awake alert and oriented x 3.. HEENT: Normocephalic. Neck is supple. Pupils reactive. Nostrils clear. Oral cavity is moist. Neck reveals no JVD, carotid bruits, or thyromegaly. CHEST EXAMINATION: Trachea is central. Symmetrical expansion. Bilateral diffuse wheezing and rhonchi. Nonlabored breathing. Nasal cannula noted CARDIAC: S1, S2 muffled with no gallops. No murmurs ABDOMEN: Soft. Thin, bowel sounds present no organomegaly. No abdominal bruits. Extremities: reveal no edema. No clubbing or cyanosis Neurologically awake, alert, oriented x3 with well-coordinated movements. No focal deficits noted and does not appear to be withdrawing from alcohol Skin: No rash or skin lesions. Psychiatric: Cooperative. Non-suicidal, anxious. Tearful, appears depressed Musculoskeletal: No joint swelling or deformity. Normal range of motion. 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 Patient reports he has been wearing 3 L at home Patient was given a dose of Levaquin and azithromycin in the ER. Continue with azithromycin empirically for now. Procalcitonin was not elevated at 0.07. Sputum culture was ordered and pending at this time. Patient is continued on Solu-Medrol 60 mg Q6 hourly along with DuoNebs and Symbicort. Pulmonary following Home medications reviewed and resumed as appropriate Patient does not appear to be actively withdrawing will add CIWA protocol as needed Encouraged increase activity as tolerated as patient is extremely dyspneic requiring multiple breaks and becomes extremely exerted Patient is not ready for discharge as of yet and will await pulmonary clearance to discuss discharge planning Hyponatremia is significant and 122 today, likely secondary to alcohol use oral intake, will consult nephrology appreciate input and recommendations Overall prognosis is guarded. The impression and plan of care has been dictated by Emelyn Cole, Nurse Practitioner as directed. Dr. Sergio MD I have performed a history and examination and MDM of this patient, discussed the same with the dictator, and agree with the dictator's assessment and plan as written ,documented as a scribe. Based on total visit time, I have performed more than 50% of the visit. Objective - Vital Signs Vital signs: Vital Signs Temp 98.2 F 05/06/25 07:05 Pulse 92 05/06/25 12:29 Resp 18 05/06/25 07:05 BP 153/91 05/06/25 07:05 Pulse Ox 94 L 05/06/25 07:05 FiO2 Intake & Output 05/05/25 05/06/25 05/06/25 18:59 06:59 18:59 Intake Total 1620 Balance 1620 Weight 60.7 kg Intake: Oral 1620 Other: # Voids 2 5 - Labs CBC & Chem 7: 05/06/25 03:56 05/06/25 03:56 Labs: Abnormal Lab Results - Last 24 Hours (Table) 05/06/25 05/06/25 05/06/25 Range/Units 01:10 03:56 03:56 WBC 11.89 H (4.50-10.00) X 10*3/uL RBC 3.45 L (4.40-5.60) X 10*6/uL Hgb 10.2 L (13.0-17.0) g/dL Hct 29.3 L (39.6-50.0) % RDW 14.9 H (11.5-14.5) % Plt Count 547 H (140-440) X 10*3/uL Immature Gran # 0.05 H (0.00-0.04) X 10*3/uL Neutrophils # 10.33 H (1.80-7.70) X 10*3/uL Eosinophils # 0 L (0.04-0.35) X 10*3/uL Sodium 122 L (135-145) mmol/L Chloride 85 L (96-109) mmol/L BUN/Creatinine Ratio 21.50 H (12.00-20.00) Ratio Glucose 134 H (70-110) mg/dL Total Protein 4.9 L (6.2-8.2) g/dL Albumin 3.2 L (3.8-4.9) g/dL Ur Random Sodium <20 L (40-220) mmol/L Microbiology - Last 24 Hours (Table) 05/05/25 06:52 Gram Stain - Preliminary Sputum Sputum Culture - Preliminary
[2025-05-06] MEDS: SODIUM CHLORIDE 0.9% 1,000 ML IV SCH (23:31)
[2025-05-07] MEDS: SODIUM CHLORIDE TAB 1 GM TAB PO STA (06:19)
[2025-05-07] MEDS: ONDANSETRON 4 MG/2 ML VIAL IVP PRN (10:36)
--- NOTE | 2025-05-07 12:49 | P.NPCON ---
History of Present Illness - Reason for Consult hyponatremia - History of Present Illness Patient is 69 year-old with past medical hiostory of HTN and COPD. Patient was admitted to the ER (05/04) for COPD exacerbation, and possible pneumonia. He is on DuoNeb inhalations, Symbicort, Solu-Medrol. Heparin for DVT prophylaxis. Nephrology consulted for Hyponatremia Serum sodium was 129 on admission and subsequently decreased to 122. Patient was maintained on normal saline which was discontinued yesterday. No Significant hypotension was noted on admission No nausea vomiting or diarrhea History of EtOH abuse. Chest x-ray shows left lung infiltrate and possible pneumonia. Patient is seen at bedside today, he is doing good, has no acute complaints. alert and oriented. Denies any chest pain and SOB, Abdominal pain. Past Medical History Past Medical History: Heart Failure, COPD, GERD/Reflux, Hyperlipidemia, Hypertension Additional Past Medical History / Comment(s): Carpal tunnel syndrome, chronic neck pain related to a work-related injury, Pt reports [place] unknown date History of Any Multi-Drug Resistant Organisms: None Reported Past Surgical History: Hernia Repair Additional Past Surgical History / Comment(s): carpal tunnel BL hands Past Anesthesia/Blood Transfusion Reactions: No Reported Reaction Past Psychological History: Depression Additional Psychological History / Comment(s): chronic insomnia Smoking Status: Former smoker Past Alcohol Use History: Daily Additional Past Alcohol Use History / Comment(s): pt states he stopped smoking 8 months ago, states he drinks 4-5 beers a day. Patient states last drink was 04/20 Past Drug Use History: None Reported - Past Family History Father Family Medical History: No Reported History Mother Family Medical History: No Reported History Brother(s) Family Medical History: Cancer Medications and Allergies Home Medications Medication Instructions Recorded Confirmed Type lisinopriL [Zestril] 10 mg PO DAILY 07/28/21 05/04/25 History Cyclobenzaprine [Flexeril] 20 mg PO HS 06/24/24 05/04/25 History LORazepam [Ativan] 2 mg PO HS 06/24/24 05/04/25 History Omeprazole 20 mg PO DAILY 06/24/24 05/04/25 History Furosemide [Lasix] 20 mg PO DAILY 04/28/25 05/04/25 History Venlafaxine HCl [Effexor] 100 mg PO BID 04/28/25 05/04/25 History Aspirin EC [Ecotrin Low Dose] 81 mg PO DAILY 05/04/25 05/04/25 History Budesonide/Formoterol Fumarate 2 puff INHALATION RT-BID 05/04/25 05/04/25 History [Symbicort 160-4.5 Mcg Inhaler] Allergies Allergy/AdvReac Type Severity Reaction Status Date / Time bee venom protein (honey bee) Allergy Anaphylaxis Verified 05/04/25 13:10 ceftriaxone Allergy STATES Verified 05/04/25 13:10 "MADE ME VERY SICK" Penicillins Allergy Unknown Verified 05/04/25 13:10 Childhood Physical Exam Vitals: Vital Signs Temp Pulse Pulse Resp BP Pulse Ox 05/07/25 08:01 98.2 F 95 17 125/68 95 05/07/25 05:45 18 05/07/25 01:20 98 F 83 17 117/70 96 05/06/25 20:36 18 05/06/25 19:30 98.8 F 94 16 137/83 95 05/06/25 16:13 100 05/06/25 15:59 90 05/06/25 13:48 98.1 F 89 18 129/67 97 05/06/25 12:29 92 05/06/25 12:18 96 Intake and Output 05/06/25 05/07/25 05/07/25 22:59 06:59 14:59 Intake Total 1080 Balance 1080 Intake: Oral 1080 Other: # Voids 3 3 Weight 61.9 kg Vital signs reviewed and stable GEN: Healthy appearing, non-toxic, well-developed, NAD. CV: S1/S2 regular, no murmurs. LUNGS: CTAB, ABD: Soft, NT/ND, EXT: No clubbing, cyanosis, or edema. NEURO: grossly intact. Results - Lab Results Most recent lab results Calcium 8.8 mg/dL (8.7-10.3) 05/06/25 03:56 Magnesium 1.7 mg/dL (1.5-2.4) 05/06/25 03:56 Urine Creatinine 70.4 mg/dL 05/06/25 01:10 Urine Total Protein 8.0 mg/dL 05/06/25 01:10 05/06/25 03:56 05/07/25 10:14 Assessment and Plan Assessment: 1. 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 History of EtOH abuse with poor oral intake. Urine osmolarity is 330. Saline has been discontinued. Patient received 1 dose of sodium chloride tab. 2. History of EtOH abuse 3. COPD exacerbation 4. Possible pneumonia with infiltrates noted on the left lung. Plan: Continue off IV fluids Give 1 dose of Lasix 20 mg IV once Repeat sodium in 4 hours Consider Samsca. Add urea Encourage increased oral intake particularly protein. Patient is seen and examined. Agree with resident's findings, assessment and plan. Thank you for the consultation we will follow up with the patient throughout their stay.
[2025-05-07] MEDS: FUROSEMIDE 10 MG/ML 2 ML VIAL IV ONE (13:31)
--- NOTE | 2025-05-07 14:46 | P.PN ---
Subjective Progress Note Date: 05/07/25 Patient is a 69-year-old male with past medical history significant for hypertension, hyperlipidemia, alcoholism, GERD, COPD, previous heavy tobacco use, and previous asbestos exposure. He does follow in the pulmonary office with Dr. Gonzalez. Patient is known to have severe COPD with an FEV1 22% of predi cted. He is unfamiliar with his home inhalers. He has home O2 available at home but does not use it. Of note, recent treated in the emergency department on 04/28 for COPD exacerbation/pneumonia with a combination of Levaquin and prednisone. Chest x-ray done at that time showing a chronic left lower lobe airspace opacity. 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 Patient returns to the emergency department yesterday afternoon complaining of increased work of breathing, increased congested cough with sputum hemoptysis mixed with phlegm 1 to 2 weeks ago. Associated weakness and fatigue over the same timeframe. He states he did complete his antibiotics and steroids given previously in the ED. No improvement in his symptoms. Chest x-ray done in the emergency department showing chronic patchy mid and lower lung opacity on the left, otherwise no new focal infiltrates. CBC including a WBC count of 12.13, hemoglobin 12.6, platelets 568. PT 10.9 INR 1. CMP: Sodium 129, potassium 4.2, chloride 94, serum bicarb 27, BUN 26, creatinine 0.79, glucose 88. Lactic 1.7. Magnesium 1.4. LFTs not elevated. Troponin less than 0.012. NT proBNP 256. Patient previously empirically placed on azithromycin and also received a dose of Levaquin in the ED. Patient currently being evaluated the general medical floor. He is on 2 L/min nasal cannula. In no apparent distress. Endorses above-mentioned symptoms. Increased work of breathing with associated congested cough and white to clear sputum production. Denies any further hemoptysis. Denies any known sick contacts or recent travel. Denies any fevers or chills. Denies any nausea, vomiting, diarrhea. Denies any chest pain, heart palpitations, syncope, lower extremity edema. Vital signs are stable. The patient is seen today May 06, 2025 in follow-up on the regular medical floor. He is currently awake and alert in no acute distress. Sitting up in a chair at the bedside. Maintaining O2 saturations in the 90s on 2 L/min per nasal cannula. He is still somewhat dyspneic with conversation. Dyspneic with minimal exertion. He remains on DuoNeb inhalations, Symbicort, Solu-Medrol. Heparin for DVT prophylaxis. Effexor and Ativan as needed for anxiety. Remains on oral diuretics. Remains on Robitussin for cough. Sputum culture pending. White count 11.8. Hemoglobin 10.2. Platelets 547. Sodium 122. Potassium 4.5. Bicarb 26. BUN 17. Creatinine 0.8. Glucose 134. Procalcitonin was negative at 0.07. The patient is seen today May 07, 2025 in follow-up on the regular medical floor. He is currently resting comfortably in bed. Awake and alert in no acute distress. Still with some dyspnea with conversation. Dyspneic with minimal exertion. He is continued on DuoNeb inhalations, Symbicort, Solu-Medrol. Heparin for DVT prophylaxis. Remains on the CIWA protocol. Sodium was 118. Potassium 4.5. Bicarb 26. BUN 17. Creatinine 0.8. Glucose 134. Urine random sodium was less than 20. White count 11.8. Hemoglobin 10.2. Platelets 547. He did receive a one-time dose of 1 g of sodium chloride tablet early this morning. He had 0.9 normal saline at 75 mL/h. He received Lasix 20 mg IV x 1 today. Nephrology is following. Follow-up sodium at 4 PM today. Objective - Vital Signs Vital signs: Vital Signs Temp 98.2 F 05/07/25 08:01 Pulse 96 05/07/25 11:33 Resp 17 05/07/25 08:01 BP 125/68 05/07/25 08:01 Pulse Ox 95 05/07/25 08:01 FiO2 Intake & Output 05/06/25 05/07/25 05/07/25 18:59 06:59 18:59 Intake Total 1080 Output Total 310 Balance 1080 -310 Weight 61.9 kg Intake: Oral 1080 Output: Urine 310 Post Void Residual 0 Other: # Voids 3 3 - Exam GENERAL EXAM: Alert, anxious 69-year-old male, resting in bed, on 2 L nasal cannula, fairly comfortable in no apparent distress. HEAD: Normocephalic and atraumatic EYES: Normal reaction of pupils, equal size. NOSE: Clear with pink turbinates. THROAT: No erythema or exudates. NECK: No masses, no JVD. CHEST: No chest wall deformity. LUNGS: Equal air entry with bibasilar inspiratory crackles. No wheeze, rhonchi or dullness. Dyspnea on exertion. CVS: S1 and S2 normal with no audible murmur, regular rhythm. No extra heart sounds ABDOMEN: No hepatosplenomegaly, active bowel sounds, no guarding or rigidity. SPINE: No scoliosis or deformity SKIN: No rashes CENTRAL NERVOUS SYSTEM: No focal deficits, tone is normal in all 4 extremities. EXTREMITIES: There is no peripheral edema, clubbing, or cyanosis. Peripheral pulses are intact. - Labs CBC & Chem 7: 05/06/25 03:56 05/07/25 10:14 Labs: Abnormal Lab Results - Last 24 Hours (Table) 05/07/25 05/07/25 Range/Units 04:00 10:14 Sodium 118 L* 118 L* (137-145) mmol/L Microbiology - Last 24 Hours (Table) 05/05/25 06:52 Gram Stain - Final Sputum Sputum Culture - Final Assessment and Plan Assessment: Acute COPD exacerbation, chest x-ray taken on arrival demonstrates chronic left basilar pleural and parenchymal changes with chronic pleural calcification. Possibility of left lower lobe community-acquired pneumonia felt to be less likely. Procalcitonin was negative at 0.07 Acute on chronic hypoxemic respiratory failure, currently maintained on 2 L/min nasal cannula, secondary to above Acute leukocytosis Hyponatremia, likely secondary to beer potomania, possible SIADH Hypomagnesemia, replaced Severe chronic obstructive pulmonary disease, with an FEV1 22% of predicted at baseline History of asbestosis Former tobacco dependence History of GERD without esophagitis Alcoholism, currently drinks 4-7, 12 ounce beers per day, last drink a couple weeks ago History of hypertension History of hyperlipidemia Plan: The patient was seen and evaluated Labs and medications reviewed Sodium remains low at 118 Nephrology consulted Normal saline discontinued Received 1 g of sodium chloride tablet Received Lasix 20 mg IVP x 1 May consider Samsca if no improvement Follow-up sodium level at 4 PM today Remains stable on 2 L nasal cannula Continue DuoNeb inhalations Continue Symbicort Continue Solu-Medrol Heparin for DVT prophylaxis Robitussin as needed Titrate down the FiO2 as tolerated Increase his activity as tolerated We will continue to follow I have personally seen and examined the patient, performed the documentation and the assessment and plan as written. Number of minutes spent on the visit: 10 Dictation was produced using [employer] dictation software. Please excuse any grammatical, word or spelling errors.
[2025-05-07] MEDS: BENZOCAINE/MENTHOL LOZENG 1 EACH LOZENGE MUCOUS MEM PRN (15:04)
--- NOTE | 2025-05-07 17:03 | CDI ---
Documentation Clarification Form Date: 05/06/2025 01:51:00 PM From: Suzanne Benites RN CDIS Phone: [phone] Admit Date: 05/04/2025 04:42:00 PM Patient Name: Laurent Yepez Visit Number: [id number] Discharge Date: ATTENTION: The Clinical Documentation Specialists (CDI) and [facility] Coding Staff appreciate your assistance in clarifying documentation. Please respond to the clarification below the line at the bottom and electronically sign. The CDI & [facility] Coding staff will review the response and follow-up if needed. Please note: Queries are made part of the Legal Health Record. If you have any questions, please contact the author of this message via ITS. Emelyn Cole NP Conflicting documentation has been found in the medical record. As attending physician, please provide clarification. Pulmonology is documenting Acute on chronic hypoxic resp failure on 2l nc 05/06 Medicine is documenting Chronic hypoxic resp failure on 2L nc 05/05 History/Risk Factors: 69 y/o M presents to the ED with shortness of breath. Medical history: chf, chronic hypoxic res failure on 2L oxygen via nasal cannula . advanced copd. 05/04 Clinical Indicators: 05/04 CXR: COPD with marked emphysema. Patchy mid and lower lung opacity on the left persists and may be slightly increased. Underlying pneumonia not excluded. 05/05 VSS: 159/87 94 97.8f oral 97% 2l n Treatment: 2l nc Solumedrol iv q6h Symbicort bid inhalation Please clarify which diagnosis is most appropriate: [x ] Acute on Chronic hypoxic resp failure [ ] Chronic hypoxic resp failure [ ] Other (please specify) [ ] Unable to determine (Template Last Revised: December 2020) MTDD
[2025-05-07] MEDS: TOLVAPTAN 15 MG TABLET PO ONE (18:19)
[2025-05-07] MEDS: UREA 15 GM POWD.PACK PO SCH (18:19)
--- NOTE | 2025-05-08 05:49 | P.PN ---
Subjective Progress Note Date: 05/07/25 Patient is a 69-year-old man with a known history of COPD on home oxygen of 2 L via nasal cannula, chronic CHF with systolic dysfunction ejection fraction 45 to 50%, hypertension, hyperlipidemia, history of alcohol use disorder, depression, prior history of smoking patient presents to ER with complaints of worsening shortness of breath. Patient states that he was recently recently seen in the ER on 04/28/2025, prescribed antibiotic course which he completed yesterday but his symptoms are not resolving and has been worsening since yesterday again. He was on Levaquin and steroid tapering course. Does have cough with whitish to light yellow sputum production. Denied any fever or chills. No complaints of chest pain. Patient is also complaining of generalized weakness and fatigue. No nausea vomiting abdominal pain or diarrhea. Chest x-ray showed COPD with marked emphysema. Patchy mid and lower lung opacity on the left persists and may be slightly increased. Underlying pneumonia not excluded.. EKG showed sinus rhythm with possible old septal FL. Most recent echocardiogram done on 06/25/2024 showed LVEF 45 to 50% with moderate RV enlargement. Mild pulmonary hypertension. Laboratory data showed WBC 12.1 hemoglobin 12.6 and platelets 568 Sodium 129 potassium 4.2 chloride 94 bicarb is 27 BUN 26 and creatinine 0.79 and blood sugar 88 and magnesium 1.4. Troponin 0.012 and proBNP 256. 05/05/2025 Patient is seen in follow-up today mildly tearful and depressed although denies any suicidal ideation or thoughts of harming himself. Patient reports he has significant lung damage with asbestos and is not getting better and was told by pulmonary he has less than 25% function of his lungs. Patient is currently maintained on 3 L via nasal cannula which he is now wearing outpatient and continued on breathing treatments with also concerns of pneumonia. Suspicion for pneumonia is low and procalcitonin is 0.07. Will continue empiric Zithromax for now. Patient is afebrile with no reports of chest pain or palpitations although continues to report significant shortness of breath and extreme dyspnea with minimal exertion. Patient reports attempting to eat and tolerating some diet although not much of an appetite. Awaiting PT/OT therapy evaluation. 05/06/2025 Patient is seen in follow-up today continues to be bronchospastic and significantly short of breath doing more of getting up and walking to the bathroom maintained on 2 L currently at 97%. Patient is afebrile and procal citonin is negative. Will continue steroids, clinic breathing treatments with pulmonary following closely. Encouraged to increase activity as tolerated with sitting up in the chair more frequently. Patient does not feel ready for discharge home as he continues to be significantly short of breath with minimal exertion. Awaiting PT/OT therapy evaluation. 05/07/2025 Patient is seen in follow-up today breathing slightly improved and patient was able to shower on room air briefly and maintaining oxygen saturations. Patient is continued with pulmonary and nephrology following. Sodium is significantly low at 118 and being given some sodium chloride recommending repeat labs and close monitoring. Patient is not eating very well and encouraged oral intake. To continue with CIWA protocol as needed although patient is not actively withdrawing. Patient reports last drink was weeks ago. Encouraged increase activity as tolerated. Gait steady on exam Review of systems: Constitutional: No reports of fatigue, fever, or chills Cardiovascular: No reports of chest pain or palpitations Respiratory: reports of continued shortness of breath and extreme dyspnea with exertion. Frequent coughing and bronchospasms GI: No reports of nausea, vomiting, or diarrhea, reports not much of an appetite : No reports of dysuria or retention Neurovascular: reports of generalized weakness All medications have been reviewed PHYSICAL EXAMINATION: Patient is a 69-year-old male who is currently just getting out of the shower, well-developed, elderly appearing, thin built, awake alert and oriented x 3.. HEENT: Normocephalic. Neck is supple. Pupils reactive. Nostrils clear. Oral cavity is moist. Neck reveals no JVD, carotid bruits, or thyromegaly. CHEST EXAMINATION: Trachea is central. Symmetrical expansion. Bilateral diffuse wheezing and rhonchi. Nonlabored breathing. Nasal cannula noted CARDIAC: S1, S2 muffled ABDOMEN: Soft. Thin, bowel sounds present no organomegaly. No abdominal bruits. Extremities: reveal no edema. No clubbing or cyanosis Neurologically awake, alert, oriented x3 with well-coordinated movements. No focal deficits noted and does not appear to be withdrawing from alcohol Skin: No rash or skin lesions. Psychiatric: Cooperative. Non-suicidal, anxious. appears depressed Musculoskeletal: No joint swelling or deformity. Normal range of motion. Assessment: Worsening shortness of breath secondary to acute COPD exacerbation Possible left lower lung pneumonia, community-acquired, although suspicion is low his procalcitonin is 0.07 Hyponatremia, likely secondary to beer Potomania, worsening and currently 118 Advanced COPD History of hypertension History of hyperlipidemia Acute on chronic chronic hypoxic respiratory failure currently on 2 L oxygen via nasal cannula Chronic CHF with systolic dysfunction ejection fraction 45 to 50%, not in exacerbation Cardiomyopathy ischemic versus nonischemic History of alcohol use disorder and reports his last drink was 04-20-2025 Depression Prior history of smoking DVT prophylaxis with heparin subcu GI prophylaxis Full code Plan: Patient will be continued on oxygen supplementation. Patient reports he has been wearing 3 L at home Patient was given a dose of Levaquin and azithromycin in the ER. Continue with azithromycin empirically for now. Procalcitonin was not elevated at 0.07. Sputum culture was ordered and pending at this time. Patient is continued on Solu-Medrol 60 mg Q6 hourly along with DuoNebs and Symbicort. Pulmonary following Home medications reviewed and resumed as appropriate Patient does not appear to be actively withdrawing will continue CIWA protocol as needed Encouraged increase activity as tolerated as patient is extremely dyspneic requiring multiple breaks and becomes extremely exerted. Patient was to shower briefly today on room air Patient is not ready for discharge as of yet and will await clearance from pulmonary and nephrology Hyponatremia is significantly low and 118 today, likely secondary to alcohol use for oral intake, nephrology following and is being given sodium chloride. Recommend repeat labs Overall prognosis is guarded. The impression and plan of care has been dictated by Emelyn Cole, Nurse Practitioner as directed. Dr. Sergio MD I have performed a history and examination and MDM of this patient, discussed the same with the dictator, and agree with the dictator's assessment and plan as written ,documented as a scribe. Based on total visit time, I have performed more than 50% of the visit. Objective - Vital Signs Vital signs: Vital Signs Temp 97.9 F 05/08/25 01:25 Pulse 90 05/08/25 01:25 Resp 15 05/08/25 01:25 BP 120/67 05/08/25 01:25 Pulse Ox 95 05/08/25 01:25 FiO2 Intake & Output 05/07/25 05/07/25 05/08/25 06:59 18:59 06:59 Intake Total 1080 Output Total 820 Balance 1080 -820 Weight 61.9 kg Intake: Oral 1080 Output: Urine 310 Post Void Residual 510 Other: Voiding Method Urinal # Voids 3 - Labs CBC & Chem 7: 05/06/25 03:56 05/07/25 21:10 Labs: Abnormal Lab Results - Last 24 Hours (Table) 05/07/25 05/07/25 05/07/25 Range/Units 10:14 16:32 21:10 Sodium 118 L* 118 L* 120 L (137-145) mmol/L Microbiology - Last 24 Hours (Table) 05/05/25 06:52 Gram Stain - Final Sputum Sputum Culture - Final
[2025-05-08 10:00] LABS: Basophils # (A) 0.01 X 10*3/uL (0.00-0.10); Basophils % (A) 0.1 %; Eosinophils # (A) 0 X 10*3/uL (0.04-0.35); Eosinophils % (A) 0 %; HCT 31.8 % (39.6-50.0); HGB 11.1 g/dL (13.0-17.0); Immature Grans, Automated 0.60 %; Lymphocytes # (A) 1.01 X 10*3/uL (0.90-5.00); Lymphocytes % (A) 8.2 %; MCH 29.9 pg (27.0-32.0); MCHC 34.9 g/dL (32.0-37.0); MCV 85.7 FL (80.0-97.0); Monocytes # (A) 1.19 X 10*3/uL (0.20-1.00); Monocytes % (A) 9.6 %; NRBC Per 100 WBC 0 X 10*3/uL (0.00-0.01); Neutrophils # (A) 10.06 X 10*3/uL (1.80-7.70); Neutrophils % (A) 81.5 %; Platelet Count 593 X 10*3/uL (140-440); RBC 3.71 X 10*6/uL (4.40-5.60); RDW 15.0 % (11.5-14.5); WBC 12.34 X 10*3/uL (4.50-10.00)
[2025-05-08 10:08] LABS: Anion Gap 10.00 mmol/L (4.00-12.00); BUN/Creat Ratio 32.50 Ratio (12.00-20.00); Blood Urea Nitrogen 32.5 mg/dL (9.0-27.0); Calcium 8.9 mg/dL (8.7-10.3); Carbon Dioxide 27.0 mmol/L (21.6-31.8); Chloride 92 mmol/L (96-109); Glucose 133 mg/dL (70-110); Potassium 4.7 mmol/L (3.5-5.5); Sodium 129 mmol/L (135-145)
--- NOTE | 2025-05-08 11:18 | P.PN ---
Subjective Progress Note Date: 05/08/25 Patient is a 69-year-old male with past medical history significant for hypertension, hyperlipidemia, alcoholism, GERD, COPD, previous heavy tobacco use, and previous asbestos exposure. He does follow in the pulmonary office with Dr. Gonzalez. Patient is known to have severe COPD with an FEV1 22% of predi cted. He is unfamiliar with his home inhalers. He has home O2 available at home but does not use it. Of note, recent treated in the emergency department on 04/28 for COPD exacerbation/pneumonia with a combination of Levaquin and prednisone. Chest x-ray done at that time showing a chronic left lower lobe airspace opacity. 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 Patient returns to the emergency department yesterday afternoon complaining of increased work of breathing, increased congested cough with sputum hemoptysis mixed with phlegm 1 to 2 weeks ago. Associated weakness and fatigue over the same timeframe. He states he did complete his antibiotics and steroids given previously in the ED. No improvement in his symptoms. Chest x-ray done in the emergency department showing chronic patchy mid and lower lung opacity on the left, otherwise no new focal infiltrates. CBC including a WBC count of 12.13, hemoglobin 12.6, platelets 568. PT 10.9 INR 1. CMP: Sodium 129, potassium 4.2, chloride 94, serum bicarb 27, BUN 26, creatinine 0.79, glucose 88. Lactic 1.7. Magnesium 1.4. LFTs not elevated. Troponin less than 0.012. NT proBNP 256. Patient previously empirically placed on azithromycin and also received a dose of Levaquin in the ED. Patient currently being evaluated the general medical floor. He is on 2 L/min nasal cannula. In no apparent distress. Endorses above-mentioned symptoms. Increased work of breathing with associated congested cough and white to clear sputum production. Denies any further hemoptysis. Denies any known sick contacts or recent travel. Denies any fevers or chills. Denies any nausea, vomiting, diarrhea. Denies any chest pain, heart palpitations, syncope, lower extremity edema. Vital signs are stable. The patient is seen today May 06, 2025 in follow-up on the regular medical floor. He is currently awake and alert in no acute distress. Sitting up in a chair at the bedside. Maintaining O2 saturations in the 90s on 2 L/min per nasal cannula. He is still somewhat dyspneic with conversation. Dyspneic with minimal exertion. He remains on DuoNeb inhalations, Symbicort, Solu-Medrol. Heparin for DVT prophylaxis. Effexor and Ativan as needed for anxiety. Remains on oral diuretics. Remains on Robitussin for cough. Sputum culture pending. White count 11.8. Hemoglobin 10.2. Platelets 547. Sodium 122. Potassium 4.5. Bicarb 26. BUN 17. Creatinine 0.8. Glucose 134. Procalcitonin was negative at 0.07. The patient is seen today May 07, 2025 in follow-up on the regular medical floor. He is currently resting comfortably in bed. Awake and alert in no acute distress. Still with some dyspnea with conversation. Dyspneic with minimal exertion. He is continued on DuoNeb inhalations, Symbicort, Solu-Medrol. Heparin for DVT prophylaxis. Remains on the CIWA protocol. Sodium was 118. Potassium 4.5. Bicarb 26. BUN 17. Creatinine 0.8. Glucose 134. Urine random sodium was less than 20. White count 11.8. Hemoglobin 10.2. Platelets 547. He did receive a one-time dose of 1 g of sodium chloride tablet early this morning. He had 0.9 normal saline at 75 mL/h. He received Lasix 20 mg IV x 1 today. Nephrology is following. Follow-up sodium at 4 PM today. The patient is seen today May 08, 2025 in follow-up on the regular medical floor. He is sitting up in bed. Awake and alert in no acute distress. Feeling a bit better today compared to yesterday. Not quite back to his baseline. He is maintaining good O2 saturations in the mid to upper 90s on 2 L/min per nasal cannula. He remains afebrile. Hemodynamically stable. Sputum culture revealed no growth. White count 12.3. Hemoglobin 11.1. Platelets 593. Sodium 129. Potassium 4.7. Bicarb 27. BUN 32. Creatinine 1.0. Glucose 133. He remains on DuoNeb inhalations, Symbicort, Solu-Medrol. Heparin for DVT prophylaxis. Receiving Samsca and Ure-Na per nephrology. Objective - Vital Signs Vital signs: Vital Signs Temp 98.3 F 05/08/25 06:47 Pulse 96 05/08/25 09:47 Resp 18 05/08/25 06:47 BP 123/79 05/08/25 06:47 Pulse Ox 97 05/08/25 09:38 FiO2 Intake & Output 05/07/25 05/08/25 05/08/25 18:59 06:59 18:59 Intake Total 1080 Output Total 820 Balance -820 1080 Weight 59.6 kg Intake: Oral 1080 Output: Urine 310 Post Void Residual 510 Other: Voiding Method Urinal Urinal # Voids 3 - Exam GENERAL EXAM: Alert, 69-year-old male, sitting up in bed, on 2 L nasal cannula, in no apparent distress. HEAD: Normocephalic and atraumatic EYES: Normal reaction of pupils, equal size. NOSE: Clear with pink turbinates. THROAT: No erythema or exudates. NECK: No masses, no JVD. CHEST: No chest wall deformity. LUNGS: Equal air entry with bibasilar inspiratory crackles. No wheeze, rhonchi or dullness. CVS: S1 and S2 normal with no audible murmur, regular rhythm. No extra heart sounds ABDOMEN: No hepatosplenomegaly, active bowel sounds, no guarding or rigidity. SPINE: No scoliosis or deformity SKIN: No rashes CENTRAL NERVOUS SYSTEM: No focal deficits, tone is normal in all 4 extremities. EXTREMITIES: There is no peripheral edema, clubbing, or cyanosis. Peripheral pulses are intact. - Labs CBC & Chem 7: 05/08/25 04:50 05/08/25 04:50 Labs: Abnormal Lab Results - Last 24 Hours (Table) 05/07/25 05/07/25 05/07/25 Range/Units 10:14 16:32 21:10 WBC (4.50-10.00) X 10*3/uL RBC (4.40-5.60) X 10*6/uL Hgb (13.0-17.0) g/dL Hct (39.6-50.0) % RDW (11.5-14.5) % Plt Count (140-440) X 10*3/uL Immature Gran # (0.00-0.04) X 10*3/uL Neutrophils # (1.80-7.70) X 10*3/uL Monocytes # (0.20-1.00) X 10*3/uL Eosinophils # (0.04-0.35) X 10*3/uL Sodium 118 L* 118 L* 120 L (137-145) mmol/L Chloride (96-109) mmol/L BUN (9.0-27.0) mg/dL BUN/Creatinine Ratio (12.00-20.00) Ratio Glucose (70-110) mg/dL 05/08/25 05/08/25 Range/Units 04:50 04:50 WBC 12.34 H (4.50-10.00) X 10*3/uL RBC 3.71 L (4.40-5.60) X 10*6/uL Hgb 11.1 L (13.0-17.0) g/dL Hct 31.8 L (39.6-50.0) % RDW 15.0 H (11.5-14.5) % Plt Count 593 H (140-440) X 10*3/uL Immature Gran # 0.07 H (0.00-0.04) X 10*3/uL Neutrophils # 10.06 H (1.80-7.70) X 10*3/uL Monocytes # 1.19 H (0.20-1.00) X 10*3/uL Eosinophils # 0 L (0.04-0.35) X 10*3/uL Sodium 129 L (137-145) mmol/L Chloride 92 L (96-109) mmol/L BUN 32.5 H (9.0-27.0) mg/dL BUN/Creatinine Ratio 32.50 H (12.00-20.00) Ratio Glucose 133 H (70-110) mg/dL Microbiology - Last 24 Hours (Table) 05/05/25 06:52 Gram Stain - Final Sputum Sputum Culture - Final Assessment and Plan Assessment: Acute COPD exacerbation, chest x-ray taken on arrival demonstrates chronic left basilar pleural and parenchymal changes with chronic pleural calcification. Possibility of left lower lobe community-acquired pneumonia felt to be less likely. Procalcitonin was negative at 0.07 Acute on chronic hypoxemic respiratory failure, currently maintained on 2 L/min nasal cannula, secondary to above Acute leukocytosis Hyponatremia, likely secondary to beer potomania, possible SIADH. Received Samsca and Ure-Na. Current sodium 129 Hypomagnesemia, replaced Severe chronic obstructive pulmonary disease, with an FEV1 22% of predicted at baseline History of asbestosis Former tobacco dependence History of GERD without esophagitis Alcoholism, currently drinks 4-7, 12 ounce beers per day, last drink a couple weeks ago History of hypertension History of hyperlipidemia Plan: The patient was seen and evaluated Labs and medications reviewed Sodium remains low at 129 Received Samsca Currently on Ure-Na Remains stable on 2 L nasal cannula Continue DuoNeb inhalations Continue Symbicort Continue Solu-Medrol Convert to a prednisone taper at discharge Heparin for DVT prophylaxis Robitussin as needed Titrate down the FiO2 as tolerated Increase his activity as tolerated We will continue to follow I have personally seen and examined the patient, performed the documentation and the assessment and plan as written. Number of minutes spent on the visit: 10 Dictation was produced using [employer] dictation software. Please excuse any grammatical, word or spelling errors.
--- NOTE | 2025-05-08 11:20 | P.PN ---
Subjective Progress Note Date: 05/08/25 following for hyponatremia. patient seen today, feeling tired but better overall , sodium level up to 120 last night and 129 this morning s/p IV lasix x1, Tolvaptana nd Urea Objective - Vital Signs Vital signs: Vital Signs Temp 98.3 F 05/08/25 06:47 Pulse 96 05/08/25 09:47 Resp 18 05/08/25 06:47 BP 123/79 05/08/25 06:47 Pulse Ox 97 05/08/25 09:38 FiO2 Intake & Output 05/07/25 05/08/25 05/08/25 18:59 06:59 18:59 Intake Total 1080 Output Total 820 Balance -820 1080 Weight 59.6 kg Intake: Oral 1080 Output: Urine 310 Post Void Residual 510 Other: Voiding Method Urinal Urinal # Voids 3 - Exam GEN: Healthy appearing, non-toxic, well-developed, NAD. CV: S1/S2 regular, no murmurs. LUNGS: CTAB, ABD: Soft, NT/ND, EXT: No clubbing, cyanosis, or edema. NEURO: grossly intact. - Labs CBC & Chem 7: 05/08/25 04:50 05/08/25 04:50 Labs: Abnormal Lab Results - Last 24 Hours (Table) 05/07/25 05/07/25 05/07/25 Range/Units 10:14 16:32 21:10 WBC (4.50-10.00) X 10*3/uL RBC (4.40-5.60) X 10*6/uL Hgb (13.0-17.0) g/dL Hct (39.6-50.0) % RDW (11.5-14.5) % Plt Count (140-440) X 10*3/uL Immature Gran # (0.00-0.04) X 10*3/uL Neutrophils # (1.80-7.70) X 10*3/uL Monocytes # (0.20-1.00) X 10*3/uL Eosinophils # (0.04-0.35) X 10*3/uL Sodium 118 L* 118 L* 120 L (137-145) mmol/L Chloride (96-109) mmol/L BUN (9.0-27.0) mg/dL BUN/Creatinine Ratio (12.00-20.00) Ratio Glucose (70-110) mg/dL 05/08/25 05/08/25 Range/Units 04:50 04:50 WBC 12.34 H (4.50-10.00) X 10*3/uL RBC 3.71 L (4.40-5.60) X 10*6/uL Hgb 11.1 L (13.0-17.0) g/dL Hct 31.8 L (39.6-50.0) % RDW 15.0 H (11.5-14.5) % Plt Count 593 H (140-440) X 10*3/uL Immature Gran # 0.07 H (0.00-0.04) X 10*3/uL Neutrophils # 10.06 H (1.80-7.70) X 10*3/uL Monocytes # 1.19 H (0.20-1.00) X 10*3/uL Eosinophils # 0 L (0.04-0.35) X 10*3/uL Sodium 129 L (137-145) mmol/L Chloride 92 L (96-109) mmol/L BUN 32.5 H (9.0-27.0) mg/dL BUN/Creatinine Ratio 32.50 H (12.00-20.00) Ratio Glucose 133 H (70-110) mg/dL Microbiology - Last 24 Hours (Table) 05/05/25 06:52 Gram Stain - Final Sputum Sputum Culture - Final Assessment and Plan Assessment: 1. 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 History of EtOH abuse with poor oral intake. Urine osmolarity is 330. Saline has been discontinued. Patient received 1 dose of sodium chloride tab. Iv Lasix x1 and Tolvaptan x1 . started on Urea BID 2. History of EtOH abuse 3. COPD exacerbation 4. Possible pneumonia with infiltrates noted on the left lung. Plan: Continue Urea Hold further IV fluids or diuretics. Goal soidum level increase by 66-8 meq in 24 hours. Encourage increased oral intake particularly protein. monitor sodium level BID
[2025-05-08] MEDS: TAMSULOSIN 0.4 MG CAP.ER.24H PO SCH (17:40)
--- NOTE | 2025-05-08 17:40 | CT ---
EXAMINATION TYPE: CT chest wo con DATE OF EXAM: 05/08/2025 5:05 PM COMPARISON: Previous CT chest study 06/25/2024. CLINICAL INDICATION: Male, 69 years old with history of follow up; PHH, abnormal cxr, follow up TECHNIQUE: Multiple axial images were obtained through the chest. Sagittal and coronal reformats were created for review. MIP was performed on a separate workstation. CT DLP: 281.7 mGycm, Automated exposure control for dose reduction was used. FINDINGS: LUNGS/ PLEURA: Persistent pleural calcifications and consolidative changes in the left lower lobe, no t significantly changed from prior study 06/25/2024. Superimposed emphysema also noted. No sizable rig ht-sided pleural effusion. No new pneumothorax. Bronchial wall thickening and mucous plugging, simila r to prior study. Mild left lower lobe bronchiectasis. Pleurodesis material again noted. Tiny pneumot horax within this scarring unchanged. AIRWAY: Patent and unremarkable. HEART: Size within normal limits.Coronary artery calcifications. MEDIASTINUM: No gross evidence of adenopathy. VASCULATURE: No aortic aneurysm. MUSCULOSKELETAL: No acute osseous abnormalities SOFT TISSUES/LYMPH NODES: Unremarkable. LOWER NECK: No significant findings. UPPER ABDOMEN: No significant acute findings. Previous cholecystectomy. IMPRESSION: 1. No acute abnormality in the chest. 2. Chronic findings in the left lung as above, not significantly changed from prior study 06/25/2024. [facility], , 05/08/2025 5:37 PM
[2025-05-08] MEDS: FLUTICASONE NASAL 50MCG/SPRAY 16GM BTL EA NOSTRIL SCH (17:41)
--- NOTE | 2025-05-09 02:46 | PN ---
PROGRESS NOTE DATE OF SERVICE: 05/08/2025 SUBJECTIVE: This is a 69-year-old gentleman who was admitted with COPD exacerbation with possible left lower pneumonia, and also had some pleural calcification also. The patient has severe hyponatremia, which is improving, and the family is concerned. PAST MEDICAL HISTORY: Reviewed. REVIEW OF SYSTEMS: Fourteen-point review is negative as mentioned earlier. CURRENT MEDICATIONS: Reviewed. PHYSICAL EXAMINATION: VITAL SIGNS: Pulse 107, blood pressure 158/88, respirations 20. HEENT: Conjunctivae normal. NECK: No jugular venous distention. CARDIOVASCULAR: S1, S2. RESPIRATIONS: Few scattered rhonchi. ABDOMEN: Soft. NERVOUS SYSTEM: Diffusely weak. LABS: Sodium 129, rest of the labs are noted. ASSESSMENT: 1. COPD acute exacerbation with possible left lung pneumonia, community-acquired. 2. Hyponatremia, multifactorial possibly also secondary to beer potomania. 3. Hypertension. 4. Hyperlipidemia. 5. Pleural plaques on the left side. 6. Multiple complex medical issues. RECOMMENDATIONS: I recommend to continue current management and symptomatic management. Recommend CT scan of the chest to complete the workup. Repeat labs have been ordered. Continue with bronchodilators. Continue with rest of the medications. The prognosis guarded because of multiple complex medical issues. Further recommendations to follow. MMODL / IJN: [id number] /
[2025-05-09 09:46] LABS: Basophils # (A) 0.01 X 10*3/uL (0.00-0.10); Basophils % (A) 0.1 %; Eosinophils # (A) 0 X 10*3/uL (0.04-0.35); Eosinophils % (A) 0 %; HCT 29.6 % (39.6-50.0); HGB 10.4 g/dL (13.0-17.0); Immature Grans, Automated 0.60 %; Lymphocytes # (A) 0.90 X 10*3/uL (0.90-5.00); Lymphocytes % (A) 6.9 %; MCH 30.1 pg (27.0-32.0); MCHC 35.1 g/dL (32.0-37.0); MCV 85.5 FL (80.0-97.0); Monocytes # (A) 1.09 X 10*3/uL (0.20-1.00); Monocytes % (A) 8.3 %; NRBC Per 100 WBC 0 X 10*3/uL (0.00-0.01); Neutrophils # (A) 11.00 X 10*3/uL (1.80-7.70); Neutrophils % (A) 84.1 %; Platelet Count 567 X 10*3/uL (140-440); RBC 3.46 X 10*6/uL (4.40-5.60); RDW 15.2 % (11.5-14.5); WBC 13.08 X 10*3/uL (4.50-10.00)
[2025-05-09 09:57] LABS: Anion Gap 8.60 mmol/L (4.00-12.00); BUN/Creat Ratio 47.30 Ratio (12.00-20.00); Blood Urea Nitrogen 47.3 mg/dL (9.0-27.0); Calcium 8.7 mg/dL (8.7-10.3); Carbon Dioxide 27.4 mmol/L (21.6-31.8); Chloride 92 mmol/L (96-109); Glucose 131 mg/dL (70-110); Potassium 4.6 mmol/L (3.5-5.5); Sodium 128 mmol/L (135-145)
--- NOTE | 2025-05-09 10:43 | P.PN ---
Subjective Progress Note Date: 05/09/25 following for hyponatremia. patient seen today, feeling fine, no new complaints. sodium level 128 this mo rning on UREA 15 g BID Objective - Vital Signs Vital signs: Vital Signs Temp 98.1 F 05/09/25 07:11 Pulse 102 H 05/09/25 09:13 Resp 17 05/09/25 07:11 BP 143/83 05/09/25 07:11 Pulse Ox 94 L 05/09/25 07:11 FiO2 Intake & Output 05/08/25 05/09/25 05/09/25 18:59 06:59 18:59 Output Total 1233 400 400 Balance -1233 -400 -400 Weight 61.377 kg Output: Urine 400 400 400 Post Void Residual 833 Other: Voiding Method Urinal Urinal - Exam GEN: Healthy appearing, non-toxic, well-developed, NAD. CV: S1/S2 regular, no murmurs. LUNGS: CTAB, ABD: Soft, NT/ND, EXT: No clubbing, cyanosis, or edema. NEURO: grossly intact. - Labs CBC & Chem 7: 05/09/25 03:45 05/09/25 03:45 Labs: Abnormal Lab Results - Last 24 Hours (Table) 05/09/25 05/09/25 Range/Units 03:45 03:45 WBC 13.08 H (4.50-10.00) X 10*3/uL RBC 3.46 L (4.40-5.60) X 10*6/uL Hgb 10.4 L (13.0-17.0) g/dL Hct 29.6 L (39.6-50.0) % RDW 15.2 H (11.5-14.5) % Plt Count 567 H (140-440) X 10*3/uL Immature Gran # 0.08 H (0.00-0.04) X 10*3/uL Neutrophils # 11.00 H (1.80-7.70) X 10*3/uL Monocytes # 1.09 H (0.20-1.00) X 10*3/uL Eosinophils # 0 L (0.04-0.35) X 10*3/uL Sodium 128 L (135-145) mmol/L Chloride 92 L (96-109) mmol/L BUN 47.3 H (9.0-27.0) mg/dL BUN/Creatinine Ratio 47.30 H (12.00-20.00) Ratio Glucose 131 H (70-110) mg/dL Assessment and Plan Assessment: 1. 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 History of EtOH abuse with poor oral intake. Urine osmolarity is 330. Saline has been discontinued. Patient received 1 dose of sodium chloride tab. Iv Lasix x1 and Tolvaptan x1 . started on Urea BID 2. History of EtOH abuse 3. COPD exacerbation 4. Possible pneumonia with infiltrates noted on the left lung. Plan: Continue Urea 15 g BID repeat urine sodium and osm. may need another dose of Tolvaptan Hold further IV fluids or diuretics. Goal sodium level increase by 6-8 meq in 24 hours. Encourage increased oral intake particularly protein. monitor sodium level BID
--- NOTE | 2025-05-09 11:08 | P.PN ---
Subjective Progress Note Date: 05/09/25 Patient is a 69-year-old male with past medical history significant for hypertension, hyperlipidemia, alcoholism, GERD, COPD, previous heavy tobacco use, and previous asbestos exposure. He does follow in the pulmonary office with Dr. Gonzalez. Patient is known to have severe COPD with an FEV1 22% of predi cted. He is unfamiliar with his home inhalers. He has home O2 available at home but does not use it. Of note, recent treated in the emergency department on 04/28 for COPD exacerbation/pneumonia with a combination of Levaquin and prednisone. Chest x-ray done at that time showing a chronic left lower lobe airspace opacity. 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 Patient returns to the emergency department yesterday afternoon complaining of increased work of breathing, increased congested cough with sputum hemoptysis mixed with phlegm 1 to 2 weeks ago. Associated weakness and fatigue over the same timeframe. He states he did complete his antibiotics and steroids given previously in the ED. No improvement in his symptoms. Chest x-ray done in the emergency department showing chronic patchy mid and lower lung opacity on the left, otherwise no new focal infiltrates. CBC including a WBC count of 12.13, hemoglobin 12.6, platelets 568. PT 10.9 INR 1. CMP: Sodium 129, potassium 4.2, chloride 94, serum bicarb 27, BUN 26, creatinine 0.79, glucose 88. Lactic 1.7. Magnesium 1.4. LFTs not elevated. Troponin less than 0.012. NT proBNP 256. Patient previously empirically placed on azithromycin and also received a dose of Levaquin in the ED. Patient currently being evaluated the general medical floor. He is on 2 L/min nasal cannula. In no apparent distress. Endorses above-mentioned symptoms. Increased work of breathing with associated congested cough and white to clear sputum production. Denies any further hemoptysis. Denies any known sick contacts or recent travel. Denies any fevers or chills. Denies any nausea, vomiting, diarrhea. Denies any chest pain, heart palpitations, syncope, lower extremity edema. Vital signs are stable. The patient is seen today May 06, 2025 in follow-up on the regular medical floor. He is currently awake and alert in no acute distress. Sitting up in a chair at the bedside. Maintaining O2 saturations in the 90s on 2 L/min per nasal cannula. He is still somewhat dyspneic with conversation. Dyspneic with minimal exertion. He remains on DuoNeb inhalations, Symbicort, Solu-Medrol. Heparin for DVT prophylaxis. Effexor and Ativan as needed for anxiety. Remains on oral diuretics. Remains on Robitussin for cough. Sputum culture pending. White count 11.8. Hemoglobin 10.2. Platelets 547. Sodium 122. Potassium 4.5. Bicarb 26. BUN 17. Creatinine 0.8. Glucose 134. Procalcitonin was negative at 0.07. The patient is seen today May 07, 2025 in follow-up on the regular medical floor. He is currently resting comfortably in bed. Awake and alert in no acute distress. Still with some dyspnea with conversation. Dyspneic with minimal exertion. He is continued on DuoNeb inhalations, Symbicort, Solu-Medrol. Heparin for DVT prophylaxis. Remains on the CIWA protocol. Sodium was 118. Potassium 4.5. Bicarb 26. BUN 17. Creatinine 0.8. Glucose 134. Urine random sodium was less than 20. White count 11.8. Hemoglobin 10.2. Platelets 547. He did receive a one-time dose of 1 g of sodium chloride tablet early this morning. He had 0.9 normal saline at 75 mL/h. He received Lasix 20 mg IV x 1 today. Nephrology is following. Follow-up sodium at 4 PM today. The patient is seen today May 08, 2025 in follow-up on the regular medical floor. He is sitting up in bed. Awake and alert in no acute distress. Feeling a bit better today compared to yesterday. Not quite back to his baseline. He is maintaining good O2 saturations in the mid to upper 90s on 2 L/min per nasal cannula. He remains afebrile. Hemodynamically stable. Sputum culture revealed no growth. White count 12.3. Hemoglobin 11.1. Platelets 593. Sodium 129. Potassium 4.7. Bicarb 27. BUN 32. Creatinine 1.0. Glucose 133. He remains on DuoNeb inhalations, Symbicort, Solu-Medrol. Heparin for DVT prophylaxis. Receiving Samsca and Ure-Na per nephrology. The patient is seen today May 09, 2025 in follow-up on the regular medical floor. He is resting in bed. Awake and alert in no acute distress. Good O2 saturations in the 90s on 2 L/min per nasal cannula. He is been afebrile. Hemodynamically stable. CT scan of the chest revealed no acute abnormalities. Chronic findings in the left lung are stable since 2023. Sputum culture revealed no growth. White count 13.0. Hemoglobin 10.4. Platelets 567. Sodium 128. Potassium 4.6. Bicarb 27. BUN 47. Creatinine 1.0. Glucose 131. He remains on DuoNeb inhalations, Symbicort, Solu-Medrol. Heparin for DVT prophylaxis. Remains on Urea per nephrology. Objective - Vital Signs Vital signs: Vital Signs Temp 98.1 F 05/09/25 07:11 Pulse 102 H 05/09/25 09:13 Resp 17 05/09/25 07:11 BP 143/83 05/09/25 07:11 Pulse Ox 94 L 05/09/25 07:11 FiO2 Intake & Output 05/08/25 05/09/25 05/09/25 18:59 06:59 18:59 Output Total 1233 400 400 Balance -1233 -400 -400 Weight 61.377 kg Output: Urine 400 400 400 Post Void Residual 833 Other: Voiding Method Urinal Urinal - Exam GENERAL EXAM: Alert, pleasant 69-year-old male, sitting up in bed, on 2 L nasal cannula, comfortable in no apparent distress. HEAD: Normocephalic and atraumatic EYES: Normal reaction of pupils, equal size. NOSE: Clear with pink turbinates. THROAT: No erythema or exudates. NECK: No masses, no JVD. CHEST: No chest wall deformity. LUNGS: Equal air entry with no wheeze, rhonchi, crackles or dullness. CVS: S1 and S2 normal with no audible murmur, regular rhythm. No extra heart sounds ABDOMEN: No hepatosplenomegaly, active bowel sounds, no guarding or rigidity. SPINE: No scoliosis or deformity SKIN: No rashes CENTRAL NERVOUS SYSTEM: No focal deficits, tone is normal in all 4 extremities. EXTREMITIES: There is no peripheral edema, clubbing, or cyanosis. Peripheral pulses are intact. - Labs CBC & Chem 7: 05/09/25 03:45 05/09/25 03:45 Labs: Abnormal Lab Results - Last 24 Hours (Table) 05/09/25 05/09/25 Range/Units 03:45 03:45 WBC 13.08 H (4.50-10.00) X 10*3/uL RBC 3.46 L (4.40-5.60) X 10*6/uL Hgb 10.4 L (13.0-17.0) g/dL Hct 29.6 L (39.6-50.0) % RDW 15.2 H (11.5-14.5) % Plt Count 567 H (140-440) X 10*3/uL Immature Gran # 0.08 H (0.00-0.04) X 10*3/uL Neutrophils # 11.00 H (1.80-7.70) X 10*3/uL Monocytes # 1.09 H (0.20-1.00) X 10*3/uL Eosinophils # 0 L (0.04-0.35) X 10*3/uL Sodium 128 L (135-145) mmol/L Chloride 92 L (96-109) mmol/L BUN 47.3 H (9.0-27.0) mg/dL BUN/Creatinine Ratio 47.30 H (12.00-20.00) Ratio Glucose 131 H (70-110) mg/dL Assessment and Plan Assessment: Acute COPD exacerbation, chest x-ray taken on arrival demonstrates chronic left basilar pleural and parenchymal changes with chronic pleural calcification. Possibility of left lower lobe community-acquired pneumonia felt to be less likely. Procalcitonin was negative at 0.07. CT scan of the chest revealed no a cute pulmonary process. Chronic bronchiectatic changes in the left base stable since 2023 Acute on chronic hypoxemic respiratory failure, currently maintained on 2 L/min nasal cannula, secondary to above Acute leukocytosis Hyponatremia, likely secondary to beer potomania, possible SIADH. Received Samsca and Ure-Na. Current sodium 129 Hypomagnesemia, replaced Severe chronic obstructive pulmonary disease, with an FEV1 22% of predicted at baseline History of asbestosis Former tobacco dependence History of GERD without esophagitis Alcoholism, currently drinks 4-7, 12 ounce beers per day, last drink a couple weeks ago History of hypertension History of hyperlipidemia Plan: The patient was seen and evaluated Labs and medications reviewed CT scan of the chest reviewed No acute pulmonary process Chronic changes of left base Stable since 2023 Sodium 128 today Currently on Ure-Na Continue DuoNeb inhalations Continue Symbicort Discontinue Solu-Medrol Convert to a prednisone taper Heparin for DVT prophylaxis Robitussin as needed Titrate down the FiO2 as tolerated Increase his activity as tolerated Cleared for discharge from the pulmonary standpoint I have personally seen and examined the patient, performed the documentation and the assessment and plan as written. Number of minutes spent on the visit: 10 Dictation was produced using [employer] dictation software. Please excuse any grammatical, word or spelling errors.
[2025-05-09] MEDS: amLODIPine 10 MG TAB PO SCH (16:17)
[2025-05-10 04:43] LABS: Basophils # (A) 0.04 10*3/uL (0.00-0.10); Basophils % (A) 0.3 %; Eosinophils # (A) 0.07 10*3/uL (0.04-0.35); Eosinophils % (A) 0.6 %; HCT 29.3 % (39.6-50.0); HGB 10.4 g/dL (13.0-17.0); Lymphocytes # (A) 3.38 10*3/uL (0.90-5.00); Lymphocytes % (A) 27.2 %; MCH 30.6 pg (27.0-32.0); MCHC 35.5 g/dL (32.0-37.0); MCV 86.2 fL (80.0-97.0); Monocytes # (A) 1.83 10*3/uL (0.20-1.00); Monocytes % (A) 14.7 %; Neutrophils # (A) 6.90 10*3/uL (1.80-7.70); Neutrophils % (A) 55.6 %; Platelet Count 456 10*3/uL (140-440); RBC 3.40 10*6/uL (4.40-5.60); RDW 15.5 % (11.5-14.5); WBC 12.42 10*3/uL (4.50-10.00)
--- NOTE | 2025-05-10 04:44 | PN ---
PROGRESS NOTE DATE OF SERVICE: 05/09/2025 SUBJECTIVE: This is a 69-year-old gentleman, admitted with COPD exacerbation, also had possible left lung pneumonia. The patient is being closely monitored. The patient apparently had some renovation happening in the house at this time. Some chronic changes also noted in the left lower lung. PAST MEDICAL HISTORY: Reviewed. REVIEW OF SYSTEMS: Fourteen-point review is negative. CURRENT MEDICATIONS: Reviewed. PHYSICAL EXAMINATION: VITAL SIGNS: Pulse is 101, blood pressure 160/92, respirations 18. HEENT: Conjunctivae normal. CARDIOVASCULAR: S1 and S2 normal. RESPIRATIONS: Breath sounds diminished at the bases. ABDOMEN: Soft. NERVOUS SYSTEM: Nonfocal. LABORATORY DATA: Sodium 128. ASSESSMENT: 1. Chronic obstructive pulmonary disease acute exacerbation with possible left lung pneumonia with community-acquired. 2. Chronic changes in the left lower lung. 3. Hyponatremia, multifactorial, possibly secondary to beer potomania. 4. Hypertension. 5. Hyperlipidemia. 6. Pleural plaques on the left side. 7. Multiple complex medical issues. RECOMMENDATIONS AND DISCUSSION: Recommend to continue current management, continue symptomatic treatment. Otherwise, add Norvasc to the current regimen. Continue to monitor. Guarded prognosis. Further recommendations to follow. MMODL / IJN: [id number] /
[2025-05-10 05:55] LABS: ALT 20 U/L (4-49); AST 28 U/L (17-59); African American GFR (CKD) >90 (>60 ml/min/1.73 sqM); Albumin 2.5 g/dL (3.5-5.0); Albumin/Globulin Ratio 1.2; Alkaline Phosphatase 51 U/L (38-126); Anion Gap 3 mmol/L; Blood Urea Nitrogen 56 mg/dL (9-20); Calcium 8.3 mg/dL (8.4-10.2); Carbon Dioxide 27 mmol/L (22-30); Chloride 90 mmol/L (98-107); Globulin 2.1 g/dL; Glucose 72 mg/dL (74-99); Non-African American GFR(CKD) >90 (>60 ml/min/1.73 sqM); Potassium 5.2 mmol/L (3.5-5.1); Sodium 120 mmol/L (137-145); Total Protein 4.6 g/dL (6.3-8.2)
[2025-05-10] MEDS: LORazepam 1 MG/0.5 ML VIAL IV PRN (09:33)
[2025-05-10] MEDS: predniSONE 20 MG TAB PO SCH (09:34)
--- NOTE | 2025-05-10 13:21 | P.PN ---
Subjective Patient is seen for follow-up for hyponatremia. Sodium had increased to 129 over the weekend and dropped down to 120 today. Patient denies any significant increase in fluid intake. He has received Samsca on Saturday. Currently maintained on urea Blood pressure is not high Tolerating oral intake Urine osmolality 563 with random urine sodium less than 20 Objective - Vital Signs Vital signs: Vital Signs Temp 97.4 F L 05/10/25 07:07 Pulse 77 05/10/25 07:07 Resp 18 05/10/25 07:07 BP 136/73 05/10/25 07:07 Pulse Ox 98 05/10/25 07:07 FiO2 Intake & Output 05/09/25 05/10/25 05/10/25 18:59 06:59 18:59 Output Total 950 1250 700 Balance -950 -1250 -700 Weight 61.377 kg 62.9 kg Output: Urine 950 1250 700 Other: Voiding Method Urinal - Exam Patient is awake, comfortable, no acute distress Examination of the heart S1 and S2 Examination of the lungs bilateral breath sounds are heard Abdomen is soft nontender Examination of lower extremities shows no evidence of edema RETIREMENT ACTUARY exam grossly intact - Labs CBC & Chem 7: 05/10/25 03:15 05/10/25 03:15 Labs: Abnormal Lab Results - Last 24 Hours (Table) 05/09/25 05/10/25 05/10/25 Range/Units 12:30 03:15 03:15 WBC 12.42 H (4.50-10.00) 10*3/uL RBC 3.40 L (4.40-5.60) 10*6/uL Hgb 10.4 L (13.0-17.0) g/dL Hct 29.3 L (39.6-50.0) % RDW 15.5 H (11.5-14.5) % Plt Count 456 H (140-440) 10*3/uL MPV 9.4 L (9.5-12.2) fL Immature Gran # 0.20 H (0.00-0.04) 10*3/uL Monocytes # 1.83 H (0.20-1.00) 10*3/uL Sodium 120 L (137-145) mmol/L Potassium 5.2 H (3.5-5.1) mmol/L Chloride 90 L (98-107) mmol/L BUN 56 H (9-20) mg/dL Glucose 72 L (74-99) mg/dL Calcium 8.3 L (8.4-10.2) mg/dL Total Protein 4.6 L (6.3-8.2) g/dL Albumin 2.5 L (3.5-5.0) g/dL Ur Random Sodium <20 L (40-220) mmol/L Assessment and Plan Assessment: 1. 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 History of EtOH abuse with poor oral intake. Urine osmolarity is 330 and 563. Currently maintained on urea. Status post 1 dose of Samsca. 2. History of EtOH abuse 3. COPD exacerbation 4. Possible pneumonia with infiltrates noted on the left lung. CT chest shows chronic findings with no recent change. Plan: Continue urea Add sodium chloride tab Repeat sodium this afternoon Maintain fluid restriction. Hold
--- NOTE | 2025-05-10 13:27 | P.PN ---
Subjective Progress Note Date: 05/10/25 Patient is a 69-year-old male with past medical history significant for hypertension, hyperlipidemia, alcoholism, GERD, COPD, previous heavy tobacco use, and previous asbestos exposure. He does follow in the pulmonary office with Dr. Gonzalez. Patient is known to have severe COPD with an FEV1 22% of predi cted. He is unfamiliar with his home inhalers. He has home O2 available at home but does not use it. Of note, recent treated in the emergency department on 04/28 for COPD exacerbation/pneumonia with a combination of Levaquin and prednisone. Chest x-ray done at that time showing a chronic left lower lobe airspace opacity. 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 Patient returns to the emergency department yesterday afternoon complaining of increased work of breathing, increased congested cough with sputum hemoptysis mixed with phlegm 1 to 2 weeks ago. Associated weakness and fatigue over the same timeframe. He states he did complete his antibiotics and steroids given previously in the ED. No improvement in his symptoms. Chest x-ray done in the emergency department showing chronic patchy mid and lower lung opacity on the left, otherwise no new focal infiltrates. CBC including a WBC count of 12.13, hemoglobin 12.6, platelets 568. PT 10.9 INR 1. CMP: Sodium 129, potassium 4.2, chloride 94, serum bicarb 27, BUN 26, creatinine 0.79, glucose 88. Lactic 1.7. Magnesium 1.4. LFTs not elevated. Troponin less than 0.012. NT proBNP 256. Patient previously empirically placed on azithromycin and also received a dose of Levaquin in the ED. Patient currently being evaluated the general medical floor. He is on 2 L/min nasal cannula. In no apparent distress. Endorses above-mentioned symptoms. Increased work of breathing with associated congested cough and white to clear sputum production. Denies any further hemoptysis. Denies any known sick contacts or recent travel. Denies any fevers or chills. Denies any nausea, vomiting, diarrhea. Denies any chest pain, heart palpitations, syncope, lower extremity edema. Vital signs are stable. The patient is seen today May 06, 2025 in follow-up on the regular medical floor. He is currently awake and alert in no acute distress. Sitting up in a chair at the bedside. Maintaining O2 saturations in the 90s on 2 L/min per nasal cannula. He is still somewhat dyspneic with conversation. Dyspneic with minimal exertion. He remains on DuoNeb inhalations, Symbicort, Solu-Medrol. Heparin for DVT prophylaxis. Effexor and Ativan as needed for anxiety. Remains on oral diuretics. Remains on Robitussin for cough. Sputum culture pending. White count 11.8. Hemoglobin 10.2. Platelets 547. Sodium 122. Potassium 4.5. Bicarb 26. BUN 17. Creatinine 0.8. Glucose 134. Procalcitonin was negative at 0.07. The patient is seen today May 07, 2025 in follow-up on the regular medical floor. He is currently resting comfortably in bed. Awake and alert in no acute distress. Still with some dyspnea with conversation. Dyspneic with minimal exertion. He is continued on DuoNeb inhalations, Symbicort, Solu-Medrol. Heparin for DVT prophylaxis. Remains on the CIWA protocol. Sodium was 118. Potassium 4.5. Bicarb 26. BUN 17. Creatinine 0.8. Glucose 134. Urine random sodium was less than 20. White count 11.8. Hemoglobin 10.2. Platelets 547. He did receive a one-time dose of 1 g of sodium chloride tablet early this morning. He had 0.9 normal saline at 75 mL/h. He received Lasix 20 mg IV x 1 today. Nephrology is following. Follow-up sodium at 4 PM today. The patient is seen today May 08, 2025 in follow-up on the regular medical floor. He is sitting up in bed. Awake and alert in no acute distress. Feeling a bit better today compared to yesterday. Not quite back to his baseline. He is maintaining good O2 saturations in the mid to upper 90s on 2 L/min per nasal cannula. He remains afebrile. Hemodynamically stable. Sputum culture revealed no growth. White count 12.3. Hemoglobin 11.1. Platelets 593. Sodium 129. Potassium 4.7. Bicarb 27. BUN 32. Creatinine 1.0. Glucose 133. He remains on DuoNeb inhalations, Symbicort, Solu-Medrol. Heparin for DVT prophylaxis. Receiving Samsca and Ure-Na per nephrology. The patient is seen today May 09, 2025 in follow-up on the regular medical floor. He is resting in bed. Awake and alert in no acute distress. Good O2 saturations in the 90s on 2 L/min per nasal cannula. He is been afebrile. Hemodynamically stable. CT scan of the chest revealed no acute abnormalities. Chronic findings in the left lung are stable since 2023. Sputum culture revealed no growth. White count 13.0. Hemoglobin 10.4. Platelets 567. Sodium 128. Potassium 4.6. Bicarb 27. BUN 47. Creatinine 1.0. Glucose 131. He remains on DuoNeb inhalations, Symbicort, Solu-Medrol. Heparin for DVT prophylaxis. Remains on Urea per nephrology. The patient is seen today May 10, 2025 in follow-up on the regular medical floor. He is currently sitting up in bed. Awake and alert in no acute distress. Maintaining O2 saturations in the 90s on 2 L/min per nasal cannula. He has been afebrile. Hemodynamically stable. Sputum culture revealed no growth. White count 12.4. Hemoglobin 10.4. Platelets 456. Sodium 120. Potassium 5.2. Bicarb 27. BUN 56. Creatinine 0.81. Glucose 72. He remains on DuoNeb inhalations, Symbicort, prednisone taper. He remains on Urea and sodium chloride tablets. Heparin for DVT prophylaxis. Robitussin for his cough. Objective - Vital Signs Vital signs: Vital Signs Temp 97.4 F L 05/10/25 07:07 Pulse 77 05/10/25 07:07 Resp 18 05/10/25 07:07 BP 136/73 05/10/25 07:07 Pulse Ox 98 05/10/25 07:07 FiO2 Intake & Output 05/09/25 05/10/25 05/10/25 18:59 06:59 18:59 Output Total 950 1250 700 Balance -950 -1250 -700 Weight 61.377 kg 62.9 kg Output: Urine 950 1250 700 Other: Voiding Method Urinal - Exam GENERAL EXAM: Alert, 69-year-old male, on 2 L nasal cannula, in no apparent distress. HEAD: Normocephalic and atraumatic EYES: Normal reaction of pupils, equal size. NOSE: Clear with pink turbinates. THROAT: No erythema or exudates. NECK: No masses, no JVD. CHEST: No chest wall deformity. LUNGS: Equal air entry with no wheeze, rhonchi, crackles or dullness. CVS: S1 and S2 normal with no audible murmur, regular rhythm. No extra heart sounds ABDOMEN: No hepatosplenomegaly, active bowel sounds, no guarding or rigidity. SPINE: No scoliosis or deformity SKIN: No rashes CENTRAL NERVOUS SYSTEM: No focal deficits, tone is normal in all 4 extremities. EXTREMITIES: There is no peripheral edema, clubbing, or cyanosis. Peripheral pulses are intact. - Labs CBC & Chem 7: 05/10/25 03:15 05/10/25 03:15 Labs: Abnormal Lab Results - Last 24 Hours (Table) 05/09/25 05/10/25 05/10/25 Range/Units 12:30 03:15 03:15 WBC 12.42 H (4.50-10.00) 10*3/uL RBC 3.40 L (4.40-5.60) 10*6/uL Hgb 10.4 L (13.0-17.0) g/dL Hct 29.3 L (39.6-50.0) % RDW 15.5 H (11.5-14.5) % Plt Count 456 H (140-440) 10*3/uL MPV 9.4 L (9.5-12.2) fL Immature Gran # 0.20 H (0.00-0.04) 10*3/uL Monocytes # 1.83 H (0.20-1.00) 10*3/uL Sodium 120 L (137-145) mmol/L Potassium 5.2 H (3.5-5.1) mmol/L Chloride 90 L (98-107) mmol/L BUN 56 H (9-20) mg/dL Glucose 72 L (74-99) mg/dL Calcium 8.3 L (8.4-10.2) mg/dL Total Protein 4.6 L (6.3-8.2) g/dL Albumin 2.5 L (3.5-5.0) g/dL Ur Random Sodium <20 L (40-220) mmol/L Assessment and Plan Assessment: Acute COPD exacerbation, chest x-ray taken on arrival demonstrates chronic left basilar pleural and parenchymal changes with chronic pleural calcification. Possibility of left lower lobe community-acquired pneumonia felt to be less likely. Procalcitonin was negative at 0.07. CT scan of the chest revealed no acute pulmonary process. Chronic bronchiectatic changes in the left base stable since 2023 Acute on chronic hypoxemic respiratory failure, currently maintained on 2 L/min nasal cannula, secondary to above Acute leukocytosis Hyponatremia, likely secondary to beer potomania, possible SIADH. Received Samsca and Ure-Na. Current sodium 129 Hypomagnesemia, replaced Severe chronic obstructive pulmonary disease, with an FEV1 22% of predicted at baseline History of asbestosis Former tobacco dependence History of GERD without esophagitis Alcoholism, currently drinks 4-7, 12 ounce beers per day, last drink a couple weeks ago History of hypertension History of hyperlipidemia Plan: The patient was seen and evaluated Labs and medications reviewed Sodium 120 today Currently on Ure-Na Continue DuoNeb inhalations Continue Symbicort Continue prednisone taper Heparin for DVT prophylaxis Robitussin as needed Titrate down the FiO2 as tolerated Increase his activity as tolerated Cleared for discharge once cleared by nephrology I have personally seen and examined the patient, performed the documentation and the assessment and plan as written. Number of minutes spent on the visit: 10 Dictation was produced using [employer] dictation software. Please excuse any grammatical, word or spelling errors.
[2025-05-10] MEDS: SODIUM CHLORIDE TAB 1 GM TAB PO SCH (14:49)
[2025-05-10] MEDS ORDERED: TEMAZEPAM 15 MG CAP PO PRN (16:56)
[2025-05-10] MEDS: TOLVAPTAN 15 MG TABLET PO ONE (20:38)
--- NOTE | 2025-05-10 23:29 | P.PN ---
Subjective Progress Note Date: 05/10/25 Patient is a 69-year-old man with a known history of COPD on home oxygen of 2 L via nasal cannula, chronic CHF with systolic dysfunction ejection fraction 45 to 50%, hypertension, hyperlipidemia, history of alcohol use disorder, depression, prior history of smoking patient presents to ER with complaints of worsening shortness of breath. Patient states that he was recently recently seen in the ER on 04/28/2025, prescribed antibiotic course which he completed yesterday but his symptoms are not resolving and has been worsening since yesterday again. He was on Levaquin and steroid tapering course. Does have cough with whitish to light yellow sputum production. Denied any fever or chills. No complaints of chest pain. Patient is also complaining of generalized weakness and fatigue. No nausea vomiting abdominal pain or diarrhea. Chest x-ray showed COPD with marked emphysema. Patchy mid and lower lung opacity on the left persists and may be slightly increased. Underlying pneumonia not excluded.. EKG showed sinus rhythm with possible old septal CT. Most recent echocardiogram done on 06/25/2024 showed LVEF 45 to 50% with moderate RV enlargement. Mild pulmonary hypertension. Laboratory data showed WBC 12.1 hemoglobin 12.6 and platelets 568 Sodium 129 potassium 4.2 chloride 94 bicarb is 27 BUN 26 and creatinine 0.79 and blood sugar 88 and magnesium 1.4. Troponin 0.012 and proBNP 256. 05/05/2025 Patient is seen in follow-up today mildly tearful and depressed although denies any suicidal ideation or thoughts of harming himself. Patient reports he has significant lung damage with asbestos and is not getting better and was told by pulmonary he has less than 25% function of his lungs. Patient is currently maintained on 3 L via nasal cannula which he is now wearing outpatient and continued on breathing treatments with also concerns of pneumonia. Suspicion for pneumonia is low and procalcitonin is 0.07. Will continue empiric Zithromax for now. Patient is afebrile with no reports of chest pain or palpitations although continues to report significant shortness of breath and extreme dyspnea with minimal exertion. Patient reports attempting to eat and tolerating some diet although not much of an appetite. Awaiting PT/OT therapy evaluation. 05/06/2025 Patient is seen in follow-up today continues to be bronchospastic and significantly short of breath doing more of getting up and walking to the bathroom maintained on 2 L currently at 97%. Patient is afebrile and procal citonin is negative. Will continue steroids, clinic breathing treatments with pulmonary following closely. Encouraged to increase activity as tolerated with sitting up in the chair more frequently. Patient does not feel ready for discharge home as he continues to be significantly short of breath with minimal exertion. Awaiting PT/OT therapy evaluation. 05/07/2025 Patient is seen in follow-up today breathing slightly improved and patient was able to shower on room air briefly and maintaining oxygen saturations. Patient is continued with pulmonary and nephrology following. Sodium is significantly low at 118 and being given some sodium chloride recommending repeat labs and close monitoring. Patient is not eating very well and encouraged oral intake. To continue with CIWA protocol as needed although patient is not actively withdrawing. Patient reports last drink was weeks ago. Encouraged increase activity as tolerated. Gait steady on exam 05/10/2025 Patient is seen in follow-up today with pulmonary and nephrology following. Sodium has gone down again and patient is maintained on urea twice daily. Current sodium is 120 and nephrology following. Potassium also on low potassium diet labs. Patient reports he is not sleeping much not eating well and has continued ongoing stress with major stressors in his life. Patient also reports he would like to discontinue steroids as it is contributing to him not sleeping. Recommend fluid restrictions and close monitoring of with replacement per protocol. Patient was transitioned to oral prednisone. Encouraged to increase as tolerated. Review of systems: Constitutional: No reports of fatigue, fever, or chills Cardiovascular: No reports of chest pain or palpitations Respiratory: reports of continued shortness of breath and extreme dyspnea with exertion. Frequent coughing and bronchospasms but feels it is improving GI: No reports of nausea, vomiting, or diarrhea, reports not much of an appetite : No reports of dysuria or retention Neurovascular: reports of generalized weakness All medications have been reviewed PHYSICAL EXAMINATION: Patient is a 69-year-old male who is awake, alert and oriented x 3, laying in bed, well-developed, elderly appearing, thin built, awake alert and oriented x 3.. HEENT: Normocephalic. Neck is supple. Pupils reactive. Nostrils clear. Oral cavity is moist. Neck reveals no JVD, carotid bruits, or thyromegaly. CHEST EXAMINATION: Trachea is central. Symmetrical expansion. Bilateral diffuse wheezing and rhonchi. Nonlabored breathing. Nasal cannula noted CARDIAC: S1, S2 muffled ABDOMEN: Soft. Thin, bowel sounds present no organomegaly. No abdominal bruits. Extremities: reveal no edema. No clubbing or cyanosis Neurologically awake, alert, oriented x3 with well-coordinated movements. No focal deficits noted and does not appear to be withdrawing from alcohol Skin: No rash or skin lesions. Psychiatric: Cooperative. Non-suicidal, anxious. appears depressed Musculoskeletal: No joint swelling or deformity. Normal range of motion. Assessment: Worsening shortness of breath secondary to acute COPD exacerbation Possible left lower lung pneumonia, community-acquired, although suspicion is low his procalcitonin is 0.07 Hyponatremia, likely secondary to beer Potomania, worsening and currently 118 Advanced COPD History of hypertension History of hyperlipidemia Acute on chronic chronic hypoxic respiratory failure currently on 2 L oxygen via nasal cannula Chronic CHF with systolic dysfunction ejection fraction 45 to 50%, not in exacerbation Cardiomyopathy ischemic versus nonischemic History of alcohol use disorder and reports his last drink was 04-20-2025 Depression Prior history of smoking DVT prophylaxis with heparin subcu GI prophylaxis Full code Plan: Patient will be continued on oxygen supplementation. Patient reports he has been wearing 3 L at home Patient has completed a course of antibiotics. Procalcitonin was not elevated at 0.07. Sputum culture is negative thus far Patient has started oral steroids along with continued DuoNebs and Symbicort. Pulmonary following. Patient will need outpatient follow-up Home medications reviewed and resumed as appropriate Patient does not appear to be actively withdrawing will continue as needed Ativan for extreme anxiety. Will also provide Restoril as needed for sleep Encouraged increase activity as tolerated as patient is extremely dyspneic requiring multiple breaks and becomes extremely exerted. Patient was to shower briefly today on room air Hyponatremia is significantly low and 120 today, likely secondary to alcohol use for oral intake, nephrology following and is being given sodium chloride tablets. Recommend repeat labs Encouraged oral intake and fluid restrictions Overall prognosis is guarded. The impression and plan of care has been dictated by Emelyn Cole, Nurse Practitioner as directed. Dr. Sergio MD I have performed a history and examination and MDM of this patient, discussed the same with the dictator, and agree with the dictator's assessment and plan as written ,documented as a scribe. Based on total visit time, I have performed more than 50% of the visit. Objective - Vital Signs Vital signs: Vital Signs Temp 98.0 F 05/10/25 15:00 Pulse 81 05/10/25 15:00 Resp 18 05/10/25 15:00 BP 126/79 05/10/25 15:00 Pulse Ox 98 05/10/25 15:00 FiO2 Intake & Output 05/09/25 05/10/25 05/10/25 18:59 06:59 18:59 Output Total 950 1250 1000 Balance -950 -1250 -1000 Weight 61.377 kg 62.9 kg Output: Urine 950 1250 1000 Other: Voiding Method Urinal - Labs CBC & Chem 7: 05/10/25 03:15 05/10/25 17:23 Labs: Abnormal Lab Results - Last 24 Hours (Table) 05/09/25 05/10/25 05/10/25 Range/Units 12:30 03:15 03:15 WBC 12.42 H (4.50-10.00) 10*3/uL RBC 3.40 L (4.40-5.60) 10*6/uL Hgb 10.4 L (13.0-17.0) g/dL Hct 29.3 L (39.6-50.0) % RDW 15.5 H (11.5-14.5) % Plt Count 456 H (140-440) 10*3/uL MPV 9.4 L (9.5-12.2) fL Immature Gran # 0.20 H (0.00-0.04) 10*3/uL Monocytes # 1.83 H (0.20-1.00) 10*3/uL Sodium 120 L (137-145) mmol/L Potassium 5.2 H (3.5-5.1) mmol/L Chloride 90 L (98-107) mmol/L BUN 56 H (9-20) mg/dL Glucose 72 L (74-99) mg/dL Calcium 8.3 L (8.4-10.2) mg/dL Total Protein 4.6 L (6.3-8.2) g/dL Albumin 2.5 L (3.5-5.0) g/dL Ur Random Sodium <20 L (40-220) mmol/L 05/10/25 Range/Units 14:04 WBC (4.50-10.00) 10*3/uL RBC (4.40-5.60) 10*6/uL Hgb (13.0-17.0) g/dL Hct (39.6-50.0) % RDW (11.5-14.5) % Plt Count (140-440) 10*3/uL MPV (9.5-12.2) fL Immature Gran # (0.00-0.04) 10*3/uL Monocytes # (0.20-1.00) 10*3/uL Sodium 119 L* (137-145) mmol/L Potassium (3.5-5.1) mmol/L Chloride (98-107) mmol/L BUN (9-20) mg/dL Glucose (74-99) mg/dL Calcium (8.4-10.2) mg/dL Total Protein (6.3-8.2) g/dL Albumin (3.5-5.0) g/dL Ur Random Sodium (40-220) mmol/L
[2025-05-11 08:26] LABS: ALT 23 U/L (10-49); AST 15 U/L (14-35); Albumin 3.2 g/dL (3.8-4.9); Albumin/Globulin Ratio 1.88 Ratio (1.60-3.17); Alkaline Phosphatase 67 U/L (41-126); Anion Gap 7.40 mmol/L (4.00-12.00); BUN/Creat Ratio 44.78 Ratio (12.00-20.00); Blood Urea Nitrogen 40.3 mg/dL (9.0-27.0); Calcium 8.6 mg/dL (8.7-10.3); Carbon Dioxide 27.6 mmol/L (21.6-31.8); Chloride 93 mmol/L (96-109); Globulin 1.7 g/dL (1.6-3.3); Glucose 142 mg/dL (70-110); Potassium 4.2 mmol/L (3.5-5.5); Sodium 128 mmol/L (135-145); Total Protein 4.9 g/dL (6.2-8.2)
[2025-05-11 09:21] VITALS: BMI 23.1
[2025-05-11] MEDS: guaiFENesin-DM 100-10MG/5ML 10 ML CUP PO PRN (12:32)
--- NOTE | 2025-05-11 17:51 | P.PN ---
Subjective Patient is seen for follow-up for hyponatremia. Serum sodium increases rapidly with Samsca. He has not been responsive to other treatment including sodium chloride tabs and urea. Serum sodium this morning was 128. Patient received 15 mg of Samsca yesterday. This was his second dose. Blood pressure is not high Tolerating oral intake Urine osmolality 563 with random urine sodium less than 20 Objective - Vital Signs Vital signs: Vital Signs Temp 98.0 F 05/11/25 14:00 Pulse 92 05/11/25 16:41 Resp 17 05/11/25 14:00 BP 115/67 05/11/25 14:00 Pulse Ox 97 05/11/25 14:00 FiO2 Intake & Output 05/10/25 05/11/25 05/11/25 18:59 06:59 18:59 Intake Total 1250 250 Output Total 1400 3300 1400 Balance -1399 -2049 -1149 Weight 63 kg 63 kg Intake: Oral 1250 250 Output: Urine 1400 3300 1400 Other: Voiding Method Urinal Urinal # Voids 2 1 - Exam Patient is awake, comfortable, no acute distress Examination of the heart S1 and S2 Examination of the lungs bilateral breath sounds are heard Abdomen is soft nontender Examination of lower extremities shows no evidence of edema SADDLE MAKER exam grossly intact - Labs CBC & Chem 7: 05/10/25 03:15 05/11/25 16:03 Labs: Abnormal Lab Results - Last 24 Hours (Table) 05/10/25 05/11/25 05/11/25 Range/Units 17:23 03:35 16:03 Sodium 117 L* 128 L 125 L (137-145) mmol/L Chloride 93 L (96-109) mmol/L BUN 40.3 H (9.0-27.0) mg/dL BUN/Creatinine Ratio 44.78 H (12.00-20.00) Ratio Glucose 142 H (70-110) mg/dL Calcium 8.6 L (8.7-10.3) mg/dL Total Bilirubin <0.2 L (0.3-1.2) mg/dL Total Protein 4.9 L (6.2-8.2) g/dL Albumin 3.2 L (3.8-4.9) g/dL Assessment and Plan Assessment: 1. 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 His tory of EtOH abuse with poor oral intake. Urine osmolarity is 330 and 563. Currently maintained on urea. Status post 2 doses of Samsca. 2. History of EtOH abuse 3. COPD exacerbation 4. Possible pneumonia with infiltrates noted on the left lung. CT chest shows chronic findings with no recent change. Plan: Continue urea Continue sodium chloride tab and increase dose Repeat sodium this afternoon Maintain fluid restriction.
[2025-05-12 08:24] VITALS: BP 148/71; RESP 17; TEMP 98
--- NOTE | 2025-05-12 09:54 | P.PN ---
Subjective Progress Note Date: 05/11/25 Patient is a 69-year-old man with a known history of COPD on home oxygen of 2 L via nasal cannula, chronic CHF with systolic dysfunction ejection fraction 45 to 50%, hypertension, hyperlipidemia, history of alcohol use disorder, depression, prior history of smoking patient presents to ER with complaints of worsening shortness of breath. Patient states that he was recently recently seen in the ER on 04/28/2025, prescribed antibiotic course which he completed yesterday but his symptoms are not resolving and has been worsening since yesterday again. He was on Levaquin and steroid tapering course. Does have cough with whitish to light yellow sputum production. Denied any fever or chills. No complaints of chest pain. Patient is also complaining of generalized weakness and fatigue. No nausea vomiting abdominal pain or diarrhea. Chest x-ray showed COPD with marked emphysema. Patchy mid and lower lung opacity on the left persists and may be slightly increased. Underlying pneumonia not excluded.. EKG showed sinus rhythm with possible old septal [place]. Most recent echocardiogram done on 06/25/2024 showed LVEF 45 to 50% with moderate RV enlargement. Mild pulmonary hypertension. Laboratory data showed WBC 12.1 hemoglobin 12.6 and platelets 568 Sodium 129 potassium 4.2 chloride 94 bicarb is 27 BUN 26 and creatinine 0.79 and blood sugar 88 and magnesium 1.4. Troponin 0.012 and proBNP 256. 05/05/2025 Patient is seen in follow-up today mildly tearful and depressed although denies any suicidal ideation or thoughts of harming himself. Patient reports he has significant lung damage with asbestos and is not getting better and was told by pulmonary he has less than 25% function of his lungs. Patient is currently maintained on 3 L via nasal cannula which he is now wearing outpatient and continued on breathing treatments with also concerns of pneumonia. Suspicion for pneumonia is low and procalcitonin is 0.07. Will continue empiric Zithromax for now. Patient is afebrile with no reports of chest pain or palpitations although continues to report significant shortness of breath and extreme dyspnea with minimal exertion. Patient reports attempting to eat and tolerating some diet although not much of an appetite. Awaiting PT/OT therapy evaluation. 05/06/2025 Patient is seen in follow-up today continues to be bronchospastic and significantly short of breath doing more of getting up and walking to the bathroom maintained on 2 L currently at 97%. Patient is afebrile and procal citonin is negative. Will continue steroids, clinic breathing treatments with pulmonary following closely. Encouraged to increase activity as tolerated with sitting up in the chair more frequently. Patient does not feel ready for discharge home as he continues to be significantly short of breath with minimal exertion. Awaiting PT/OT therapy evaluation. 05/07/2025 Patient is seen in follow-up today breathing slightly improved and patient was able to shower on room air briefly and maintaining oxygen saturations. Patient is continued with pulmonary and nephrology following. Sodium is significantly low at 118 and being given some sodium chloride recommending repeat labs and close monitoring. Patient is not eating very well and encouraged oral intake. To continue with CIWA protocol as needed although patient is not actively withdrawing. Patient reports last drink was weeks ago. Encouraged increase activity as tolerated. Gait steady on exam 05/10/2025 Patient is seen in follow-up today with pulmonary and nephrology following. Sodium has gone down again and patient is maintained on urea twice daily. Current sodium is 120 and nephrology following. Potassium also on low potassium diet labs. Patient reports he is not sleeping much not eating well and has continued ongoing stress with major stressors in his life. Patient also reports he would like to discontinue steroids as it is contributing to him not sleeping. Recommend fluid restrictions and close monitoring of with replacement per protocol. Patient was transitioned to oral prednisone. Encouraged to increase as tolerated. 05/11/2025 patient seen and evaluated in follow-up today and reports to being extremely frustrated and agitated as he continues to feel like he has not been taking care of here and continues to have hyponatremia although it is slightly improved. Pulmonary had been following and has cleared the patient for discharge recommending outpatient follow-up. Patient is not discharged today although reports he is not able to obtain his medication and his ex- is refusing to pick him up reporting he is not ready for discharge. On exam patient is agitated and cursing about the poor service here with a steady gait walking all around the room on room air with no difficulties in breathing. Patient's oral intake is fair although he also reports the food here is horrible. Patient will be discharged and instructed to follow-up with primary care provider, nephrology, and pulmonary outpatient Review of systems: Constitutional: reports of fatigue and reports he has not slept in 7 days, no fever, or chills Cardiovascular: No reports of chest pain or palpitations Respiratory: reports of continued shortness of breath and extreme dyspnea with exertion . Frequent coughing and demanding cough syrup with codeine GI: No reports of nausea, vomiting, or diarrhea, reports not much of an appetite : No reports of dysuria or retention Neurovascular: reports of generalized weakness All medications have been reviewed PHYSICAL EXAMINATION: Patient is a 69-year-old male who is awake, alert and oriented x 3, agitated and walking all around the room cursing on room air in no respiratory distress, well-developed, elderly appearing, thin built, chronically ill-appearing HEENT: Normocephalic. Neck is supple. Pupils reactive. Nostrils clear. Oral cavity is moist. Neck reveals no JVD, carotid bruits, or thyromegaly. CHEST EXAMINATION: Trachea is central. Symmetrical expansion. Bilateral scattered rhonchi. Nonlabored breathing. Currently on room air on exam CARDIAC: S1, S2 muffled ABDOMEN: Soft. Thin, bowel sounds present no organomegaly. No abdominal bruits. Extremities: reveal no edema. No clubbing or cyanosis Neurologically awake, alert, oriented x3 with well-coordinated movements. No focal deficits noted and gait is steady Skin: No rash or skin lesions. Psychiatric: Cooperative. Non-suicidal, extremely anxious. appears depressed Musculoskeletal: No joint swelling or deformity. Normal range of motion. Assessment: Worsening shortness of breath secondary to acute COPD exacerbation Possible left lower lung pneumonia, community-acquired, although suspicion is low his procalcitonin is 0.07 Hyponatremia, likely secondary to beer Potomania, improving slightly Advanced COPD History of hypertension History of hyperlipidemia Acute on chronic chronic hypoxic respiratory failure currently on 2 L oxygen via nasal cannula Chronic CHF with systolic dysfunction ejection fraction 45 to 50%, not in exacerbation Cardiomyopathy ischemic versus nonischemic History of alcohol use disorder and reports his last drink was 04-20-2025 Depression Prior history of smoking DVT prophylaxis with heparin subcu GI prophylaxis Full code Plan: Patient will be continued on oxygen supplementation. Patient reports he has been wearing 3 L at home, currently on room air during exam Patient has completed a course of antibiotics. Procalcitonin was not elevated at 0.07. Sputum culture is negative Patient has started oral steroids along with continued DuoNebs and Symbicort. Pulmonary following. Patient will need outpatient follow-up Home medications reviewed and resumed as appropriate Patient does not appear to be actively withdrawing will continue as needed Ativan for extreme anxiety. Will also provide Restoril as needed for sleep Hyponatremia with nephrology following maintained on urea along with sodium chloride tablets recommending outpatient follow-up and will provide prescription for repeat labs in the next few days, currently 128 Encouraged oral intake and fluid restrictions Patient was discharged although reports he was unable to receive his medications and his ex- is refusing to pick them up reporting he is not ready for discharge. Patient has been cleared by consultations recommending outpatient follow-up from nephrology as well as pulmonary Will monitor overnight and await a ride or discussed with case management/social work regarding transportation home Overall prognosis is guarded. The impression and plan of care has been dictated by Emelyn Cole, Nurse Practitioner as directed. Dr. Sergio MD I have performed a history and examination and MDM of this patient, discussed the same with the dictator, and agree with the dictator's assessment and plan as written ,documented as a scribe. Based on total visit time, I have performed more than 50% of the visit. Objective - Vital Signs Vital signs: Vital Signs Temp 98.0 F 05/12/25 06:50 Pulse 85 05/12/25 06:50 Resp 17 05/12/25 06:50 BP 148/71 05/12/25 06:50 Pulse Ox 98 05/12/25 06:50 FiO2 Intake & Output 05/11/25 05/12/25 05/12/25 18:59 06:59 18:59 Intake Total 2000 Output Total 2200 1500 600 Balance -200 -1500 -600 Weight 63 kg 68.5 kg Intake: Oral 2000 Output: Urine 2200 1500 600 Other: Voiding Method Urinal Urinal # Voids 1 1 - Labs CBC & Chem 7: 05/10/25 03:15 05/11/25 16:03 Labs: Abnormal Lab Results - Last 24 Hours (Table) 05/11/25 Range/Units 16:03 Sodium 125 L (137-145) mmol/L
--- NOTE | 2025-05-12 09:57 | P.DS ---
Providers Date of admission: 05/04/25 16:42 Expected date of discharge: 05/12/25 Attending physician: Yo Goodrich MD Consults: 05/04/25 16:20 Consult Physician Routine Consulting Provider: Delaney Llanos Consult Reason/Comments: pneumonia Do you want consulting provider notified?: Yes, Notify in am 05/06/25 13:16 Consult Physician Urgent Consulting Provider: Mai Batres Consult Reason/Comments: hyponatremia Do you want consulting provider notified?: Yes Primary care physician: Trish Palacios Hospital Course: Final diagnosis Worsening shortness of breath secondary to acute COPD exacerbation Possible left lower lung pneumonia, community-acquired, although suspicion is low his procalcitonin is 0.07 Hyponatremia, likely secondary to beer Potomania, improving slightly Advanced COPD History of hypertension History of hyperlipidemia Acute on chronic chronic hypoxic respiratory failure currently on 2 L oxygen via nasal cannula Chronic CHF with systolic dysfunction ejection fraction 45 to 50%, not in exacerbation Cardiomyopathy ischemic versus nonischemic History of alcohol use disorder and reports his last drink was 04-20-2025 Depression Prior history of smoking DVT prophylaxis with heparin subcu GI prophylaxis Full code Discharge disposition Patient is being discharged in a stable condition with guarded prognosis to home. Patient will follow-up with Dr. Palacios in the outpatient setting upon discharge. Patient is to continue with current medications and repeat labs with outpatient follow-up with pulmonary as well as nephrology as scheduled. Total time taken is greater than 35 minutes. Hospital course Patient is a 69-year-old man with a known history of COPD on home oxygen of 2 L via nasal cannula, chronic CHF with systolic dysfunction ejection fraction 45 to 50%, hypertension, hyperlipidemia, history of alcohol use disorder, depression, prior history of smoking patient presents to ER with complaints of worsening shortness of breath. Patient states that he was recently recently seen in the ER on 04/28/2025, prescribed antibiotic course which he completed yesterday but his symptoms are not resolving and has been worsening since yesterday again. He was on Levaquin and steroid tapering course. Does have cough with whitish to light yellow sputum production. Denied any fever or chills. No complaints of chest pain. Patient is also complaining of generalized weakness and fatigue. No nausea vomiting abdominal pain or diarrhea. Chest x-ray showed COPD with marked emphysema. Patchy mid and lower lung opacity on the left persists and may be slightly increased. Underlying pneumonia not excluded.. EKG showed sinus rhythm with possible old septal PR. Most recent echocardiogram done on 06/25/2024 showed LVEF 45 to 50% with moderate RV enlargement. Mild pulmonary hypertension. Laboratory data showed WBC 12.1 hemoglobin 12.6 and platelets 568 Sodium 129 potassium 4.2 chloride 94 bicarb is 27 BUN 26 and creatinine 0.79 and blood sugar 88 and magnesium 1.4. Troponin 0.012 and proBNP 256. 05/05/2025 Patient is seen in follow-up today mildly tearful and depressed although denies any suicidal ideation or thoughts of harming himself. Patient reports he has significant lung damage with asbestos and is not getting better and was told by pulmonary he has less than 25% function of his lungs. Patient is currently maintained on 3 L via nasal cannula which he is now wearing outpatient and continued on breathing treatments with also concerns of pneumonia. Suspicion for pneumonia is low and procalcitonin is 0.07. Will continue empiric Zithromax for now. Patient is afebrile with no reports of chest pain or palpitations although continues to report significant shortness of breath and extreme dyspnea with minimal exertion. Patient reports attempting to eat and tolerating some diet although not much of an appetite. Awaiting PT/OT therapy evaluation. 05/06/2025 Patient is seen in follow-up today continues to be bronchospastic and significantly short of breath doing more of getting up and walking to the bathroom maintained on 2 L currently at 97%. Patient is afebrile and procalcitonin is negative. Will continue steroids, clinic breathing treatments with pulmonary following closely. Encouraged to increase activity as tolerated with sitting up in the chair more frequently. Patient does not feel ready for discharge home as he continues to be significantly short of breath with minimal exertion. Awaiting PT/OT therapy evaluation. 05/07/2025 Patient is seen in follow-up today breathing slightly improved and patient was able to shower on room air briefly and maintaining oxygen saturations. Patient is continued with pulmonary and nephrology following. Sodium is significantly low at 118 and being given some sodium chloride recommending repeat labs and close monitoring. Patient is not eating very well and encouraged oral intake. To continue with CIWA protocol as needed although patient is not actively w ithdrawing. Patient reports last drink was weeks ago. Encouraged increase activity as tolerated. Gait steady on exam 05/10/2025 Patient is seen in follow-up today with pulmonary and nephrology following. Sodium has gone down again and patient is maintained on urea twice daily. Current sodium is 120 and nephrology following. Potassium also on low potassium diet labs. Patient reports he is not sleeping much not eating well and has continued ongoing stress with major stressors in his life. Patient also reports he would like to discontinue steroids as it is contributing to him not sleeping. Recommend fluid restrictions and close monitoring of with replacement per protocol. Patient was transitioned to oral prednisone. Encouraged to increase as tolerated. 05/11/2025 patient seen and evaluated in follow-up today and reports to being extremely frustrated and agitated as he continues to feel like he has not been taking care of here and continues to have hyponatremia although it is slightly improved. Pulmonary had been following and has cleared the patient for discharge recommending outpatient follow-up. Patient is not discharged today although reports he is not able to obtain his medication and his ex- is refusing to pick him up reporting he is not ready for discharge. On exam patient is agitated and cursing about the poor service here with a steady gait walking all around the room on room air with no difficulties in breathing. Patient's oral intake is fair although he also reports the food here is horrible. Patient will be discharged and instructed to follow-up with primary care provider, nephrology, and pulmonary outpatient 05/12/2025 Patient will be discharged home today and arrangements for transportation can be made if ex- is refusing to pick him up. Patient has been instructed to follow-up with primary care provider as well as nephrology and pulmonary outpatient. Prescriptions have been sent and pharmacy is open for pickup. Recommend repeat labs to monitor electrolytes as well as sodium level. Strongly encouraged complete alcohol cessation. Currently no reports of worsening shortness of breath, denies chest pain or palpitations. Patient is tolerating diet and recommend fluid restrictions along with continued sodium chloride tabs. Please refer to other consultation notes for further HPI. Overall guarded prognosis and high risk for readmissions given continued ongoing significant comorbidities and noncompliance with continued alcohol abuse. PHYSICAL EXAMINATION: Patient is a 69-year-old male who is awake, alert and oriented x 3, agitated and walking all around the room cursing on room air in no respiratory distress, well-developed, elderly appearing, thin built, chronically ill-appearing HEENT: Normocephalic. Neck is supple. Pupils reactive. Nostrils clear. Oral cavity is moist. Neck reveals no JVD, carotid bruits, or thyromegaly. CHEST EXAMINATION: Trachea is central. Symmetrical expansion. Bilateral scattered rhonchi. Nonlabored breathing. Currently on room air on exam CARDIAC: S1, S2 muffled ABDOMEN: Soft. Thin, bowel sounds present no organomegaly. No abdominal bruits. Extremities: reveal no edema. No clubbing or cyanosis Neurologically awake, alert, oriented x3 with well-coordinated movements. No focal deficits noted and gait is steady Skin: No rash or skin lesions. Psychiatric: Cooperative. Non-suicidal, extremely anxious. appears depressed Musculoskeletal: No joint swelling or deformity. Normal range of motion. Please refer to medication reconciliation sheet for a list of medications. The impression and plan of care has been dictated by Emelyn Cole, Nurse Practitioner as directed. Dr. Sergio MD I have performed a history and examination and MDM of this patient, discussed the same with the dictator, and agree with the dictator's assessment and plan as written ,documented as a scribe. Based on total visit time, I have performed more than 50% of the visit. Patient Condition at Discharge: Fair Plan - Discharge Summary Discharge Rx Participant: Yes New Discharge Prescriptions: New Tamsulosin [Flomax] 0.4 mg PO PC-BRKFST #30 cap Folic Acid 1 mg PO DAILY #30 tab Multivitamins, Thera [Multivitamin (formulary)] 1 each PO DAILY #30 tab Sodium Chloride Tab 1 gm PO BID #60 tab Thiamine [Vitamin B-1] 100 mg PO DAILY #30 tab Fluticasone Nasal [place] [Flonase Nasal [place]] 2 spray EA NOSTRIL DAILY #5 ml amLODIPine [Norvasc] 10 mg PO DAILY #30 tab guaiFENesin-DM 100-10MG/5ML [Robitussin DM] 10 ml PO Q6HR PRN #120 ml PRN Reason: Cough Acetaminophen Tab [Tylenol] 650 mg PO Q6HR PRN tab PRN Reason: Mild Pain Or Fever > 100.5 predniSONE See Taper PO DIRECTED #30 tab Continue Omeprazole 20 mg PO DAILY Cyclobenzaprine [Flexeril] 20 mg PO HS Budesonide/Formoterol Fumarate [Symbicort 160-4.5 Mcg Inhaler] 2 puff INHALATION RT-BID LORazepam [Ativan] 2 mg PO HS Venlafaxine HCl [Effexor] 100 mg PO BID Aspirin EC [Ecotrin Low Dose] 81 mg PO DAILY Discontinued Furosemide [Lasix] 20 mg PO DAILY lisinopriL [Zestril] 10 mg PO DAILY Discharge Medication List Cyclobenzaprine [Flexeril] 20 mg PO HS 06/24/24 [History] LORazepam [Ativan] 2 mg PO HS 06/24/24 [History] Omeprazole 20 mg PO DAILY 06/24/24 [History] Venlafaxine HCl [Effexor] 100 mg PO BID 04/28/25 [History] Aspirin EC [Ecotrin Low Dose] 81 mg PO DAILY 05/04/25 [History] Budesonide/Formoterol Fumarate [Symbicort 160-4.5 Mcg Inhaler] 2 puff INHALATION RT-BID 05/04/25 [History] Acetaminophen Tab [Tylenol] 650 mg PO Q6HR PRN tab 05/11/25 [Rx] Fluticasone Nasal [place] [Flonase Nasal [place]] 2 spray EA NOSTRIL DAILY #5 ml 05/11/25 [Rx] Folic Acid 1 mg PO DAILY #30 tab 05/11/25 [Rx] Multivitamins, Thera [Multivitamin (formulary)] 1 each PO DAILY #30 tab 05/11/25 [Rx] Sodium Chloride Tab 1 gm PO BID #60 tab 05/11/25 [Rx] Tamsulosin [Flomax] 0.4 mg PO PC-BRKFST #30 cap 05/11/25 [Rx] Thiamine [Vitamin B-1] 100 mg PO DAILY #30 tab 05/11/25 [Rx] amLODIPine [Norvasc] 10 mg PO DAILY #30 tab 05/11/25 [Rx] guaiFENesin-DM 100-10MG/5ML [Robitussin DM] 10 ml PO Q6HR PRN #120 ml 05/11/25 [Rx] predniSONE See Taper PO DIRECTED #30 tab 05/11/25 [Rx] Follow up Appointment(s)/Referral(s): Delaney Llanos MD [STAFF PHYSICIAN] - 06/09/25 10:00 am () Mai Batres MD [STAFF PHYSICIAN] - 1 Week ( discharged after 5 pm unable to make appointment ) Trish Palacios MD [Primary Care Provider] - 1-2 days (discharged after 5 pm unable to make appointment ) Ambulatory/Diagnostic Orders: Basic Metabolic Panel [LAB.AMB] Time Frame: 3 Days, Location: None Selected Activity/Diet/Wound Care/Special Instructions: Activity limited until follow-up Follow-up with primary care provider on discharge Follow-up with nephrology outpatient Continue taking medications as prescribed Follow-up with pulmonary outpatient Discharge/Stand Alone Forms: Community Resources, Help In The Home Discharge Disposition: HOME SELF-CARE
[2025-05-12 11:52] LABS: African American GFR (CKD) >90 (>60 ml/min/1.73 sqM); Anion Gap 5 mmol/L; Blood Urea Nitrogen 54 mg/dL (9-20); Calcium 9.0 mg/dL (8.4-10.2); Carbon Dioxide 26 mmol/L (22-30); Chloride 95 mmol/L (98-107); Glucose 102 mg/dL (74-99); Magnesium 1.8 mg/dL (1.6-2.3); Non-African American GFR(CKD) >90 (>60 ml/min/1.73 sqM); Potassium 4.6 mmol/L (3.5-5.1); Sodium 126 mmol/L (137-145)
--- NOTE | 2025-05-12 12:16 | P.PN ---
Subjective Patient is seen in follow-up for hyponatremia. Sodium level stable at 126 today. On urea and sodium chloride tabs. Vital signs are stable. General: No acute distress. HEENT: Head exam is unremarkable. On nasal cannula. LUNGS: No audible rhonchi or wheezes. HEART: Rate and Rhythm are regular. ABDOMEN: Non-tender. EXTREMITITES: No edema. Objective - Vital Signs Vital signs: Vital Signs Temp 98.0 F 05/12/25 06:50 Pulse 85 05/12/25 06:50 Resp 17 05/12/25 09:35 BP 148/71 05/12/25 06:50 Pulse Ox 98 05/12/25 06:50 FiO2 Intake & Output 05/11/25 05/12/25 05/12/25 18:59 06:59 18:59 Intake Total 2000 Output Total 2200 1500 1100 Balance -200 -1500 -1100 Weight 63 kg 68.5 kg Intake: Oral 2000 Output: Urine 2200 1500 1100 Other: Voiding Method Urinal Urinal # Voids 1 1 - Labs CBC & Chem 7: 05/10/25 03:15 05/12/25 11:25 Labs: Abnormal Lab Results - Last 24 Hours (Table) 05/11/25 05/12/25 Range/Units 16:03 11:25 Sodium 125 L 126 L (137-145) mmol/L Chloride 95 L (98-107) mmol/L BUN 54 H (9-20) mg/dL Glucose 102 H (74-99) mg/dL Assessment and Plan Plan: Assessment: 1. Hyponatremia, euvolemic. Worsened with saline. Concern for SIADH as well as poor solute intake. Status post [facility]. Maintain on urea and salt tabs. Urine sodium less than 20 and urine osmolality 563. 2. Pneumonia on antibiotics. 3. History of alcohol abuse. Plan: Maintain urea. Maintain salt tabs for now. Add low-dose Lasix 20 mg once daily. Maintain fluid restriction. Check TSH. Advised patient to maintain fluid restriction of less than 55 ounces per day upon discharge and to increase protein intake. Repeat BMP and magnesium level 2 to 3 days postdischarge. Follow-up outpatient 1 week postdischarge.
[2025-05-12] MEDS: FUROSEMIDE 20 MG TAB PO SCH (12:35)
[2025-05-12 13:11] VITALS: PULSE 95
== END 2025-05-12 14:54 | disposition home health service (06) | DRG 190 ==
LOC: EC 12:31 → 4SSUR 16:42
PROVIDERS: ADMIT Internal Medicine; ATTEND Internal Medicine
DX: J44.1 Chronic obstructive pulmonary disease with (acute) exacerbation (principal); J18.9 Pneumonia, unspecified organism; J96.21 Acute and chronic respiratory failure with hypoxia; E22.2 Syndrome of inappropriate secretion of antidiuretic hormone; I50.22 Chronic systolic (congestive) heart failure; I11.0 Hypertensive heart disease with heart failure; Z99.81 Dependence on supplemental oxygen; F10.20 Alcohol dependence, uncomplicated; J44.0 Chronic obstructive pulmonary disease with (acute) lower respiratory infection; F32.A Depression, unspecified; J43.9 Emphysema, unspecified; E78.5 Hyperlipidemia, unspecified; E83.42 Hypomagnesemia; I25.2 Old myocardial infarction; Z77.090 Contact with and (suspected) exposure to asbestos; Z79.51 Long term (current) use of inhaled steroids; Z79.82 Long term (current) use of aspirin; Z79.899 Other long term (current) drug therapy; Z87.891 Personal history of nicotine dependence; Z71.41 Alcohol abuse counseling and surveillance of alcoholic; Z91.199 Patient's noncompliance with other medical treatment and regimen due to unspecified reason
CPT/HCPCS: 36415; 71046; 71250; 80048; 80053; 82570; 83605; 83735; 83880; 83935; 84145; 84156; 84295; 84300; 84484; 85025; 85610; 85730; 87070; 87205; 93005; 94640; 94760; 96365; 96375; 99285

== ENCOUNTER → 2025-05-14 | Outpatient (CLI) | payer MEDICARE, OTHER ==
[2025-05-14 15:17] LABS: HCT 35.0 % (39.6-50.0); HGB 11.9 g/dL (13.0-17.0); MCH 29.6 pg (27.0-32.0); MCHC 34.0 g/dL (32.0-37.0); MCV 87.1 FL (80.0-97.0); NRBC Per 100 WBC 0 X 10*3/uL (0.00-0.01); Platelet Count 579 X 10*3/uL (140-440); RBC 4.02 X 10*6/uL (4.40-5.60); RDW 16.1 % (11.5-14.5); WBC 11.57 X 10*3/uL (4.50-10.00)
[2025-05-14 15:32] LABS: INR 0.95 sec (0.93-1.11); Prothrombin Time 10.7 sec (9.9-11.9)
[2025-05-14 15:37] LABS: NT-Pro-B-Type Natriuretic Pept 73 pg/mL (0-125)
[2025-05-14 15:49] LABS: Basophils # (A) 0.02 X 10*3/uL (0.00-0.10); Basophils % (A) 0.2 %; Eosinophils # (A) 0.18 X 10*3/uL (0.04-0.35); Eosinophils % (A) 1.6 %; Immature Grans, Automated 0.90 %; Lymphocytes # (A) 4.58 X 10*3/uL (0.90-5.00); Lymphocytes % (A) 39.6 %; Monocytes # (A) 1.63 X 10*3/uL (0.20-1.00); Monocytes % (A) 14.1 %; Neutrophils # (A) 5.06 X 10*3/uL (1.80-7.70); Neutrophils % (A) 43.6 %; Target Cells 2+ (None Seen)
[2025-05-14 16:10] LABS: Cholesterol 273.00 mg/dL (0.00-200.00); Ferritin 272.0 ng/mL (22.0-322.0); HDL Cholesterol 128.00 mg/dL (40.00-60.00); LDL Cholesterol,Calculated 115.0 mg/dL (0.0-131.0); Triglycerides 150.00 mg/dL (0.00-149.00); VLDL Calculation 30.00 mg/dL (5.00-40.00)
[2025-05-14 16:11] LABS: Iron 259 UG/DL (65-175); Prostate Specific Antigen 0.24 ng/mL (0.000-4.500); T4, Free (Free Thyroxine) 1.49 ng/dL (0.80-1.80); Total Iron Binding Capacity 336 UG/DL (228-460); Vitamin B12 1523.0 pg/mL (200.0-944.0)
[2025-05-14 16:16] LABS: ALT 30 U/L (10-49); AST 19 U/L (14-35); Albumin 3.8 g/dL (3.8-4.9); Albumin/Globulin Ratio 1.90 Ratio (1.60-3.17); Alkaline Phosphatase 70 U/L (41-126); Anion Gap 12.40 mmol/L (4.00-12.00); BUN/Creat Ratio 31.89 Ratio (12.00-20.00); Blood Urea Nitrogen 28.7 mg/dL (9.0-27.0); Calcium 9.1 mg/dL (8.7-10.3); Carbon Dioxide 25.6 mmol/L (21.6-31.8); Chloride 94 mmol/L (96-109); Globulin 2.0 g/dL (1.6-3.3); Glucose 92 mg/dL (70-110); Potassium 4.2 mmol/L (3.5-5.5); Sodium 132 mmol/L (135-145); Total Protein 5.8 g/dL (6.2-8.2)
== END | disposition home or self-care (01) ==
LOC: LABWHC1 11:20
PROVIDERS: ATTEND Family Medicine
DX: I50.23 Acute on chronic systolic (congestive) heart failure (principal); I12.9 Hypertensive chronic kidney disease with stage 1 through stage 4 chronic kidney disease, or unspecified chronic kidney disease; K92.0 Hematemesis; N40.0 Benign prostatic hyperplasia without lower urinary tract symptoms; G62.1 Alcoholic polyneuropathy; D51.8 Other vitamin B12 deficiency anemias; R73.9 Hyperglycemia, unspecified
CPT/HCPCS: 36415; 80053; 80061; 82607; 82728; 83036; 83540; 83550; 83880; 84153; 84439; 84443; 85025; 85610